=== PATIENT | female | born 1965 | race Caucasian/White ===

== ENCOUNTER → 2024-01-25 | Outpatient (CLI) | payer MEDICAID, SELFPAY ==
--- NOTE | 2024-01-25 07:43 | MRI_ITS ---
STUDY: MRI BRAIN WITH AND WITHOUT CONTRAST REASON FOR EXAM: Female, 58 years old. possible epilepsy; cognitive impairment POSSIBLE EPILEPSY, HALLUCINATIONS, INVOLUNTARY TREMORS TECHNIQUE: Standardized multiplanar fat and water weighted pulse sequences were obtained. IV 14CC CLARISCAN was administered for the contrast portion of the examination. COMPARISON: None. FINDINGS: Normal size of the ventricles and extra-axial spaces for the patient''s age. There are a limited number of small white matter hyperintensities, distributed throughout the deep white matter tracts of the cerebral hemispheres, consistent with mild chronic white matter ischemic changes. There is no evidence for recent intracranial ischemia or other cause of cytotoxic edema on diffusion weighted imaging (DWI). Normal T2* images of the brain without demonstrated susceptibility artifact. There is no demonstrated hemosiderin stain. There are no demyelinating plagues of the supratentorial brain, brainstem or cerebellum. There are no findings suspicious for multiple sclerosis (MS). Normal bilateral basal ganglia. Normal thalami. There is no extra-axial fluid accumulation. Normal flow voids within the major intracranial circulation suggesting patency by spin echo criteria. Normal venous enhancement. There is no enhancing intra-axial or extra-axial abnormality. No suspicious or enhancing lesions of the brain parenchyma present. There is no abnormal thickening or enhancement of meninges or dura. No skull lesions are present. Normal sella turcica, pituitary gland, infundibular stalk, optic chiasm and hypothalamus. Normal tectal plate and pineal gland. Normal midbrain, deysi and medulla. Normal cerebellum. Normal basal cisterns. Normal bilateral temporal bones. Normal bilateral internal auditory canals. No demonstrated orbital abnormality, within the constraints of a routine brain study. Normal visualized paranasal sinuses. Normal calvarium and skull base. Normal visualized soft tissue structures. Normal visualized upper cervical spine. MRI/Brain W/WO Contrast IMPRESSION: 1. Minimal chronic ischemic changes of the brain, as described above. Electronically Signed: Main Cerna MD at 10:04 EDT ,
== END | disposition home or self-care (01) ==
LOC: MRI 07:16
PROVIDERS: PCP Internal Medicine; Referring Provider Psychiatry & Neurology Neurology; Visit Provider Psychiatry & Neurology Neurology
DX: R44.3 Hallucinations, unspecified (principal)
CPT/HCPCS: 70553; A9575

== ENCOUNTER → 2024-02-03 | Outpatient (CLI) | payer MEDICAID, SELFPAY | END | disposition home or self-care (01) | LOC: PSN 08:06 | PROVIDERS: PCP Internal Medicine; Referring Provider Psychiatry & Neurology Neurology; Visit Provider Psychiatry & Neurology Neurology | DX: R56.9 Unspecified convulsions (principal); R44.3 Hallucinations, unspecified | CPT/HCPCS: 95819 ==

== ENCOUNTER 2024-03-18 20:47 | Emergency (ER) | payer MEDICAID, SELFPAY ==
[2024-03-18 20:48] VITALS: BP 123/83; PULSE 83; RESP 16; TEMP 36.8; O2SAT 96; BMI 26.0
[2024-03-18 21:58] LABS: Absolute Lymphocyte Count 1.54 X10^3/uL (0.83-4.51); Absolute Neutrophil Count 7.3 X10^3/uL (2.0-7.7); Basophil% 0.8 % (0-1); Eosinophils% 1.1 % (0-5); Hematocrit 41.4 % (37-47); Lymphocyte # 1.54 X10^3/ul (0.83-4.51); Lymphocyte % 15.3 % (19-41); Mean Corp Hgb Conc 33.8 g/dL (32-36); Mean Corpuscular Hgb 29.7 pg (27.0-32.0); Mean Corpuscular Volume 87.9 fL (81-99); Mean Platelet Vol. 8.3 fl (6.2-12.0); Monocyte% 9.7 % (0-10); Neutrophil # 7.32 X10^3/uL (2.7-7.7); Neutrophil % 72.7 % (47-70); Platelet Count 327 K/mm3 (150-450); RBC Distribution Width CV 12.9 % (11.6-14.6); RBC Distribution Width SD 41.8 fl (35.1-43.9); Red Blood Count 4.71 M/mm3 (4.2-5.4); White Blood Count 10.1 K/mm3 (4.4-11.0)
[2024-03-18 21:59] LABS: Basophil# 0.08 X10^3/uL; Eosinophil# 0.11 X10^3/uL; Monocyte# 0.98 X10^3/uL; NRBC Flagged by Analyzer 0 % (0-5)
[2024-03-18 22:07] LABS: Amphetamine Urine VISTA NEGATIVE (<1000 ng/mL); Barbiturate Urine VISTA NEGATIVE (< 200 ng/mL); Benzodiazepine Urine VISTA NEGATIVE (< 200 ng/mL); Cocaine Urine VISTA NEGATIVE (< 300 ng/mL); Ecstacy Urine VISTA NEGATIVE (< 500 ng/mL); Methadone Urine VISTA NEGATIVE (< 300 ng/mL); PCP Urine VISTA NEGATIVE (< 25 ng/mL); THC Urine VISTA NEGATIVE (< 50 ng/mL); Vista UDS pH Range 6
[2024-03-18 22:17] LABS: Alcohol, Blood (Medical)-Serum < 3.0 mg/dL
[2024-03-18 22:21] LABS: ALB/GLOB Ratio 0.9 RATIO (0.9-2.4); AST(SGOT) 20 U/L (15-37); Alanine Aminotransfer ALT/SGPT 34 U/L (13-56); Albumin, Serum 3.8 g/dL (3.2-5.0); Alkaline Phosphatase 115 U/L (45-117); Anion Gap 6 (5-15); BUN 16 mg/dL (7-18); BUN/Creat Ratio 21.3 RATIO (10-20); Calcium,Total 9.7 mg/dL (8.5-10.1); Chloride 107 mmol/L (98-107); Creatinine, Serum 0.75 mg/dL (0.55-1.02); EST Glomerular Filtration Rate 84 mL/min (>60); Est Glom Filt Rate - Afr Amer 102 mL/min (>60); Estimated Creatinine Clearance 84.74 ml/min; Globulin 4.1 g/dL (2.2-4.2); Glucose 114 mg/dL (74-106); Potassium 3.8 mmol/L (3.5-5.1); Protein, Total 7.9 g/dL (6.4-8.2); Sodium Level 140 mmol/L (136-145)
--- NOTE | 2024-03-18 22:27 | EDS_ITS ---
HPI HPI - Psych History of Present Illness Chief Complaint: Mental Health Narrative Narrative: History and physical is limited secondary to patient's psychiatric condition. 58-year-old female presents from [place] [facility] with increased psychosis after being taken off medications/medication adjustment. She has been pink slipped by the psychiatric nurse practitioner at the facility. It was reported that when they came to her few months ago, she was heavily medicated, and was more nonverbal and would walk to the lunchroom and back. As they adjusted her medications, over the last week she has decompensated and has become more psychotic. She is not redirectable. 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 She was also walking around the facility without clothing. Here in the emergency department, she states that she is nervous but denies any physical symptoms such as chest pain cough, problems with urination, or any other symptoms. PFSH PFS Medical History unable to obtain Home Medications ?Medication ?Instructions ?Recorded ?Last Taken ?Type Bacillus coagulans 2.5 billion cell PO 12/29/23 Unknown History cell chewable tablet (Probiotic (B. coagulans)) acetaminophen 325 mg chewable 650 mg PO Q4-6H PRN 12/29/23 Unknown History tablet bgvpxao-uavxriywjyxqf-fadtbufm 250 2 tab PO ONCE PRN 12/29/23 Unknown History mg-250 mg-65 mg tablet (Excedrin Migraine) atorvastatin 20 mg tablet 20 mg PO QHS 12/29/23 Unknown History benztropine 0.5 mg tablet 0.5 mg PO BID 12/29/23 Unknown History bisacodyl 10 mg rectal suppository 10 mg AL DAILY PRN 12/29/23 Unknown History (Dulcolax (bisacodyl)) bisacodyl 5 mg tablet,delayed 10 mg PO ONCE 12/29/23 Unknown History release coenzyme Q10 100 mg capsule 100 mg PO DAILY 12/29/23 Unknown History (CoQ-10) donepezil 5 mg disintegrating 2.5 mg PO DAILY 12/29/23 Unknown History tablet fluoxetine 60 mg tablet 60 mg PO QAM 12/29/23 Unknown History lamotrigine 200 mg tablet 200 mg PO BID 12/29/23 Unknown History magnesium hydroxide 400 mg/5 mL 30 ml PO DAILY PRN 12/29/23 Unknown History oral suspension (Milk of Magnesia) mineral oil (Fleet Mineral Oil 118 ml AL DAILY PRN 12/29/23 Unknown History enema) perphenazine 8 mg tablet 8 mg PO BID 12/29/23 Unknown History promethazine 25 mg/mL injection 25 mg IM Q8H PRN PRN 12/29/23 Unknown History syringe trazodone 50 mg tablet 25 mg PO QHS 12/29/23 Unknown History Allergy/AdvReac Type Severity Reaction Status Date / Time blue dye Allergy PT UNSURE Verified 03/18/24 21:13 OF REACTION monosodium glutamate (msg) Allergy PT UNSURE Verified 03/18/24 21:13 OF REACTION sertraline (From Zoloft) Allergy PT UNSURE Verified 03/18/24 21:13 OF REACTION shellfish derived Allergy PT UNSURE Verified 03/18/24 21:13 OF REACTION Sulfa (Sulfonamide Allergy unknown Verified 03/18/24 21:13 Antibiotics) Family History unable to obtain Surgical History unable to obtain Social History Smoking Status: Never smoker ROS ROS ED ROS Narrative Unable to obtain from patient's secondary to psychiatric condition. EXAM Physical Exam Narrative Exam Narrative: Afebrile. Vital signs noted. Regular rate and rhythm. Lungs clear to auscultation bilaterally. Abdomen soft nontender with normal active bowel sounds. Ambulatory in ED. Psychiatric examination shows acute psychosis. She states that she sees things but denies any auditory hallucinations. She is able to ambulate to the bathroom and back. She keeps coming out of her room, and fidgeting with something behind the bed. Const Vital Signs: 03/18/24 20:48 03/18/24 23:23 Temperature 98.3 F Temperature Source Temporal Pulse Rate 83 75 Respiratory Rate 16 18 Blood Pressure 123/83 H 109/67 Blood Pressure Mean 96 81 Pulse Ox 96 95 Oxygen Delivery Method Room Air Room Air MDM MDM MDM Narrative Medical decision making narrative: Differential diagnosis includes but not limited to metabolic cause of delirium versus her history of dementia when I reviewed her previous problem list. I feel she has more decompensated psychosis. As she is not redirectable and becoming more agitated, she was administered Geodon 20 mg intramuscularly. I reviewed her laboratory work and she has a white count that is normal at 10.1 with hemoglobin 14.0, hematocrit 41.4, BUN of 16 and creatinine 0.75, normal sodium of 140 and potassium 3.8. Urine for drugs of abuse is negative. Ethanol level is also negative. At this point in time, I feel she is medically cleared for evaluation by the mental health counselor. I do feel that she will need placement in a psychiatric facility as she has decompensated. Currently patient is in stable condition. Patient did require 20 mg of Geodon as she was not redirectable. She kept exiting her room and was becoming more psychotic. At around 1:05 AM, she began screaming, and calling out and becoming more psychotic. She will be given Haldol, Ativan, and Benadryl. She is still pending evaluation by crisis. Patient is in stable condition. History & Record Review Additional record(s) reviewed:: Prior ED visit Lab Data Attestation: I reviewed the patient's lab results. Labs: Laboratory Results - last 24 hr 03/18/24 03/18/24 21:20 21:51 WBC 10.1 RBC 4.71 Hgb 14.0 Hct 41.4 MCV 87.9 MCH 29.7 MCHC 33.8 RDW Std Deviation 41.8 RDW Coeff of Ivan 12.9 Plt Count 327 MPV 8.3 Immature Gran % (Auto) 0.400 Neut % (Auto) 72.7 H Lymph % (Auto) 15.3 L [place] % (Auto) 9.7 Eos % (Auto) 1.1 Baso % (Auto) 0.8 Absolute Neuts (auto) 7.3 Absolute Lymphs (auto) 1.54 Nucleated RBC % 0 Sodium 140 Potassium 3.8 Chloride 107 Carbon Dioxide 27.0 Anion Gap 6 BUN 16 Creatinine 0.75 Estim Creat Clear Calc 84.74 Est GFR (MDRD) Af Amer 102 Est GFR (MDRD) Non-Af 84 BUN/Creatinine Ratio 21.3 H Glucose 114 H Calcium 9.7 Total Bilirubin 0.50 AST 20 ALT 34 Alkaline Phosphatase 115 Total Protein 7.9 Albumin 3.8 Globulin 4.1 Albumin/Globulin Ratio 0.9 Urine Opiates Screen NEGATIVE Urine Methadone Screen NEGATIVE Ur Barbiturates Screen NEGATIVE Ur Phencyclidine Scrn NEGATIVE Ur Amphetamines Screen NEGATIVE MDMA (Ecstasy) Screen NEGATIVE U Benzodiazepines Scrn NEGATIVE Urine Cocaine Screen NEGATIVE U Cannabinoids Screen NEGATIVE Ur Drug Screen Comment Ethyl Alcohol < 3.0 Discharge Plan Triage Chief Complaint: Mental Health ED Provider: Yoel Power Dx/Rx/DC Orders Prescriptions: No Action acetaminophen 325 mg tablet,chewable 650 mg PO Q4-6H PRN donepezil 5 mg tablet,disintegrating 2.5 mg PO DAILY atorvastatin 20 mg tablet 20 mg PO QHS benztropine 0.5 mg tablet 0.5 mg PO BID bisacodyl 5 mg tablet,delayed release (DR/EC) 10 mg PO ONCE coenzyme Q10 [CoQ-10] 100 mg capsule 100 mg PO DAILY bisacodyl [Dulcolax (bisacodyl)] 10 mg suppository 10 mg AL DAILY PRN Excedrin Migraine 250-250-65 mg tablet 2 tab PO ONCE PRN mineral oil [Fleet Mineral Oil] Enema 118 ml AL DAILY PRN Rx Instructions: discard any unused portion fluoxetine 60 mg tablet 60 mg PO QAM lamotrigine 200 mg tablet 200 mg PO BID magnesium hydroxide [Milk of Magnesia] 400 mg/5 mL suspension 30 ml PO DAILY PRN perphenazine 8 mg tablet 8 mg PO BID promethazine 25 mg/mL syringe 25 mg IM Q8H PRN PRN Probiotic (B. coagulans) 2.5 billion cell tablet,chewable PO trazodone 50 mg tablet 25 mg PO QHS Primary Care Provider: Syl Machado Referrals: Syl Machado MD [Primary Care Provider] - Print Language: Hungarian
--- NOTE | 2024-03-18 22:55 | ED.RN ---
Pt yelling, screaming, and trying to leave room. made aware, orders being put in.
[2024-03-18] MEDS: Ziprasidone IM 20 MG/ML VIAL IM (22:58)
[2024-03-18 23:23] VITALS: BP 109/67; PULSE 75; RESP 18; O2SAT 95
--- NOTE | 2024-03-19 01:18 | ED.RN ---
Pt continues to yell and scream while trying to leave room. Pt also states I will bite you. Pt tried to rip off the hand night supervisor dispenser in room. Dr. Power made aware, orders being placed.
[2024-03-19] MEDS: Haloperidol Lactate 5 MG/ML Vial IM (01:22)
[2024-03-19] MEDS: LORazepam 2 MG/ML Syringe IM (01:22)
[2024-03-19] MEDS: DiphenhydrAMINE 50 MG/ML Syringe 25 MG IM (01:22)
[2024-03-19 03:23] VITALS: BP 91/62; PULSE 63; RESP 16; O2SAT 93
[2024-03-19 06:39] VITALS: BP 91/62; PULSE 63; RESP 16; TEMP 36.7; O2SAT 93
--- NOTE | 2024-03-19 06:43 | ED.RN ---
Attempted to call pt's sister Tosin to give update, no answer at this time.
--- NOTE | 2024-03-19 06:51 | ED.RN ---
This RN contacted [facility] and gave nurse Yen an update of pt being transferred to [facility].
[2024-03-19 07:00] VITALS: BP 96/82; PULSE 59; RESP 12; O2SAT 97
--- NOTE | 2024-03-19 09:35 | NURSING ---
GENERATIONS CALLED TO CHANGE LOCATION FROM [place] TO [place] DR[address] PANFILO MONTELONGO [phone] OPT 2
== END 2024-03-19 10:10 ==
LOC: ED 22:41
PROVIDERS: Emergency Provider Emergency Medicine; PCP Internal Medicine; Visit Provider Emergency Medicine
DX: F29 Unspecified psychosis not due to a substance or known physiological condition (principal)
CPT/HCPCS: 80053; 80307; 82077; 85025; 93005; 96372; 99285; J3486

== ENCOUNTER 2024-08-14 05:42 | Day surgery (SDC) | payer MEDICAID, SELFPAY ==
[2024-08-14] VITALS (7 sets, daily range): BP systolic 105–115; BP diastolic 74–82; PULSE 79–91; RESP 16–18; TEMP 36.2–36.6; O2SAT 97–99; BMI 29.5
--- NOTE | 2024-08-14 06:21 | PRE.ANES_ITS ---
ASA Classification* ASA Classification ASA Classification: 2 Assessment & Plan Anesthesia* Anesthesia Assessment Anesthesia Assessment: Discussed sedation and/or anesthesia options, risks, benefits, and alternatives with patient/parents/legal guardian/POA. Questions invited. The patient/parents/legal guardian/POA seems to understand and agrees to proceed with anesthesia plan. Reviewed the physical assessment, medical history, allergy history and patient home medications list prior to surgery/procedure/anesthetic and documented any changes. Performed airway and anesthesia risk assessments. Anesthesia Type Anesthesia Type: General (Pleasant 59 y/o F diagnosed with bipolar/schizo, seems to be well controlled. Otherwise has hx of GERD, ) History Source History Obtained from:: Patient and Chart Anesthesia Focused Assessment* Temperature: 97.7 F Pulse Rate: 91 Blood Pressure: 109/82 Respiratory Rate: 16 Pulse Ox: 99 Oxygen Delivery Method: Room Air Airway Assessment Mouth opens: >3 cm Mallampati Score: II Teeth Condition: Intact and Chipped/Broken (top left) Neck Range of motion (ROM): Full ROM Focused Labs Anesthesia Preop lab: CBC WBC 10.1 K/mm3 (4.4-11.0) 03/18/24 21:51 03/18/24 RBC 4.71 M/mm3 (4.2-5.4) 03/18/24 21:51 03/18/24 Hgb 14.0 g/dL (12.0-15.0) 03/18/24 21:51 03/18/24 Hct 41.4 % (37-47) 03/18/24 21:51 03/18/24 Plt Count 327 K/mm3 (150-450) 03/18/24 21:51 03/18/24 CHEMISTRY Potassium 3.8 mmol/L (3.5-5.1) 03/18/24 21:51 03/18/24 Sodium 140 mmol/L (136-145) 03/18/24 21:51 03/18/24 BUN 16 mg/dL (7-18) 03/18/24 21:51 03/18/24 Creatinine 0.75 mg/dL (0.55-1.02) 03/18/24 21:51 03/18/24 Glucose 114 mg/dL (74-106) H 03/18/24 21:51 03/18/24 COAG Pre-Assessment Diagnosis/Proposed Procedure Planned Operative Procedure(s): COLONOSCOPY Anesthesia History Anesthesia History - sleeve baster: Anesthesia History - sleeve baster Hx Hospitalization No 08/13/24 12:52 Any Problems With Anesthesia No 08/13/24 12:52 Cholinesterase deficiency No 08/13/24 12:52 You/Your Family Experience No 08/13/24 12:52 fever (hyperthermia) with Relationship Recent Exposure to Contagious No 08/14/24 06:07 Disease Does patient have nerve No 08/13/24 12:52 stimulator Patient instructed to have device shut off --Does patient have Pacemaker No 08/14/24 06:07 or ICD? When Was Last Pacemaker Check QUESTION #4 FULL TEXT: You/Your Family Experience fever (hyperthermia) with Anesthesia Last Oral Intake Last Oral intake: Last Oral Intake NPO since 03:00 08/14/24 06:07 Meds taken in AM with sips of water? Meds patient instructed to take am of surgery PONV PONV - sleeve baster: PONV - sleeve baster Female Yes 08/13/24 12:52 HX of Motion Sickness No 08/13/24 12:52 HX of N/V After Surgery No 08/13/24 12:52 Non-Smoker Yes 08/13/24 12:52 Duration of Surgery greater No 08/13/24 12:52 than 60 minutes Number of Risk Factors 2 08/13/24 12:52 PONV Score Moderate Risk 08/13/24 12:52 Height & Weight Height & Weight: Anesthesia: Height & Weight Height 5 ft 6 in 08/14/24 06:07 Weight: 82.9 kg 08/14/24 06:07 Body Mass Index (BMI) 29.5 08/14/24 06:07 Respiratory Assessment Respiratory Assessment - sleeve baster: Respiratory Tract Infection Hx - sleeve baster Hx Respiratory Tract Infection No 08/13/24 12:52 STOP Sleep Apnea STOP Sleep Apnea - sleeve baster: STOP Sleep Apnea - sleeve baster Hx Hypertension No 08/13/24 12:52 Hx Sleep Apnea No 08/13/24 12:52 CPAP BIPAP Do you snore loudly (louder No 08/13/24 12:52 than talking or can be heard Do you often feel tired/ Yes 08/13/24 12:52 fatigued/ sleepy during daytime? Has anyone observed you stop No 08/13/24 12:52 breathing during sleep? STOP Results Negative 08/13/24 12:52 QUESTION #5 FULL TEXT : Do you snore loudly (louder than talking or can be heard through closed doors)? 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 Specify any problems Hx of Preganancy in last 3 No 08/13/24 12:52 Months Nurse Filling Out Transfusion MGRIFFITH 08/13/24 12:52 & Questions: Date: 08/13/24 08/13/24 12:52 Time: 12:53 08/13/24 12:52 Patient unable to answer at this time (ie. confused, unrespo /Reproduction History /Reproductive History - sleeve baster: /Reproductive Hx- sleeve baster Hx Now Gestational Age (in weeks): EDC: Hx Hx Para Hx Section SAB PFSH Medical History Gastric reflux Migraine headache Depression High cholesterol Schizophrenia Bipolar disorder Anxiety Non-smoker Elevated liver enzymes Calculus of gallbladder without cholecystitis without obstruction Transaminitis Home Medications ?Medication ?Instructions ?Recorded ?Last Taken ?Type benztropine 0.5 mg tablet 0.5 mg PO BID 12/29/2308/13 History lamotrigine 200 mg tablet 200 mg PO BID 12/29/2308/13 History donepezil 5 mg tablet (Aricept) 5 mg PO QHS 03/19/24 0 08/13/24 History docusate sodium 100 mg capsule 100 mg PO BID PRN const ipation 06/20/24 Unknown History famotidine 40 mg tablet 40 mg PO QHS #90 tabs 08/13/24 Rx melatonin 3 mg capsule 3 mg PO HS 06/20/24 08/13/24 History mirtazapine 15 mg tablet 15 mg PO QHS 06/20/24 History omeprazole 20 mg capsule,delayed 20 mg PO QDAY 5 Unknown History release paliperidone 6 mg tablet,extended 6 mg PO QAM 06/20/24 08/13/24 History release 24 hr polyethylene glycol 3350 17 4 g PO QDAY 06/20/2408/13 History gram/dose oral powder potassium chloride 20 mEq 20 meq PO QDAY 06/20/2407/28 History tablet,extended release acetaminophen 325 mg capsule 325 mg PO Q4H PRN fever o r pain 08/13/24 Unknown History Allergy/AdvReac Type Severity Reaction Status Date / Time blue dye Allergy PT UNSURE Verified 08/14/24 06:05 OF REACTION monosodium glutamate (msg) Allergy PT UNSURE Verified 08/14/24 06:05 OF REACTION sertraline (From Zoloft) Allergy PT UNSURE Verified 08/14/24 06:05 OF REACTION shellfish derived Allergy PT UNSURE Verified 08/14/24 06:05 OF REACTION Sulfa (Sulfonamide Allergy unknown Verified 08/14/24 06:05 Antibiotics) Social History Smoking Status: Never smoker Review of Systems (Anesthesia) ROS Narrative System reviewed and no additional complaints, except as documented. Physical Exam Const alert, oriented x3 and average body habitus Resp normal respiratory effort, normal air movement and clear to auscultation bilaterally Cardio regular rate, regular rhythm, no murmurs and diaphoretic
--- NOTE | 2024-08-14 06:30 | EGD_PTH ---
PATIENT: VIDYA FAN LOC: EN U#:[id number] AGE/SX: 59/F ROOM: RE08/14/[address]: Dr. Lius Frye DO : 1965 BED: DIS: 08/14/2024 SPEC #: [id number] RECD: 08/14/24 10:42 STATUS: IRAIDA JONES #: [id number] MARTHA: 08/14/24 06:[address]: Luis Frye DEPT: SURGICAL PATHOLOGY RECD BY: Belen Stoll ENTERED: 08/14/24 12:23 SP TYPE: EGD BIOPSY LINDA DR: Dr. Syl Machado MD Tissues: A - Esophagus, NOS B - COLON BIOPSY C - Transverse colon Procedures: Surgery Specimen Level IV HEADER OPERATION: Colonoscopy with polyp biopsy and polypectomy, EGD with biopsy PRE-OP DIAGNOSIS: Personal history of colonic polyps, GERD TISSUE SUBMITTED: A- Distal esophagus biopsy, B- Hepatic flexure polyp, C- Transverse colon polyp biopsy MICROSCOPIC DIAGNOSIS A. Distal esophagus, biopsy: * Squamous mucosa with reactive change. * Columnar mucosa negative for goblet cell metaplasia. B. Colon, hepatic flexure, polyp, biopsy: * Tubulovillous adenoma, multiple fragments. C. Colon, transverse, polyp, biopsy: * Tubular adenoma. MICROSCOPIC DESCRIPTION Slides are reviewed. GROSS DESCRIPTION A. Received in fixative is one container labeled with the patient's name and designated Distal esophagus biopsy. The specimen consists of multiple irregular fragments of light feldman soft tissue that in aggregate measure 1.2 x 0.5 x 0.2 cm. The specimen is totally submitted in one cassette. B. Received in fixative is one container labeled with the patient's name and designated Hepatic flexure polyp. The specimen consists of multiple irregular fragments of light feldman soft tissue that in aggregate measure 2.3 x 1.3 x 0.3 cm. The specimen is totally submitted in one cassette. C. Received in fixative is one container labeled with the patient's name and designated Transverse colon polyp biopsy. The specimen consists of multiple irregular fragments of light feldman soft tissue that in aggregate measure 0.7 x 0.4 x 0.2 cm. The specimen is totally submitted in one cassette. MS/mr 08/14/2024 CPT:[id number]
--- NOTE | 2024-08-14 07:01 | PCM.HP.STD ---
HPI - General General Date of Admission: 08/14/24 Date of Service: 08/14/24 Chief Complaint: gerd and screening colon HPI Narrative VIDYA FAN, is a 59 F who presents the evaluation of GERD and CRS COLON: 2017 SSP - recommended recall was for 3 years - denies any change in bowel habits - denies any pain - denies any bleeding - denies any family h/o colon CA - denies any heart or lung disease - denies any kidney disease - denies any weight loss - she c/o GERD for the past 2 years - worse when she lays down - no issues after eating - she reports at least 3-4 hours between dinner and bed - denies any dysphagia - she is on Omeprazole 20mg every morning - has been elevating head with pillows - reports waking at 10 or 11pm and unable to relieve HB - denies any heart or lung disease PFSH Medical History Gastric reflux Migraine headache Depression High cholesterol Schizophrenia Bipolar disorder Anxiety Non-smoker Elevated liver enzymes Calculus of gallbladder without cholecystitis without obstruction Transaminitis Home Medications ?Medication ?Instructions ?Recorded ?Last Taken ?Type benztropine 0.5 mg tablet 0.5 mg PO BID 12/29/23 08/13/24 History lamotrigine 200 mg tablet 200 mg PO BID 12/29/23 08/13/24 History donepezil 5 mg tablet (Aricept) 5 mg PO QHS 03/19/24 08/13/24 History docusate sodium 100 mg capsule 100 mg PO BID PRN constipation 06/20/24 Unknown History famotidine 40 mg tablet 40 mg PO QHS #90 tabs 06/20/24 08/13/24 Rx melatonin 3 mg capsule 3 mg PO HS 06/20/24 08/13/24 History mirtazapine 15 mg tablet 15 mg PO QHS 06/20/24 08/13/24 History omeprazole 20 mg capsule,delayed 20 mg PO QDAY 06/20/24 Unknown History release paliperidone 6 mg tablet,extended 6 mg PO QAM 06/20/24 08/13/24 History release 24 hr polyethylene glycol 3350 17 4 g PO QDAY 06/20/24 08/13/24 History gram/dose oral powder potassium chloride 20 mEq 20 meq PO QDAY 06/20/24 08/13/24 History tablet,extended release acetaminophen 325 mg capsule 325 mg PO Q4H PRN fever or pain 08/13/24 Unknown History Allergy/AdvReac Type Severity Reaction Status Date / Time blue dye Allergy PT UNSURE Verified 08/14/24 06:05 OF REACTION monosodium glutamate (msg) Allergy PT UNSURE Verified 08/14/24 06:05 OF REACTION sertraline (From Zoloft) Allergy PT UNSURE Verified 08/14/24 06:05 OF REACTION shellfish derived Allergy PT UNSURE Verified 08/14/24 06:05 OF REACTION Sulfa (Sulfonamide Allergy unknown Verified 08/14/24 06:05 Antibiotics) Social History Smoking Status: Never smoker ROS Constitutional Constitutional: Denies fatigue, fever(s), poor appetite, weight gain or weight loss Gastrointestinal Gastrointestinal: Denies belching, bloating, change in bowel habits, change in stool character, chewing difficulty, coffee ground emesis, constipation, cramping, diarrhea, dyspepsia, dysphagia, early satiety, excessive flatus, fecal incontinence, heartburn, hematemesis, hematochezia, hemorrhoids, loose stools, melena, nausea, odynophagia, rectal bleeding, tenesmus, vomiting or weight changes Vital Signs Vital Signs Vital Signs: 08/14/24 06:07 08/14/24 06:07 08/14/24 06:23 Temperature 97.7 F L 97.7 F L Temperature Source Temporal Pulse Rate 91 91 Respiratory Rate 16 16 Respiratory Pattern Normal Blood Pressure 109/82 H 109/82 H Blood Pressure Mean 91 Blood Pressure Source Monitor Blood Pressure Position Semi-Fowlers Blood Pressure Location Right Arm Pulse Ox 99 99 Oxygen Delivery Method Room Air Room Air Weight Weight: 182 lb 12.211 oz Body Mass Index (BMI) 29.5 Physical Exam Const alert, oriented x3, no apparent distress and healthy appearing General Appearance: cooperative GI normal to inspection, nondistended, normoactive bowel sounds, soft to palpation, non-tender and non-distended Percussion: normal to percussion Rectal Exam: deferred Assessment & Plan Assessment/Plan (1) GERD (gastroesophageal reflux disease): (2) Personal history of colonic polyps: PLAN: Assessment and Plan Assessment and Plan (1) Personal history of colonic polyps: Status: Acute (2) GERD (gastroesophageal reflux disease): Status: Acute Medications: New famotidine 40 mg PO QHS 90 tabs 3RF Plan 58y/o female presents for consultation for personal history of SSP in 2017. PMH is significant for hyperlipidemia, bipolar disorder, depression, obsessive-compulsive disorder, and schizoaffective disorder. She is being followed by Dr. Quinteros and was last seen 05/07/2024 for follow-up of hallucination, seizures and altered mental state. CBC and transaminases were unremarkable 03/18/2024. She complains of increased in GERD keeping her up at HS. I have added pepcid at HS in addition to Omeprazole she is taking every morning. She will schedule colonoscopy and EGD. Plan Details Follow Up: 3 Months
--- NOTE | 2024-08-14 07:43 | OP.EGD_ITS ---
Patient Name: Joleen Sevilla Procedure Date: 08/14/2024 6:27 AM Date of : 1965 Age: 59 Procedure: Upper GI endoscopy Indications: Dysphagia, Suspected esophageal reflux Providers: Luis Frye DO Medicines: Monitored Anesthesia Care Patient Profile: This is a 59 year old female. Refer to note in patient chart for documentation of history and physical. Patient has symptoms of acute dysphagia and acute heartburn. Complications: No immediate complications. Procedure: Pre-Anesthesia Assessment: - Prior to the procedure, a History and Physical was performed, and patient medications and allergies were reviewed. The patient is competent. The risks and benefits of the procedure and the sedation options and risks were discussed with the patient. All questions were answered and informed consent was obtained. Patient identification and proposed procedure were verified by the physician in the pre-procedure area. Mental Status Examination: alert and oriented. Airway Examination: normal oropharyngeal airway and neck mobility. Respiratory Examination: clear to auscultation. CV Examination: normal. Prophylactic Antibiotics: The patient does not require prophylactic antibiotics. Prior Anticoagulants: The patient has taken no anticoagulant or antiplatelet agents. ASA Grade Assessment: II - A patient with mild systemic disease. After reviewing the risks and benefits, the patient was deemed in satisfactory condition to undergo the procedure. The anesthesia plan was to use monitored anesthesia care (MAC). Immediately prior to administration of medications, the patient was re-assessed for adequacy to receive sedatives. The heart rate, respiratory rate, oxygen saturations, blood pressure, adequacy of pulmonary ventilation, and response to care were monitored throughout the procedure. The physical status of the patient was re-assessed after the procedure. After obtaining informed consent, the endoscope was passed under direct vision. Throughout the procedure, the patient's blood pressure, pulse, and oxygen saturations were monitored continuously. The Colonoscope was introduced through the mouth, and advanced to the second part of duodenum. The upper GI endoscopy was accomplished without difficulty. The patient tolerated the procedure well. Scope In: 7:14:16 AM Scope Out: 7:19:39 AM Total Procedure Duration Time 0 hours 5 minutes 23 seconds Findings: LA Grade C (one or more mucosal breaks continuous between tops of 2 or more mucosal folds, less than 75% circumference) esophagitis with no bleeding was found 37 to 40 cm from the incisors. Biopsies were taken with a cold forceps for histology. Verification of patient identification for the specimen was done. Estimated blood loss was minimal. A moderate Schatzki ring was found at the gastroesophageal junction. A guidewire was placed and the scope was withdrawn. Dilation was performed with a Savary dilator with no resistance at 54 Fr. The dilation site was examined and showed. Estimated blood loss was minimal. A medium-sized hiatal hernia was present. No gross lesions were noted in the first portion of the duodenum. Impression: - LA Grade C reflux esophagitis with no bleeding. Biopsied. - Moderate Schatzki ring. Dilated. - Medium-sized hiatal hernia. - No gross lesions in the first portion of the duodenum. Recommendation: - Discharge patient to home. - Resume previous diet. - Continue present medications. - Await pathology results. -Omeprazole 20 mg p.o. twice daily Procedure Code(s): --- Professional --- 68584, Esophagogastroduodenoscopy, flexible, transoral; with insertion of guide wire followed by passage of dilator(s) through esophagus over guide wire 51865, 59,51, Esophagogastroduodenoscopy, flexible, transoral; with biopsy, single or multiple CPT copyright 2021 [employer]. All rights reserved. The codes documented in this report are preliminary and upon death surveys coder review may be revised to meet current compliance requirements. Luis Frye DO 08/14/2024 7:42:12 AM This report has been signed electronically. Number of Addenda: 0 Note Initiated On: 08/14/2024 6:27 AM
--- NOTE | 2024-08-14 07:43 | OP.CCLET_ITS ---
08/14/2024 Syl Machado Md Re : Upper GI endoscopy procedure for Joleen Sevilla Dear Dr. Machado This procedure was performed on Wednesday, August 14, 2024. My impressions and recommendations are as follows: Impressions : - LA Grade C reflux esophagitis with no bleeding. Biopsied. - Moderate Schatzki ring. Dilated. - Medium-sized hiatal hernia. - No gross lesions in the first portion of the duodenum. Recommendations : - Discharge patient to home. - Resume previous diet. - Continue present medications. - Await pathology results. -Omeprazole 20 mg p.o. twice daily My findings are described in the full procedure note, which is enclosed. If I can be of further assistance, please feel free to contact me at . Sincerely, Luis Frye, 08/14/2024 7:42:12 AM This report has been signed electronically.
--- NOTE | 2024-08-14 07:44 | PCM.POST.ANE ---
Anesthesia: Postop Eval I Current Vital Signs Temperature: 97.8 F Pulse Rate: 82 Blood Pressure: 105/74 Respiratory Rate: 16 Pulse Ox: 99 Assessment Airway patent: Yes Spontaneous unlabored respirations: Yes nausea: No Vomiting: No Anesthesia Complication: No Fluid Hydration Crystalloid volume administer (ml): 30 Total IV fluid infused: 30 Progress Note Anesthesia document: Postop Eval 1 completed: Yes
--- NOTE | 2024-08-14 07:45 | OP.CCLET_ITS ---
08/14/2024 Syl Machado Md Re : Colonoscopy procedure for Joleen Sevilla Dear Dr. Machado This procedure was performed on Wednesday, August 14, 2024. My impressions and recommendations are as follows: Impressions : - Diverticulosis in the recto-sigmoid colon and in the sigmoid colon. - Two 6 mm polyps in the transverse colon, removed with a jumbo cold forceps. Resected and retrieved. - One 11 mm polyp at the hepatic flexure, removed with a hot snare. Resected and retrieved. Recommendations : - Repeat colonoscopy in 3 years for surveillance. - Continue present medications. My findings are described in the full procedure note, which is enclosed. If I can be of further assistance, please feel free to contact me at . Sincerely, Luis Frye, 08/14/2024 7:44:52 AM This report has been signed electronically.
--- NOTE | 2024-08-14 07:45 | OP.COLON_ITS ---
Patient Name: Joleen Sevilla Procedure Date: 08/14/2024 7:20 AM Date of : 1965 Age: 59 Procedure: Colonoscopy Indications: Follow-up for history of adenomatous polyps in the colon Providers: Luis Frye DO Medicines: Monitored Anesthesia Care Patient Profile: This is a 59 year old female. Refer to note in patient chart for documentation of history and physical. Patient has symptoms of acute dysphagia and acute heartburn. Last Colonoscopy: 3 years ago. Complications: No immediate complications. Procedure: Pre-Anesthesia Assessment: - Prior to the procedure, a History and Physical was performed, and patient medications and allergies were reviewed. The patient is competent. The risks and benefits of the procedure and the sedation options and risks were discussed with the patient. All questions were answered and informed consent was obtained. Patient identification and proposed procedure were verified by the physician in the pre-procedure area. Mental Status Examination: alert and oriented. Airway Examination: normal oropharyngeal airway and neck mobility. Respiratory Examination: clear to auscultation. CV Examination: normal. Prophylactic Antibiotics: The patient does not require prophylactic antibiotics. Prior Anticoagulants: The patient has taken no anticoagulant or antiplatelet agents. ASA Grade Assessment: II - A patient with mild systemic disease. After reviewing the risks and benefits, the patient was deemed in satisfactory condition to undergo the procedure. The anesthesia plan was to use monitored anesthesia care (MAC). Immediately prior to administration of medications, the patient was re-assessed for adequacy to receive sedatives. The heart rate, respiratory rate, oxygen saturations, blood pressure, adequacy of pulmonary ventilation, and response to care were monitored throughout the procedure. The physical status of the patient was re-assessed after the procedure. After I obtained informed consent, the scope was passed under direct vision. Throughout the procedure, the patient's blood pressure, pulse, and oxygen saturations were monitored continuously. The Colonoscope was introduced through the anus and advanced to the cecum, identified by appendiceal orifice and ileocecal valve. The colonoscopy was performed without difficulty. The patient tolerated the procedure well. The quality of the bowel preparation was adequate. The ileocecal valve, appendiceal orifice, and rectum were photographed. Scope In: 7:22:48 AM Scope Withdrawal Time 0 hours 12 minutes 29 seconds Scope Out: 7:37:46 AM Total Procedure Duration Time 0 hours 14 minutes 58 seconds Findings: The perianal and digital rectal examinations were normal. A few small-mouthed diverticula were found in the recto-sigmoid colon and sigmoid colon. Two sessile polyps were found in the transverse colon. The polyps were 6 mm in size. These polyps were removed with a jumbo cold forceps. Resection and retrieval were complete. Verification of patient identification for the specimen was done. Estimated blood loss was minimal. An 11 mm polyp was found in the hepatic flexure. The polyp was sessile. The polyp was removed with a hot snare. Resection and retrieval were complete. Verification of patient identification for the specimen was done. Estimated blood loss was minimal. Impression: - Diverticulosis in the recto-sigmoid colon and in the sigmoid colon. - Two 6 mm polyps in the transverse colon, removed with a jumbo cold forceps. Resected and retrieved. - One 11 mm polyp at the hepatic flexure, removed with a hot snare. Resected and retrieved. Recommendation: - Repeat colonoscopy in 3 years for surveillance. - Continue present medications. Procedure Code(s): --- Professional --- 97571, Colonoscopy, flexible; with removal of tumor(s), polyp(s), or other lesion(s) by snare technique 18722, 59, Colonoscopy, flexible; with biopsy, single or multiple CPT copyright 2021 [employer]. All rights reserved. The codes documented in this report are preliminary and upon yeast culture operator review may be revised to meet current compliance requirements. Luis Frye DO 08/14/2024 7:44:52 AM This report has been signed electronically. Number of Addenda: 0 Note Initiated On: 08/14/2024 7:20 AM
--- NOTE | 2024-08-14 07:50 | POSTOPAN2_ITS ---
Anesthesia Postop Eval I Sum Postop Eval Completion status Anesthesia document: Postop Eval 1 completed: Yes Anesthesia Postop Eval I Summary Anesthesia Postop Eval I Summary: Anesthesia Postop Eval I: Assessment Summary Airway patent Yes 08/14/24 07:44 MEDICAL IMAGING SPECIALIST.[email or web address] Spontaneous unlabored Yes 08/14/24 07:44 MEDICAL IMAGING SPECIALIST.TNES respirations Mental status nausea No 08/14/24 07:44 MEDICAL IMAGING SPECIALIST.TNES Vomiting No 08/14/24 07:44 MEDICAL IMAGING SPECIALIST.TNES Anesthesia Postop Eval I: Fluid Summary Crystalloid volume administer 30 08/14/24 07:44 MEDICAL IMAGING SPECIALIST.TNES (ml) Colloids volume administered ( ml) Blood Product volume administered (ml) Total IV fluid infused 30 08/14/24 07:44 MEDICAL IMAGING SPECIALIST.TNES Anesthesia Postop Eval I: Summary Notes Anesthesia Complication No 08/14/24 07:44 MEDICAL IMAGING SPECIALIST.TNES Anesthesia Complication Comment: Post-operative progress note Anesthesia: Postop Eval II Evaluation Mental status: Awake Pain Level: 0 nausea: No Vomiting: No Complications Anesthesia Complication: No
--- NOTE | 2024-08-14 07:50 | PCM.POSTANE2 ---
Anesthesia Postop Eval I Sum Postop Eval Completion status Anesthesia document: Postop Eval 1 completed: Yes Anesthesia Postop Eval I Summary Anesthesia Postop Eval I Summary: Anesthesia Postop Eval I: Assessment Summary Airway patent Yes 08/14/24 07:44 DIRECTOR OF OPERATIONS HOME HEALTH.TNES Spontaneous unlabored Yes 08/14/24 07:44 DIRECTOR OF OPERATIONS HOME HEALTH.TNES respirations Mental status nausea No 08/14/24 07:44 DIRECTOR OF OPERATIONS HOME HEALTH.TNES Vomiting No 08/14/24 07:44 DIRECTOR OF OPERATIONS HOME HEALTH.TNES Anesthesia Postop Eval I: Fluid Summary Crystalloid volume administer 30 08/14/24 07:44 DIRECTOR OF OPERATIONS HOME HEALTH.TNES (ml) Colloids volume administered ( ml) Blood Product volume administered (ml) Total IV fluid infused 30 08/14/24 07:44 DIRECTOR OF OPERATIONS HOME HEALTH.TNES Anesthesia Postop Eval I: Summary Notes Anesthesia Complication No 08/14/24 07:44 DIRECTOR OF OPERATIONS HOME HEALTH.TNES Anesthesia Complication Comment: Post-operative progress note Anesthesia: Postop Eval II Evaluation Mental status: Awake Pain Level: 0 nausea: No Vomiting: No Complications Anesthesia Complication: No
== END 2024-08-14 08:19 | disposition home or self-care (01) ==
LOC: EN 05:44 → AC 05:47
PROVIDERS: PCP Internal Medicine; Referring Provider Internal Medicine; Visit Provider Internal Medicine Gastroenterology
PROC: 0DJD8ZZ Inspection of Lower Intestinal Tract, Via Natural or Artificial Opening Endoscopic (ICD-10-PCS; CPT 45378; principal; 2024-08-14 06:25)
DX: Z12.11 Encounter for screening for malignant neoplasm of colon (principal); F31.9 Bipolar disorder, unspecified; K21.00 Gastro-esophageal reflux disease with esophagitis, without bleeding; E78.00 Pure hypercholesterolemia, unspecified; K57.30 Diverticulosis of large intestine without perforation or abscess without bleeding; K44.9 Diaphragmatic hernia without obstruction or gangrene; Z86.0100 Personal history of colon polyps, unspecified; Z79.899 Other long term (current) drug therapy; K22.2 Esophageal obstruction; K63.5 Polyp of colon
CPT/HCPCS: 45385; 43239; 45380; 43248; 88305; A4216; C1769

== ENCOUNTER → 2024-08-17 | Outpatient (CLI) | payer MEDICAID, SELFPAY ==
[2024-08-17 10:30] LABS: Erythrocyte Sedimentation Rate 22 mm/hr (0-30)
[2024-08-17 10:32] LABS: Hematocrit 37.1 % (37-47); Hemoglobin 12.3 g/dL (12.0-15.0); Mean Corp Hgb Conc 33.2 g/dL (32-36); Mean Corpuscular Hgb 28.1 pg (27.0-32.0); Mean Corpuscular Volume 84.9 fL (81-99); Mean Platelet Vol. 8.5 fl (6.2-12.0); Platelet Count 290 K/mm3 (150-450); RBC Distribution Width CV 13.1 % (11.6-14.6); RBC Distribution Width SD 40.5 fl (35.1-43.9); Red Blood Count 4.37 M/mm3 (4.2-5.4)
[2024-08-17 11:12] LABS: Ammonia 15.8 umol/L (11-51)
[2024-08-17 11:15] LABS: ALB/GLOB Ratio 1.2 RATIO (0.9-2.4); AST(SGOT) 17 U/L (<=31); Alanine Aminotransfer ALT/SGPT 13 U/L (<=34); Albumin, Serum 3.9 g/dL (3.5-5.0); Alkaline Phosphatase 114 U/L (35-104); Anion Gap 11 (5-15); BUN 10 mg/dL (4-19); BUN/Creat Ratio 14.7 RATIO (10-20); Calcium,Total 9.1 mg/dL (7.6-11.0); Carbon Dioxide 23.2 mmol/L (21.0-32.0); Chloride 104 mmol/L (98-108); Creatinine, Serum 0.71 mg/dL (0.70-1.20); EST Glomerular Filtration Rate 99 (>60); Globulin 3.3 g/dL (2.2-4.2); Glucose 92 mg/dL (70-99); Magnesium 2.1 mg/dL (1.5-2.2); Potassium 3.8 mmol/L (3.3-5.1); Protein, Total 7.2 g/dL (5.9-8.4); Sodium Level 138 mmol/L (133-145); Total Bilirubin 0.46 mg/dL (0.00-1.30)
[2024-08-17 12:12] LABS: Vitamin B12 473 pg/mL (180-914)
[2024-08-21 14:08] LABS: ANTINUCLEAR ANTIBODIES DIRECT Negative (Negative); Vitamin D 1,25-Dihydroxy 45.2 pg/mL (24.8-81.5)
[2024-08-21 15:08] LABS: Lamotrigine (Lamictal) Level 12.2 ug/mL (2.0-20.0); Vitamin B1, Thiamine 127.9 nmol/L (66.5-200.0)
== END | disposition home or self-care (01) ==
PROVIDERS: PCP Internal Medicine; Referring Provider Psychiatry & Neurology Neurology; Visit Provider Psychiatry & Neurology Neurology
DX: R56.9 Unspecified convulsions (principal); R44.3 Hallucinations, unspecified
CPT/HCPCS: 86225; 86235; 36415; 80053; 82140; 82542; 82607; 82652; 82746; 83735; 84425; 84443; 85027; 85652; 86038; 86140

== ENCOUNTER 2024-11-21 06:00 | Day surgery (SDC) | payer MEDICAID, SELFPAY ==
--- NOTE | 2024-11-20 16:38 | PAT.ANE_ITS ---
Pre-Assessment Diagnosis/Proposed Procedure Planned Operative Procedure(s): EGD Anesthesia History Anesthesia History - client service professional: Anesthesia History - client service professional Hx Hospitalization No 11/20/24 12:32 Any Problems With Anesthesia No 11/20/24 12:32 Cholinesterase deficiency No 11/20/24 12:32 You/Your Family Experience No 11/20/24 12:32 fever (hyperthermia) with Relationship Recent Exposure to Contagious No 08/14/24 06:07 Disease Does patient have nerve No 11/20/24 12:32 stimulator Patient instructed to have device shut off --Does patient have Pacemaker or ICD? When Was Last Pacemaker Check QUESTION #4 FULL TEXT: You/Your Family Experience fever (hyperthermia) with Anesthesia Last Oral Intake Last Oral intake: Last Oral Intake NPO since Meds taken in AM with sips of water? Meds patient instructed to take am of surgery PONV PONV - client service professional: PONV - client service professional Female Yes 11/20/24 12:32 HX of Motion Sickness No 11/20/24 12:32 HX of N/V After Surgery No 11/20/24 12:32 Non-Smoker Yes 11/20/24 12:32 Duration of Surgery greater No 11/20/24 12:32 than 60 minutes Number of Risk Factors 2 11/20/24 12:32 PONV Score Moderate Risk 11/20/24 12:32 Height & Weight Height & Weight: Anesthesia: Height & Weight Height 5 ft 6 in 09/13/24 09:15 Respiratory Assessment Respiratory Assessment - client service professional: Respiratory Tract Infection Hx - client service professional Hx Respiratory Tract Infection No 11/20/24 12:32 STOP Sleep Apnea STOP Sleep Apnea - client service professional: STOP Sleep Apnea - client service professional Hx Hypertension No 11/20/24 12:32 Hx Sleep Apnea No 11/20/24 12:32 CPAP BIPAP Do you snore loudly (louder No 11/20/24 12:32 than talking or can be heard Do you often feel tired/ No 11/20/24 12:32 fatigued/ sleepy during daytime? Has anyone observed you stop No 11/20/24 12:32 breathing during sleep? STOP Results Negative 11/20/24 12:32 QUESTION #5 FULL TEXT : Do you snore loudly (louder than talking or can be heard through closed doors)? Tobacco Use History Tobacco Use History - client service professional: Tobacco Use History - client service professional Tobacco Use Smoking Status Never smoker 11/20/24 12:32 Hx Tobacco Use No 11/20/24 12:32 Years Smoking Packs Smoked per Day Smoking Cessation Date was within the last 15 years Hx Smoking Cessation Date Hx Smoking Cessation Counseling Hematologic Medial History Hematologic Hx - client service professional: Hematologic Medical Hx - health unit supervisor Hx of Blood Transfusion No 11/20/24 12:32 Hx of Transfusion in last 3 No 11/20/24 12:32 Months Date of Last Transfusion (if within last 3 months) Ever experience any problems No 11/20/24 12:32 with transfusion(s)? Specify any problems Hx of Preganancy in last 3 No 11/20/24 12:32 Months Nurse Filling Out Transfusion DSCHRIBER 11/20/24 12:32 & Questions: Date: 11/20/24 11/20/24 12:32 Time: 12:34 11/20/24 12:32 Patient unable to answer at this time (ie. confused, unrespo /Reproduction History /Reproductive History - client service professional: /Reproductive Hx- client service professional Hx Now No 11/20/24 12:32 Gestational Age (in weeks): EDC: Hx Hx Para Hx Section SAB No 11/20/24 12:32 [facility] Medical History (Updated 11/20/24 @ 12:39 by Jennie Troy) Legal blindness Esophagitis Essential tremor Lives in [place] [facility] Gastric reflux Migraine headache Depression High cholesterol Schizophrenia Bipolar disorder Anxiety Non-smoker Elevated liver enzymes Calculus of gallbladder without cholecystitis without obstruction Transaminitis Home Medications ?Medication ?Instructions ?Recorded ?Last Taken ?Type benztropine 0.5 mg tablet 0.5 mg PO BID 12/29/2308/13 History lamotrigine 200 mg tablet 200 mg PO BID 12/29/2308/13 History donepezil 5 mg tablet (Aricept) 5 mg PO QHS 03/19/24 0 08/13/24 History docusate sodium 100 mg capsule 100 mg PO BID PRN const ipation 06/20/24 Unknown History melatonin 3 mg capsule 3 mg PO HS 06/20/24 08/13/24 History mirtazapine 15 mg tablet 15 mg PO QHS 06/20/24 History paliperidone 6 mg tablet,extended 9 mg PO QHS 06/20/24 08/13/24 History release 24 hr polyethylene glycol 3350 17 4 g PO QDAY PRN constipati on 06/20/24 08/13/24 Hi story gram/dose oral powder potassium chloride 20 mEq 20 meq PO QDAY 06/20/2407/28 History tablet,extended release acetaminophen 325 mg capsule 650 mg PO Q4H PRN fever o r pain 08/13/24 Unknown History cetirizine 10 mg tablet (Zyrtec) 10 mg PO DAILY PRN al lergy symptoms 11/20/24 Unknown History hydroxyzine HCl 25 mg tablet 25 mg PO Q6H PRN anxiety 11/20/24 Unknown History ibuprofen 400 mg tablet (IBU) 400 mg PO Q8H PRN pain 0 11/20/24 Unknown History Allergy/AdvReac Type Severity Reaction Status Date / Time blue dye Allergy PT UNSURE Verified 11/20/24 12:23 OF REACTION monosodium glutamate (msg) Allergy PT UNSURE Verified 11/20/24 12:23 OF REACTION sertraline (From Zoloft) Allergy PT UNSURE Verified 11/20/24 12:23 OF REACTION shellfish derived Allergy PT UNSURE Verified 11/20/24 12:23 OF REACTION Sulfa (Sulfonamide Allergy unknown Verified 11/20/24 12:23 Antibiotics) Surgical History (Updated 11/20/24 @ 12:39 by Jennie Troy) History of esophagogastroduodenoscopy (EGD) Social History Smoking Status: Never smoker Audit: Pertinent Findings Pertinent Findings EKG Perinent findings: March 19, 2024. Normal sinus rhythm. Prolonged QT. Recommendation Anesthesia Recommendation Anesthesia recommendation: OPTIMIZED for anesthesia
[2024-11-21] VITALS (7 sets, daily range): BP systolic 110–125; BP diastolic 71–88; PULSE 74–88; RESP 14–20; TEMP 36.1–36.7; O2SAT 93–97; BMI 30.2
--- OUTSIDE RECORDS SUMMARY | 2024-11-21 06:06 | XMS RPT_ITS | CCD ---
Author Organization [facility] Care Team Providers Care Digital Circuit Designer Name Role Phone RICHTER FELIPE C Unavailable Unavailable RICHTER, FELIPE C Unavailable Unavailable NO, DOCTOR ON Unavailable Unavailable RICHTER, FELIPE C Unavailable Unavailable NO, DOCTOR ON Unavailable Unavailable Nellie Villa Unavailable Unavailable Unavailable Allen, Mrs. Nellie Avalos Referring Unavailabl e Butt, Mrs. Nellie Avalos Attending Unavailabl e Unavailable Primary Care Provider Unavailabl e PHYSICIAN, NOT RECORDED Primary Care Physician U navailhoang PHYSICIAN, NOT RECORDED Primary Care Unavaila chiki LOPEZ MD, DR HELMS Attending Unavailab le PUNIA, IVETT Admitting Unavailable WARBEL, DONA Referring Unavailable ADEN BRENNER Attending Unavailable WARBEL, DONA Referring Unavailable PUNIA, IVETT Attending Unavailable PUNIA, IVETT Admitting Unavailable Dr. Oni Quinteros MD Attending Provider [phone] Buddy MILLER, Dr. Streeter Primary Care Provider Dr. Syl Owen MD Referring Provider Unavaila chiki Crabtree NP-CFozia Attending Provider Dr. Luis Frye DO Attending Provider Dr. Luis Frye DO Other Provider Dr. Oni Quinteros MD Referring Provider [phone] IAN MILLER, DEVENDRA Attending Unavailable UBDDY MILLER, DR SYL Cade Primary Care Unavailjos GOODWIN MD, DR SYL Cade Primary Care Unavailjos SOSA MD, DEVENDRA Attending Unavailable DR SYL GOODWIN MD Primary Care Physician Buddy MILLER, Dr. Streeter Primary Care Provider Dr. Syl Owen MD Referring Provider UnavailDr. Oni Vasques MD Attending Provider [phone] Bro HYDRAULIC CHAIR ASSEMBLER-CFozia Attending Provider Gudla, Syl Referring Unavailable Gudla, Syl Primary Care Unavailable GustavodoOni gonzalez Attending Unavailable Gudla, Syl Referring Unavailable Gudla, Syl Primary Care Unavailable Friend, Luis Consulting Unavailable Friend, Luis Attending Unavailable Gudla, Syl Referring Unavailable Gudla, Syl Primary Care Unavailable BaddourOni Attending Unavailable BaddourOni Attending Unavailable Gudla, Syl Referring Unavailable Gudla, Syl Primary Care Unavailable Fozia Crabtree Attending Unavailable Gudla, Syl Referring Unavailable Gudla, Syl Primary Care Unavailable FriendLuis Attending Unavailable Gudla, Syl Primary Care Unavailable GustavodoOni gonzalez Referring Unavailable Baddour, Oni Attending Unavailable Gudla, Syl Referring Unavailable Gudla, Syl Primary Care Unavailable Fozia Crabtree Attending Unavailable Gudla, Syl Primary Care Unavailable BaddoOni gonzalez Attending Unavailable GustavodoOni gonzalez Referring Unavailable Gudla, Syl Primary Care Unavailable Oni Quinteros Attending Unavailable BaddoOni gonzalez Referring Unavailable Gudla, Syl Primary Care Unavailable Yoel Power Attending Unavailable Gudla, Syl Referring Unavailable Gudla, Syl Primary Care Unavailable Friend, Luis Attending Unavailable Gudla, Syl Referring Unavailable Gudla, Syl Primary Care Unavailable Fozia Crabtree Attending Unavailable Allergies Allergy Classification Reported Allergen(s) Allergy Type Date of Onset Reaction(s) Facility (1 source) Sulfonamides (Antibiotic) Drug allergy (disorder) [facility] (3 sources) Sulfonamides (Antibiotic); Translations: [sulfa drugs] Drug Allergy 3 Rash [facility] (6 sources) Sertraline; Translations: [sertraline] Drug Allergy 3 PT UNSURE OF REACTION [facility] (2 sources) Shellfish; Translations: [shellfish] Food allergy [facility] (2 sources) MSG Food allergy [facility] (2 sources) unknown antibiotic (non-codified) Drug allergy [facility] (6 sources) Blue Dye; Translations: [blue dye] Food allergy 5 PT UNSURE OF REACTION [facility] (3 sources) Glutamate Drug Allergy 5 PT UNSURE OF REACTION [facility] (4 sources) Shellfish; Translations: [shellfish derived] Allergy to substance 5 PT UNSURE OF REACTION [facility] (3 sources) Sulfonamides (Antibiotic) Allergy to substance 5 unknown [facility] Comment on above: childhood (1 source) Sulfonamide; Translations: [sulfa drugs] Drug allergy [facility] (1 source) Sertraline Drug Allergy 5 [facility] (1 source) Sulfonamides (Antibiotic) Drug allergy (disorder) 5 [facility] (1 source) monosodium glutamate Drug allergy (disorder) 5 [facility] Medications Current Medications Medication Drug Class(es) Dates Sig (Normalized) Sig (Original) acetaminophen 325 mg oral capsule (12 sources) Start: 08-13-2024 take 1 capsule by mouth every four hours as needed for pain Acetaminophen 325 mg capsule Active 325 mg PO Q4H as needed for fever or pain August 13, 2024 12:00am Start: 12-29-2023 End: 06-20-2024 take 2 tablets by mouth every six hours as needed for fever Acetaminophen 325 mg tablet,chewable Discontinued 650 mg PO EVERY 6 HOURS as needed for fever May 07, 2024 12:24pm June 20, 2024 10:29am Start: 12-01-2022 Tylenol Oral, 0 Refill(s) Start Date: 12/01/22 Status: Ordered Repeat number: 1 Start: 12-01-2022 Tylenol Oral, 0 Refill(s) Start Date: 12/01/22 Status: Ordered take 1 tablet by chemo every eight hours as needed acetaminophen (TYLENOL) 500 mg tablet Take 500 mg by mouth every 8 hours as needed. 0 Suspended Comment on above: Take 500 mg by mouth every 8 hours as needed. benztropine mesylate 0.5 mg oral tablet (7 sources) Anticholinergic, Antihistamine Start: 12-29-2023 benztropine 0.5 mg oral tablet Dose : 0.5 mg = 1 tab(s), Oral, qHS, # 30 tab(s), 0 Refill(s) Start Date: 10/16/24 Status: Ordered Quantity: 30.0 Unit: tab(s) Repeat number: 1 Start: 12-01-2022 benztropine Or al, 0 Refill(s) Start Date: 12/01/22 Status: Ordered Start: 06-30-2022 take 1 tablet by chmeo every eight hours Benztropine Mesylate 1 MG Oral Tablet TAKE 1 TABLET Every 8 hours PRN Quantity: 0 Refills: 0 Ordered: 30-Jun-2022 Butt BRIDGE CONTRACTOR-PANEL MACHINE SETTER, Nellie Start : 30-Jun-2022 Active benztropine (COG ENTIN) 0.5 mg tablet Take by mouth twice daily. 0 Suspended Comment on above: Take by mouth twice daily. cetirizine hydrochloride 10 mg oral tablet (1 source) Histamine-1 Receptor Antagonist Start: 10-16-2024 Zyrtec 10 mg oral tablet Dose : 10 mg = 1 tab(s), Oral, qDay, # 30 tab(s), 0 Refill(s) Start Date: 10/16/24 Status: Ordered Quantity: 30.0 Unit: tab(s) Repeat number: 1 docusate sodium 100 mg oral tablet (4 sources) Start: 10-16-2024 docusate sodium 100 mg oral tablet Dose : 100 mg = 1 tab(s), Oral, qDay, PRN as needed for constipation, # 100 tab(s), 0 Refill(s) Start Date: 10/16/24 Status: Ordered Quantity: 100.0 Unit: tab(s) Repeat number: 1 Start: 06-20-2024 take 1 capsule by mo uth twice daily as needed for constipation Docusate Sodium 100 mg capsule Active 100 mg PO TWICE A DAY as needed for constipation June 20, 2024 1:00am donepezil hydrochloride 5 mg oral tablet (7 sources) Start: 03-19-2024 donepezil 5 mg oral tablet Dose : 5 mg = 1 tab(s), Oral, qHS, # 30 tab(s), 0 Refill(s) Start Date: 10/16/24 Status: Ordered Quantity: 30.0 Unit: tab(s) Repeat number: 1 Start: 12-29-2023 End: 06-20-2024 take 2.5 mg by mouth once daily Donepezil 5 mg tablet,disintegrating Discontinued 2.5 mg PO DAILY December 29, 2023 12:00am June 20, 2024 10:30am elppa CoQ10 (1 source) Start: 12-01-2022 famotidine 40 mg oral tablet (3 sources) Histamine-2 Receptor Antagonist Start: 06-20-2024 take 1 tablet by mouth at bedtime Famotidine 40 mg tablet Active 40 mg PO AT BEDTIME 90 June 20, 2024 1:00am lamoTRIgine 200 mg oral tablet (7 sources) Mood Stabilizer, Anti-epileptic Agent Start: 12-29-2023 lamoTRIgine 200 mg oral tablet Dose : 200 mg = 1 tab(s), Oral, BID, # 180 tab(s), 0 Refill(s) Start Date: 10/16/24 Status: Ordered Quantity: 180.0 Unit: tab(s) Repeat number: 1 Start: 12-01-2022 lamoTRIgine 25 mg oral tablet Dose : 25 mg = 1 tab(s), Oral, BID, # 180 tab(s), 0 Refill(s) Start Date: 12/01/22 Status: Ordered Start: 06-30-2022 take 1 tablet by chemo twice daily LaMICtal 200 MG Oral Tablet TAKE 1 TABLET TWICE DAILY. Quantity: 0 Refills: 0 Ordered: 30-Jun-2022 Butt BRIDGE CONTRACTOR-PANEL MACHINE SETTER, Nellie Start : 30-Jun-2022 Active Comment on above: Take 200 mg by mouth twice daily. melatonin 3 mg oral tablet (4 sources) Start: 10-16-2024 Melatonin 3 mg oral tablet Dose : 3 mg = 1 tab(s), Oral, qHS, PRN for insomnia, # 90 tab(s), 0 Refill(s) Start Date: 10/16/24 Status: Ordered Quantity: 90.0 Unit: tab(s) Repeat number: 1 Start: 01-22-2025 take 1 capsule by mo [facility] at bedtime Melatonin 3 mg capsule Active 3 mg PO BEDTIME June 20, 2024 1:00am mirtazapine 15 mg oral tablet (4 sources) Start: 06-20-2024 mirtazapine 15 mg oral tablet Dose : 15 mg = 1 tab(s), Oral, qHS, # 30 tab(s), 0 Refill(s) Start Date: 10/16/24 Status: Ordered Quantity: 30.0 Unit: tab(s) Repeat number: 1 omeprazole 20 mg delayed release oral capsule (10 sources) Proton Pump Inhibitor Start: 10-16-2024 omeprazole 20 mg ora l delayed release capsule Dose : 20 mg = 1 cap(s), Oral, qDay, # 30 cap(s), 0 Refill(s) Start Date: 10/16/24 Status: Ordered Quantity: 30.0 Unit: cap(s) Repeat number: 1 Start: 08-14-2024 End: 09-13-2024 take 1 capsule by mouth twice daily Omeprazole 20 mg capsule,delayed release(DR/EC) Discontinued 20 mg PO TWICE A DAY August 14, 2024 7:45am September 13, 2024 9:09am Start: 06-20-2024 End: 08-14-2024 take 1 capsule by mouth once daily Omeprazole 20 mg capsule,delayed release(DR/EC) Discontinued 20 mg PO daily June 20, 2024 1:00am August 14, 2024 7:46am 24 hr paliperidone 9 mg extended release oral tablet (4 sources) Atypical Antipsychotic Start: 10-16-2024 paliper idone 9 mg oral tablet, extended release Dose : 9 mg = 1 tab(s), Oral, qAM, # 30 tab(s), 0 Refill(s) Start Date: 10/16/24 Status: Ordered Quantity: 30.0 Unit: tab(s) Repeat number: 1 Start: 06-20-2024 [facility] Paliperidone 6 mg tablet extended release 24hr Active 6 mg PO EVERY MORNING June 20, 2024 1:00am polyethylene glycol 3350 31271 mg powder for oral solution (3 sources) Osmotic Laxative Start: 06-20-2024 take 4 g by mouth once daily Polyethylene Glycol 3350 17 gram/dose powder Active 4 g PO daily June 20, 2024 1:00am Potassium Chloride (4 sources) Start: 10-16-2024 Potassium Chlo ride (Aev-Taue-Del M20) 20 mEq oral tablet, extended release Dose : 20 mEq = 1 tab(s), Oral, BID, # 180 tab(s), 0 Refill(s) Start Date: 10/16/24 Status: Ordered Quantity: 180.0 Unit: tab(s) Repeat number: 1 Start: 06-20-2024 take 1 tablet by [facility] once daily Potassium Chloride 20 mEq tablet extended release Active 20 meq PO daily June 20, 2024 1:00am Probiotic (1 source) Start: 12-01-2022 Probiotic 0 Re fill(s) Start Date: 12/01/22 Status: Ordered Vitamin D3 (2 sources) Start: 12-01-2022 Vitamin D3 Dos e : 10 mcg = 1 tab(s), Oral, Daily, # 30 tab(s), 0 Refill(s) Start Date: 12/01/22 Status: Ordered Quantity: 30.0 Unit: tab(s) Repeat number: 1 Start: 12-01-2022 Vitamin D3 Dos e : 10 mcg = 1 tab(s), Oral, Daily, # 30 tab(s), 0 Refill(s) Start Date: 12/01/22 Status: Ordered Completed/Discontinued Medications Medication Drug Class(es) Dates Sig (Normalized) Sig (Original) acetaminophen 250 mg / aspirin 250 mg / caffeine 65 mg oral tablet (8 sources) Platelet Aggregation Inhibitor, Nonsteroidal Anti-inflammatory Drug, Central Nervous System Stimulant, Methylxanthine Start: 05-07-2024 End: 06-20-2024 Aspirin-Acetaminop hen-Caffeine (Excedrin Migraine) 250-250-65 mg tablet Discontinued 2 {tbl} PO .QD as needed for pain May 07, 2024 12:26pm June 20, 2024 10:29am Start: 12-29-2023 End: 05-07-2024 Yxlrrxd-Typfzkjxjygqg-Wzwrtv ne (Excedrin Migraine) 250-250-65 mg tablet Discontinued 2 {tbl} PO ONCE as needed for pain December 29, 2023 12:00am May 07, 2024 12:29pm Start: 12-01-2022 take 1 tablet by [facility] every six hours Excedrin Extra Strength oral tab (250/25 0/65) Dose = 2 tab(s), Oral, q6hr, 0 Refill(s) Start Date: 12/01/22 Status: Ordered Repeat number: 1 acetaminophen 500 mg / caffeine 65 mg oral tablet (1 source) Central Nervous System Stimulant, Methylxanthine take 2 tablets by mouth once acetaminophen-caffeine (EXCEDRIN TENSION HEADACHE) 500-65 mg tablet Take 2 tablets by mouth one time only. 0 Suspended Comment on above: Take 2 tablets by mo [facility] one time only. atorvastatin 20 mg oral tablet (4 sources) HMG-CoA Reductase Inhibitor Start: 2023 End: 2024 take 1 tablet by mouth at bedtime Atorvastatin 20 mg tablet Discontinued 20 mg PO AT BEDTIME December 29, 2023 12:00am June 20, 2024 10:29am Start: 12-01-2022 atorvastatin O ral, qDay, 0 Refill(s) Start Date: 12/01/22 Status: Ordered Bacillus Coagulans (Probiotic (B. Coagulans)) 2.5 billion cell tablet,chewable (3 sources) Start: 12-29-2023 End: 06-20-2024 take 2.5 tablets by mouth once daily Bacillus Coagulans (Probiotic (B. Coagulans)) 2.5 billion cell tablet,chewable Discontinued NMA PO DAILY December 29, 2023 12:00am June 20, 2024 10:29am bisacodyl 5 mg delayed release oral tablet (9 sources) Stimulant Laxative Start: 12-29-2023 End: 06-20-2024 Bisacodyl (Dulcolax (Bisacodyl)) 10 mg suppository Discontinued 10 mg RC DAILY as needed for constipation December 29, 2023 12:00am June 20, 2024 10:29am Start: 12-29-2023 End: 06-20-2024 take 2 tablets by mouth once as needed for constipation Bisacodyl 5 mg tablet,delayed release (DR/EC) Discontinued 10 mg PO ONCE as needed for constipation May 07, 2024 12:25pm June 20, 2024 10:30am calcium-vitamin D3-magnesium 200 mg calcium- 1.25 mcg cap (1 source) take 1 capsule by mouth once daily calcium-vitamin D3-magnesium 200 mg calcium- 1.25 mcg cap Take 1.25 mg by mouth once daily. 0 Suspended Comment on above: Take 1.25 mg by mout h once daily. cholecalciferol 1.25 mg oral capsule (3 sources) Vitamin D Start: 05-07-20 End: 06-20-19 25 take 1 capsule by mouth every week Cholecalciferol (Vitamin D3) 1,250 mcg (50,000 unit) capsule Discontinued 1250 ug PO EVERY WEEK May 07, 2024 1:00am June 20, 2024 10:30am FLUoxetine 60 mg oral tablet (7 sources) Serotonin Reuptake Inhibitor Start: 12-29-19 End: 06-20-19 take 1 tablet by mouth once daily in the morning Fluoxetine 60 mg tablet Discontinued 60 mg PO EVERY MORNING December 29, 2023 12:00am June 20, 2024 10:30am Start: 12-01-2022 FLUoxetine Ora l, 0 Refill(s) Start Date: 12/01/22 Status: Ordered Start: 06-30-2022 FLUoxetine HCl - 40 MG Oral Capsule 60 mg a day Quantity: 0 Refills: 0 Ordered: 30-Jun-2022 Butt BRIDGE CONTRACTOR-PANEL MACHINE SETTER, Nellie Start : 30-Jun-2022 Active take 1 capsule by mo uth once daily FLUoxetine (PROZAC) 20 mg capsule Take 20 mg by mouth once daily. 0 Suspended take 1 capsule by mo uth once daily FLUoxetine (PROZAC) 40 mg capsule Take 40 mg by mouth once daily. 0 Suspended Comment on above: Take 20 mg by mouth once daily. Take 40 mg by mouth once daily. L.acidophilus-L.rham nosus (PROBIOTIC) 15 billion cell capsule (1 source) take 1 capsule by mouth once daily L.acidophilus-L.rha mnosus (PROBIOTIC) 15 billion cell capsule Take 1 capsule by mouth once daily. 0 Suspended Comment on above: Take 1 capsule by mo uth once daily. Magnesium Hydroxide (3 sources) Start: 024 End: 025 take 1 mL by mouth once daily as needed for constipation Magnesium Hydroxide (Milk Of Magnesia) 400 mg/5 mL suspension Discontinued 30 mL PO DAILY as needed for constipation December 29, 2023 12:00am June 20, 2024 10:30am mineral oil 1000 mg/ml enema (3 sources) Start: End: Mineral Oil (Fleet Mineral Oil) enema Discontinued 118 mL RC DAILY as needed December 29, 2023 12:00am June 20, 2024 10:30am discard any unused portion perphenazine 4 mg oral tablet (12 sources) Phenothiazine Start: End: take 1 tablet by mouth once daily Perphenazine 4 mg tablet Discontinued PO DAILY March 19, 2024 12:00am June 20, 2024 10:30am Start: 12-29-2023 End: 06-20-2024 take 1 tablet by mouth twice daily Perphenazine 8 mg tablet Discontinued 8 mg PO TWICE A DAY May 07, 2024 12:28pm June 20, 2024 10:30am Start: 12-01-2022 perphenazine O ral, BID, 0 Refill(s) Start Date: 12/01/22 Status: Ordered Start: 06-30-2022 take 1 tablet by chemo th three times daily Perphenazine 4 MG Oral Tablet TAKE 1 TABLET 3 TIMES DAILY. Quantity: 0 Refills: 0 Ordered: 30-Jun-2022 Butt BRIDGE CONTRACTOR-PANEL MACHINE SETTER, Nellie Start : 30-Jun-2022 Active take 1 tablet by chemo th twice daily perphenazine 8 mg tablet Take 8 mg by mouth twice daily. 0 Suspended Comment on above: Take 8 mg by mouth t wice daily. Promethazine 25 mg/mL syringe (3 sources) Start: 12-29-19 End: 06-20-19 25 inject 25 mg by intramuscular injection every eight hours as needed for nausea and vomiting Promethazine 25 mg/mL syringe Discontinued 25 mg IM EVERY 8 HOURS NEEDED as needed for nausea and vomiting December 29, 2023 12:00am June 20, 2024 10:30am rosuvastatin 10 mg oral capsule (1 source) HMG-CoA Reductase Inhibitor take 10 mg by mouth once daily rosuvastatin 10 mg cpSP Take 10 mg by mouth once daily. 0 Suspended Comment on above: Take 10 mg by mouth once daily. traZODone hydrochloride 50 mg oral tablet (9 sources) Serotonin Reuptake Inhibitor Start: 05-07-20 End: 06-20-19 take 1 tablet by mouth at bedtime Trazodone 50 mg tablet Discontinued 50 mg PO AT BEDTIME May 07, 2024 12:23pm June 20, 2024 10:30am Start: 12-29-2023 End: 05-07-2024 Trazodone 50 mg tablet Disco ntinued 25 mg PO AT BEDTIME December 29, 2023 12:00am May 07, 2024 12:29pm Start: 12-01-2022 traZODone Oral , 0 Refill(s) Start Date: 12/01/22 Status: Ordered Start: 06-30-2022 take 1 tablet by chemo th at bedtime for sleep traZODone HCl - 50 MG Oral Tablet take 1 tablet by mouth at bedtime if needed for sleep Quantity: 30 Refills: 5 Ordered: 30-Jun-2022 Butt BRIDGE CONTRACTOR-PANEL MACHINE SETTERManea Start : 30-Jun-2022 Active Comment on above: Take 50 mg by mouth daily at bedtime. ubidecarenone 100 mg oral capsule (3 sources) Start: 12-29-2023 End: 06-20-2024 Coenzyme Q10 (Coq-10) 100 mg capsule Discontinued 100 mg PO DAILY December 29, 2023 12:00am June 20, 2024 10:30am ubidecarenone/vitamin E mixed (COQ10 SG 100 ORAL) (1 source) ubidecarenone/vi tamin E mixed (COQ10 SG 100 ORAL) Take by mouth. 0 Suspended Comment on above: Take by mouth. Problems Active Problems Problem Classification Problem Date Documented Date Episodic/Chronic Anxiety disorders (1 source) Anxiety; Translations: [Anxiety state, unspecified] Chronic Biliary tract disease (1 source) Calculus of gallbladder without cholecystitis without obstruction; Translations: [Calculus of gallbladder without cholecystitis without obstruction] Onset: 11-26-2022 Episodic Blindness and vision defects (2 sources) Temporary visual disturbance; Translations: [Unspecified visual disturbance] Onset: 11-26-2022 Episodic Delirium, dementia, and amnestic and other cognitive disorders (4 sources) Dementia; Translations: [Unspecified dementia without behavioral disturbance] Onset: 01-24-2024 01-22-2024 Chronic Epilepsy; convulsions (8 sources) Neurological finding; Translations: [Unspecified convulsions] Onset: 11-26-2022 11-26-2022 Episodic Esophageal disorders (11 sources) Gastroesophageal reflux disease; Translations: [Gastro-esophageal reflux disease without esophagitis] Onset: 06-20-2024 06-20-2024 Chronic Esophageal disorders (2 sources) Esophagitis; Translations: [Esophagitis] 09-13-2024 Episodic Esophageal disorders (1 source) Esophageal disorders; Translations: [Gastro-esophageal reflux disease with esophagitis, without bleeding] Onset: 09-13-2024 Headache; including migraine (1 source) Migraine; Translations: [Migraine, unspecified, without mention of intractable migraine without mention of status migrainosus] Chronic Immunizations and screening for infectious disease (2 sources) Encounter for screening for human papillomavirus (HPV); Translations: [Encounter for screening for human papillomavirus (HPV)] Onset: 10-16-2024 Episodic Other and unspecified benign neoplasm (8 sources) History of polyp of colon; Translations: [History of colonic polyps] 06-20-2024 Episodic Other ear and sense organ disorders (1 source) Impacted cerumen; Translations: [Impacted cerumen] Episodic Other screening for suspected conditions (not mental disorders or infectious disease) (4 sources) Encounter for screening mammogram for malignant neoplasm of breast; Translations: [Encounter for screening for malignant neoplasm of cervix] Onset: 08-21-2024 Episodic Residual codes; unclassified (1 source) Insomnia; Translations: [Insomnia, unspecified] Episodic Residual codes; unclassified (6 sources) Hallucinations; Translations: [Hallucinations, unspecified] 12-29-2023 Episodic Residual codes; unclassified (6 sources) Altered mental status; Translations: [Altered mental status, unspecified] 05-07-2024 Episodic Schizophrenia and other psychotic disorders (2 sources) Schizophrenia; Translations: [Unspecified schizophrenia, unspecified] Onset: 04-09-2024 Chronic Unclassified (1 source) Transaminitis; Translations: [Transaminitis] Onset: 11-29-2022 Unclassified (1 source) Esophagitis, unspecified without bleeding; Translations: [Esophagitis, unspecified without bleeding] Onset: 09-13-2024 Unclassified (2 sources) Personal history of colon polyps, unspecified; Translations: [Personal history of colon polyps, unspecified] Onset: 06-20-2024 Past or Other Problems Problem Classification Problem Date Documented Da te Episodic/Chronic Residual codes; unclassified (1 source) Hallucinations, unspecified; Translations: [Hallucinations, unspecified] Onset: 02-09-2024 Episodic Results Test Name Value Interpretation Reference Range Facility [facility] Cytology Reporton 2024 [facility] Cytology Report . Pathology Reports Accession: Collected Date/Time: Received Date/Time: Pathologist: [id number] 10/16/2024 11:02 EDT 10/16/2024 18:00 EDT [facility] Cytology Report SPECIMEN: Specimen Description: Liquid Prep w/ HPV Specimen: Cervical/Endocervical Screening or Diagnostic: Screening RELEVANT HISTORY: LMP: postmenopausal SPECIMEN ADEQUACY: SATISFACTORY FOR EVALUATION Endocervical/Transformation al zone component presence can not be determined due to marked atrophy INTERPRETATION/RESULTS: NEGATIVE FOR INTRAEPITHELIAL LESION OR MALIGNANCY OTHER NON-NEOPLASTIC FINDINGS: Atrophy HIGH RISK HPV TESTING: Event Code Result HPV Interp See Interp HPVN f HPV Interp Comment: Clinical Interpretation: High Risk HPV Typing: NEGATIVE HPV types 16, 18, 31, 33, 35, 39, 45, 51, 52, 56, 58, 59, 66 and 68 DNA were undetectable or below the pre-set threshold. The tracee High-Risk HPV DNA Test is not intended for use as a screening device for Pap normal women under age 30 and is not intended to substitute for regular Pap screening. The tracee High-Risk HPV DNA Test is designed to augment existing methods for the detection of cervical disease and should be used in conjunction with clinical information derived from other diagnostic and screening tests, physical examinations and full medical history in accordance with appropriate patient management procedures. NOTE: A negative result does not preclude the presence of HPV infection because results depend on adequate specimen collection, absence of inhibitors and sufficient DNA to be detected. As of: 10/25/24 11:41 EDT Pathology Reports Accession: Collected Date/Time: Received Date/Time: Pathologist: [id number] 10/16/2024 11:02 EDT 10/16/2024 18:00 EDT COMMENT: This Pap Test was analyzed by the [employer]. Processing failed. Manual screening was indicated. Verified by Pathology report verified by [facility] Screened by: LAF Electronically signed by Lou Anderson Sign-Out Date: 10/25/2024 11:42 Performing Lab: [facility], [address] [place] [address] Pathology Dept Disclaimer The Pap test is a screening test for cervical cancer. As evidenced by published data, it is subject to both inherent false negative and false positive results. Your patient's results should be interpreted in context with pertinent clinical history including gynecological examination. Normal [facility] HPVon 10-18-2024 HPV Interp See Interp HPVN Normal See Interp HPVN [facility] Comment on above: Order Comment: Order placed by AP_HPV_ORDER rule from [id number] Result Comment: Clinical Interpretation: High Risk HPV Typing: NEGATIVE HPV types 16, 18, 31, 33, 35, 39, 45, 51, 52, 56, 58, 59, 66 and 68 DNA were undetectable or below the pre-set threshold. The tracee High-Risk HPV DNA Test is not intended for use as a screening device for Pap normal women under age 30 and is not intended to substitute for regular Pap screening. The tracee High-Risk HPV DNA Test is designed to augment existing methods for the detection of cervical disease and should be used in conjunction with clinical information derived from other diagnostic and screening tests, physical examinations and full medical history in accordance with appropriate patient management procedures. NOTE: A negative result does not preclude the presence of HPV infection because results depend on adequate specimen collection, absence of inhibitors and sufficient DNA to be detected. 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 Fozia A nthony Age/Sex: 59/F Location: [facility] Status: Signed Intake Vital Signs 08/14/24 06:07 09/13/24 09:15 Height 5 ft 6 in 5 ft 6 in Weight: 186 lb 6 oz BMI 30.0 BP 128/83 H Respiration 16 Pulse 91 Pulse Oximetry (%) 98 Oxygen Delivery Method room air Intake Visit Reasons: Test Result Chief Complaint: follow-up Rental Agent Required: No Is patient in pain?: No Allergies blue dye Allergy (Verified 09/13/24 09:10) PT UNSURE OF REACTION monosodium glutamate (msg) Allergy (Verified 09/13/24 09:10) PT UNSURE OF REACTION sertraline (From Zoloft) Allergy (Verified 09/13/24 09:10) PT UNSURE OF REACTION shellfish derived Allergy (Verified 09/13/24 09:10) PT UNSURE OF REACTION Sulfa (Sulfonamide Antibiotics) Allergy (Verified 09/13/24 09:10) unknown Medications ???Medication ???Instructions ???Recorded ???Confirmed ???Type benztropine 0.5 mg tablet 0.5 mg PO BID 12/29/23 09/13/24 Hi story lamotrigine 200 mg tablet 200 mg PO BID 12/29/23 09/13/24 Hi story donepezil 5 mg tablet (Aricept) 5 mg PO QHS 03/19/24 09/13/24 Hist ory docusate sodium 100 mg capsule 100 mg PO BID PRN constipation 09/13/24 History famotidine 40 mg tablet 40 mg PO QHS #90 tabs 06/20/24 Rx melatonin 3 mg capsule 3 mg PO HS 06/20/24 09/13/24 Histo ry mirtazapine 15 mg tablet 15 mg PO QHS 06/20/24 09/13/24 His tory paliperidone 6 mg tablet,extended 6 mg PO QAM 06/20/24 09/13/24 His tory release 24 hr polyethylene glycol 3350 17 4 g PO QDAY 06/20/24 09/13/24 Hist ory gram/dose oral powder potassium chloride 20 mEq 20 meq PO QDAY 06/20/24 09/13/24 H istory tablet,extended release acetaminophen 325 mg capsule 325 mg PO Q4H PRN fever or pain 09/13/24 History PFSH Medical History Gastric reflux Migraine headache Depression High cholesterol Schizophrenia Bipolar disorder Anxiety Non-smoker Elevated liver enzymes Calculus of gallbladder without cholecystitis without obstruction Transaminitis Social History Smoking Status: Never smoker HPI HPI Chief Complaint: follow-up Details: VIDYA FAN, is a 59 F who presents to the office today for INITIAL Consult 06/20/2024 58y/o female presents for consultation for personal history of SSP in 2017. PMH is significant for hyperlipidemia, bipolar disorder, depression, obsessive-compulsive disorder, and schizoaffective disorder. She is being followed by Dr. Quinteros and was last seen 05/07/2024 for follow-up of hallucination, seizures and altered mental state. CBC and transaminases were unremarkable 03/18/2024. She complains of increased in GERD keeping her up at HS. I have added pepcid at HS in addition to Omeprazole she is taking every morning. She will schedule colonoscopy and EGD. EGD 08/14/2024 neg. for Angulo's - LA Grade C reflux esophagitis with no bleeding. Biopsied. - Moderate Schatzki ring. Dilated. - Medium-sized hiatal hernia. - No gross lesions in the first portion of the duodenum. Recommendation: - Discharge patient to home. - Resume previous diet. - Continue present medications. - Await pathology results. -Omeprazole 20 mg p.o. twice daily COLON 08/14/2024 - TA's - Diverticulosis in the recto-sigmoid colon and in the sigmoid colon. - Two 6 mm polyps in the transverse colon, removed with a jumbo cold forceps. Resected and retrieved. - One 11 mm polyp at the hepatic flexure, removed with a hot snare. Resected and retrieved. Recommendation: - Repeat colonoscopy in 3 years for surveillance. - denies any dysphagia - she has been limiting PO intake later in the evening - has been sleeping with HOB elevated - she has been talking with PT and has plans to start diaphragmatic breathing - denies any N/V - denies any abdominal pain - denies any weight loss - she is now exercising 5 days a week - reports she stopped Omeprazole with in a week of starting - states she is only taking famotidine at HS - symptoms have resolved ROS Const Constitutional: No fatigue, fever(s) or weight change ENT ENT: No difficulty swallowing Gastro GI: Positive for vomiting; No abdominal pain, belching, bloating, change in bowel habits, change in stool character, coffee ground emesis, constipation, cramping, diarrhea, heartburn, difficulty swallowing, feeling full early, excessive flatus, incontinent of stools, Vomiting blood/hematemesis, Blood in stool, loose stools, Black,t (more content not included)... Normal [facility] GHULAM w/ Reflex Mult Confirmon 08-22-2024 ANTI-DNA (DS)AB TNP Normal [facility] Comment on above: Performed By: #### L 101.9900, L100.0500, L500.4050, L3100.5450, L3300.8000, L501.9520, L3300.4400, L503.5510, L501.6710, L3300.0960, L501.5200, L506.0200 #### [facility] [address] [place], [address] ANTISCLERODERM TNP Normal [facility] Comment on above: Performed By: #### L 101.9900, L100.0500, L500.4050, L3100.5450, L3300.8000, L501.9520, L3300.4400, L503.5510, L501.6710, L3300.0960, L501.5200, L506.0200 #### [facility] [address] [place], [address] Lamotrigine (Lamictal) Level on 08-21-2024 LAMOTRIGINE 12.2 ug/mL Normal 2.0-20.0 [facility] Comment on above: Order Comment: Test( s) 714961-Xwn. B1, Whole Bloodwas developed and its performance characteristicsdetermined by [employer]. It has not been cleared or approvedby the Food and Drug Administration. Result Comment: Dete ction Limit = 1.0 Performed at: [facility] [employer] [place] [address] [place], [place] [id number] Radiosonde Operator: Pita Foote MD, Phone: [phone] Performed By: #### L 500.4050, L100.0100, L505.5000, L501.9100 #### [facility] [address] [place], [address] Vitamin B1, Thiamineon 08-21 VIT B1 THIAMINE 127.9 nmol/L Normal 66.5-200.0 [facility] Comment on above: Order Comment: Test( s) 488597-Vmg. B1, Whole Bloodwas developed and its performance characteristicsdetermined by [employer]. It has not been cleared or approvedby the Food and Drug Administration. Performed By: #### L 500.4050, L100.0100, L505.5000, L501.9100 #### [facility] [address] [place], [address] Vitamin D 1,25-Dihydroxyon 0 08-21-2024 VIT D 1,25 DIHY 45.2 pg/mL Normal 24.8-81.5 [facility] Comment on above: Performed By: #### L 500.4050, L100.0100, L505.5000, L501.9100 #### [facility] [address] [place], [address] 1,25-dihydroxyvitamin D3 [Ma ss/Vol]Ordered By: Oni Quinteros on 08-17-2024 Vitamin D 1,25-Dihydroxy 45.2 pg/mL 24.8-81.5 [facility] GHULAM serumOrdered By: Oni Quinteros on 08-17-2024 Anti-Nuclear Antibody Screen Negative Negative [facility] Comment on above: Performed at: - [employer] [address] [place], [place] [id number] Director: Pita Foote MD, Phone: [phone] at: [facility] [employer] [id number] Director: Isaias Lozano PhD, Phone: [phone] Ammoniaon 08-17-2024 Ammonia (P) [Moles/Vol] 15.8 umol/L Normal 11-51 [facility] Comment on above: Performed By: #### L 101.9900, L100.0500, L500.4050, L3100.5450, L3300.8000, L501.9520, L3300.4400, L503.5510, L501.6710, L3300.0960, L501.5200, L506.0200 #### [facility] [address] [place], [address] Anion gap in Serum or Plasma Ordered By: Oni Quinteros on 08-17-2024 Anion gap [Moles/Vol] 11 mmol/L 5-15 [facility] BUN/creatinine ratioOrdered By: Oni Quinteros on 08-17-2024 Urea nitrogen/Creatinine [Mass ratio] 14.7 mg/mg 10- [facility] Bilirubin, totalOrdered By: Oni Quinteros on 08-17-2024 Bilirubin [Mass/Vol] 0.46 mg/dL 0.00-1.30 [facility] CBC-Complete Blood Cnt No Di ffon 08-17-2024 Erythrocyte distribution width (RBC) [Ratio] 13.1 % Normal 11.6-14.6 [facility] Comment on above: Performed By: #### L 101.9900, L100.0500, L500.4050, L3100.5450, L3300.8000, L501.9520, L3300.4400, L503.5510, L501.6710, L3300.0960, L501.5200, L506.0200 #### [facility] [address] [place], [address] Hematocrit (Bld) [Volume fraction] 37.1 % Normal 37-47 [facility] Comment on above: Performed By: #### L 101.9900, L100.0500, L500.4050, L3100.5450, L3300.8000, L501.9520, L3300.4400, L503.5510, L501.6710, L3300.0960, L501.5200, L506.0200 #### [facility] [address] [facility] [place], [address] Hemoglobin (Bld) [Mass/Vol] 12.3 g/dL Normal 12.0-15.0 [facility] Comment on above: Performed By: #### L 101.9900, L100.0500, L500.4050, L3100.5450, L3300.8000, L501.9520, L3300.4400, L503.5510, L501.6710, L3300.0960, L501.5200, L506.0200 #### [facility] [address] [facility] [place], [address] MCH (RBC) [Entitic mass] 28.1 pg Normal 27.0-32.0 [facility] Comment on above: Performed By: #### L 101.9900, L100.0500, L500.4050, L3100.5450, L3300.8000, L501.9520, L3300.4400, L503.5510, L501.6710, L3300.0960, L501.5200, L506.0200 #### [facility] [address] [facility] [place], [address] MCHC (RBC) [Mass/Vol] 33.2 g/dL Normal 32-36 [facility] Comment on above: Performed By: #### L 101.9900, L100.0500, L500.4050, L3100.5450, L3300.8000, L501.9520, L3300.4400, L503.5510, L501.6710, L3300.0960, L501.5200, L506.0200 #### [facility] [address] [place], [address] MCV (RBC) [Entitic vol] 84.9 fL Normal 81-99 [facility] Comment on above: Performed By: #### L 101.9900, L100.0500, L500.4050, L3100.5450, L3300.8000, L501.9520, L3300.4400, L503.5510, L501.6710, L3300.0960, L501.5200, L506.0200 #### [facility] [address] [place], [address] Platelet mean volume (Bld) [Entitic vol] 8.5 fL Normal 6.2-12.0 [facility] Comment on above: Performed By: #### L 101.9900, L100.0500, L500.4050, L3100.5450, L3300.8000, L501.9520, L3300.4400, L503.5510, L501.6710, L3300.0960, L501.5200, L506.0200 #### [facility] [address] [place], [address] Platelets (Bld) [#/Vol] 290 10*3/uL Normal 150-450 [facility] Comment on above: Performed By: #### L 101.9900, L100.0500, L500.4050, L3100.5450, L3300.8000, L501.9520, L3300.4400, L503.5510, L501.6710, L3300.0960, L501.5200, L506.0200 #### [facility] [address] [place], [address] RBC (Bld) [#/Vol] 4.37 10*6/uL Normal 4.2-5.4 [facility] Comment on above: Performed By: #### L 101.9900, L100.0500, L500.4050, L3100.5450, L3300.8000, L501.9520, L3300.4400, L503.5510, L501.6710, L3300.0960, L501.5200, L506.0200 #### [facility] [address] [place], [address] RDW SD 40.5 fl Normal 35.1-43.9 [facility] Comment on above: Performed By: #### L 101.9900, L100.0500, L500.4050, L3100.5450, L3300.8000, L501.9520, L3300.4400, L503.5510, L501.6710, L3300.0960, L501.5200, L506.0200 #### [facility] [address] [place], [address] WBC (Bld) [#/Vol] 8.0 10*3/uL Normal 4.4-11.0 [facility] Comment on above: Performed By: #### L 101.9900, L100.0500, L500.4050, L3100.5450, L3300.8000, L501.9520, L3300.4400, L503.5510, L501.6710, L3300.0960, L501.5200, L506.0200 #### [facility] [address] [place], [address] CRPon 08-17-2024 C-REACTIVE PROT 10.10 mg/L High 0.0-3.0 [facility] Comment on above: Performed By: #### L 500.4050, L100.0100, L505.5000, L501.9100 #### [facility] [address] [place], [address] CRP [Mass/Vol]Ordered By: Ra ina Quinteros on 08-17-2024 C-Reactive Protein Extended Range 10.10 mg/L High 0.0-3.0 [facility] Carbon dioxide, total [Moles /volume] in Central venous bloodOrdered By: Oni Quinteros on 08-17-2024 CO2 [Moles/Vol] 23.2 mmol/L 21.0-32.0 [facility] Centromere B antibody assayO rdered By: Oni Quinteros on 08-17-2024 Centromere B Antibody TNP [facility] Comment on above: Test not performed Chloride assayOrdered By: Ra ina Quinteros on 08-17-2024 Chloride [Moles/Vol] 104 mmol/L 98-108 [facility] Chromatin antibody assayOrde red By: Oni Quinteros on 08-17-2024 Antichromatin Antibodies TNP [facility] Comment on above: Test not performed Comprehensive Metabolic Prof ilon 08-17-2024 Albumin [Mass/Vol] 3.9 g/dL Normal 3.5-5.0 [facility] Comment on above: Performed By: #### L 101.9900, L100.0500, L500.4050, L3100.5450, L3300.8000, L501.9520, L3300.4400, L503.5510, L501.6710, L3300.0960, L501.5200, L506.0200 #### [facility] [address] [place], [place], [id number] Albumin/Globulin [Mass ratio] 1.2 {ratio} Normal 0.9-2.4 [facility] Comment on above: Performed By: #### L 101.9900, L100.0500, L500.4050, L3100.5450, L3300.8000, L501.9520, L3300.4400, L503.5510, L501.6710, L3300.0960, L501.5200, L506.0200 #### [facility] [address] [place], [place], [id number] ALK PHOS 114 U/L High 35-104 [facility] Comment on above: Performed By: #### L 101.9900, L100.0500, L500.4050, L3100.5450, L3300.8000, L501.9520, L3300.4400, L503.5510, L501.6710, L3300.0960, L501.5200, L506.0200 #### [facility] [address] [place], [place], [id number] ALT [Catalytic activity/Vol] 13 U/L Normal <=34 [facility] Comment on above: Performed By: #### L 101.9900, L100.0500, L500.4050, L3100.5450, L3300.8000, L501.9520, L3300.4400, L503.5510, L501.6710, L3300.0960, L501.5200, L506.0200 #### [facility] [address] [place], [address] AST [Catalytic activity/Vol] 17 U/L Normal <=31 [facility] Comment on above: Performed By: #### L 101.9900, L100.0500, L500.4050, L3100.5450, L3300.8000, L501.9520, L3300.4400, L503.5510, L501.6710, L3300.0960, L501.5200, L506.0200 #### [facility] [address] [place], [place], [id number] Bilirubin [Mass/Vol] 0.46 mg/dL Normal 0.00-1.30 [facility] Comment on above: Performed By: #### L 101.9900, L100.0500, L500.4050, L3100.5450, L3300.8000, L501.9520, L3300.4400, L503.5510, L501.6710, L3300.0960, L501.5200, L506.0200 #### [facility] [address] [place], [address] BUN/CRE 14.7 RATIO Normal 10-20 [facility] Comment on above: Performed By: #### L 101.9900, L100.0500, L500.4050, L3100.5450, L3300.8000, L501.9520, L3300.4400, L503.5510, L501.6710, L3300.0960, L501.5200, L506.0200 #### [facility] [address] [place], [address] Calcium [Mass/Vol] 9.1 mg/dL Normal 7.6-11.0 [facility] Comment on above: Performed By: #### L 101.9900, L100.0500, L500.4050, L3100.5450, L3300.8000, L501.9520, L3300.4400, L503.5510, L501.6710, L3300.0960, L501.5200, L506.0200 #### [facility] [address] [place], [address] Chloride [Moles/Vol] 104 mmol/L Normal 98-108 [facility] Comment on above: Performed By: #### L 101.9900, L100.0500, L500.4050, L3100.5450, L3300.8000, L501.9520, L3300.4400, L503.5510, L501.6710, L3300.0960, L501.5200, L506.0200 #### [facility] [address] [place], [address] CO2 [Moles/Vol] 23.2 mmol/L Normal 21.0-32.0 [facility] Comment on above: Performed By: #### L 101.9900, L100.0500, L500.4050, L3100.5450, L3300.8000, L501.9520, L3300.4400, L503.5510, L501.6710, L3300.0960, L501.5200, L506.0200 #### [facility] [address] [place], [address] Creatinine [Mass/Vol] 0.71 mg/dL Normal 0.70-1.20 [facility] Comment on above: Performed By: #### L 101.9900, L100.0500, L500.4050, L3100.5450, L3300.8000, L501.9520, L3300.4400, L503.5510, L501.6710, L3300.0960, L501.5200, L506.0200 #### [facility] [address] [place], [place], [id number] (331) GAP 11 Normal 5-15 [facility] Comment on above: Performed By: #### L 101.9900, L100.0500, L500.4050, L3100.5450, L3300.8000, L501.9520, L3300.4400, L503.5510, L501.6710, L3300.0960, L501.5200, L506.0200 #### [facility] [address] [facility] [place], [address] GFR/1.73 sq M.predicted among non-blacks MDRD (S/P/Bld) [Vol rate/Area] 99 mL/min/{1.73_m2} Normal >60 [facility] Comment on above: Result Comment: mL/m in/1.73m2 CKD-EPI Creatinine Equation (2020) Performed By: #### L 101.9900, L100.0500, L500.4050, L3100.5450, L3300.8000, L501.9520, L3300.4400, L503.5510, L501.6710, L3300.0960, L501.5200, L506.0200 #### [facility] [address] [place], [place], [id number] Globulin (S) [Mass/Vol] 3.3 g/dL Normal 2.2-4.2 [facility] Comment on above: Performed By: #### L 101.9900, L100.0500, L500.4050, L3100.5450, L3300.8000, L501.9520, L3300.4400, L503.5510, L501.6710, L3300.0960, L501.5200, L506.0200 #### [facility] [address] [place], [address] Glucose [Mass/Vol] 92 mg/dL Normal 70-99 [facility] Comment on above: Performed By: #### L 101.9900, L100.0500, L500.4050, L3100.5450, L3300.8000, L501.9520, L3300.4400, L503.5510, L501.6710, L3300.0960, L501.5200, L506.0200 #### [facility] [address] [place], [address] Potassium [Moles/Vol] 3.8 mmol/L Normal 3.3-5.1 [facility] Comment on above: Performed By: #### L 101.9900, L100.0500, L500.4050, L3100.5450, L3300.8000, L501.9520, L3300.4400, L503.5510, L501.6710, L3300.0960, L501.5200, L506.0200 #### [facility] [address] [place], [address] Sodium [Moles/Vol] 138 mmol/L Normal 133-145 [facility] Comment on above: Performed By: #### L 101.9900, L100.0500, L500.4050, L3100.5450, L3300.8000, L501.9520, L3300.4400, L503.5510, L501.6710, L3300.0960, L501.5200, L506.0200 #### [facility] [address] [place], [address] T PROT 7.2 g/dL Normal 5.9-8.4 [facility] Comment on above: Performed By: #### L 101.9900, L100.0500, L500.4050, L3100.5450, L3300.8000, L501.9520, L3300.4400, L503.5510, L501.6710, L3300.0960, L501.5200, L506.0200 #### [facility] [address] [place], [address] Urea nitrogen [Mass/Vol] 10 mg/dL Normal 4-19 [facility] Comment on above: Performed By: #### L 101.9900, L100.0500, L500.4050, L3100.5450, L3300.8000, L501.9520, L3300.4400, L503.5510, L501.6710, L3300.0960, L501.5200, L506.0200 #### [facility] [address] [facility] [place], [address] DNA double strand Ab Qn (S)O rdered By: Oni Quinteros on 08-17-2024 Anti-Double Strand DNA Antibody TNP [facility] Comment on above: Test not performed Erythrocyte Sed Rateon 08-17 SED RATE 22 mm/hr Normal 0-30 [facility] Comment on above: Performed By: #### L 101.9900, L100.0500, L500.4050, L3100.5450, L3300.8000, L501.9520, L3300.4400, L503.5510, L501.6710, L3300.0960, L501.5200, L506.0200 #### [facility] [address] [facility] [place], [address] Erythrocyte distribution wid th ratioOrdered By: Oni Quinteros on 08-17-2024 Erythrocyte distribution width (RBC) [Ratio] 13.1 % 11.6-14.6 [facility] Erythrocyte distribution wid th standard deviationOrdered By: Oni Quinteros on 08-17-2024 Erythrocyte distribution width (RBC) [Entitic vol] 40.5 fL 35.1-43.9 [facility] Erythrocyte distribution width (RBC) [Ratio] 40.5 fl 35.1-43.9 [facility] Erythrocyte sedimentation ra teOrdered By: Oni Quinteros on 08-17-2024 ESR (Bld) [Velocity] 22 mm/h 0-30 [facility] FOLATES,SERUM (FOLIC ACID)on 08-17-2024 FOLATES,SERUM 11.70 ng/mL Normal 4.60-34.80 [facility] Comment on above: Order Comment: N Result Comment: Hemo lysis, Results will be affected, Requires Recollection. Performed By: #### L 500.4050, L100.0100, L505.5000, L501.9100 #### [facility] [address] [place], [place], [id number] Folate [Mass/Vol]Ordered By: Oni Quinteros on 08-17-2024 Serum Folate 11.70 ng/mL 4.60-34.80 [facility] Comment on above: Hemolysis, Results w ill be affected, Requires Recollection. Folate [Mass/volume] in Seru m or PlasmaOrdered By: Oni Quinteros on 08-17-2024 Folate [Mass/Vol] 11.70 ng/mL 4.60-34.80 [facility] Comment on above: Hemolysis, Results w ill be affected, Requires Recollection. GFR/1.73 sq M.predicted rosales g non-blacks MDRD (S/P/Bld) [Vol rate/Area]Ordered By: Oni Quinteros on 08-17-2024 Estimated GFR (MDRD) Non-Af Amer 99 >60 [facility] Comment on above: mL/min/1.73m2 CKD-EP I Creatinine Equation (2020) Glomerular filtration rate ( GFR) estimation/1.73 sq m using serum, plasma, or whole bOrdered By: Oni Quinteros on 08-17-2024 GFR/1.73 sq M.predicted among non-blacks MDRD (S/P/Bld) [Vol rate/Area] 99 mL/min/{1.73_m2} >60 [facility] Comment on above: mL/min/1.73m2 CKD-EP I Creatinine Equation (2020) Hematocrit Auto (Bld) [Volum e fraction]Ordered By: Oni Quinteros on 08-17-2024 Hematocrit (Bld) [Volume fraction] 37.1 % 37-47 [facility] Hemoglobin measurementOrdere d By: Oni Quinteros on 08-17-2024 Hemoglobin (Bld) [Mass/Vol] 12.3 g/dL 12.0-15.0 [facility] Janet-1 antibody assayOrdered B y: Oni Quinteros on 08-17-2024 JANET-1 Antibody TNP [facility] Comment on above: Test not performed L503.0106on 08-17-2024 Cobalamin (Vitamin B12) [Mass/Vol] 473 pg/mL Normal 180-914 [facility] Comment on above: Performed By: #### L 500.4050, L100.0100, L505.5000, L501.9100 #### [facility] [address] [place], [address] Laboratory - Chemistry and C hemistry - challengeOrdered By: Oni Quinteros on 08-17-2024 AST [Catalytic activity/Vol] 17 U/L <32 [facility] MCV (mean corpuscular volume ) determinationOrdered By: Oni Quinteros on 08-17-2024 MCV (RBC) [Entitic vol] 84.9 fL 81-99 [facility] Magnesiumon 08-17-2024 Magnesium [Mass/Vol] 2.1 mg/dL Normal 1.5-2.2 [facility] Comment on above: Performed By: #### L 101.9900, L100.0500, L500.4050, L3100.5450, L3300.8000, L501.9520, L3300.4400, L503.5510, L501.6710, L3300.0960, L501.5200, L506.0200 #### [facility] [address] [place], [address] Magnesium (Unsp spec) [Mass/ Vol]Ordered By: Oni Quinteros on 08-17-2024 Magnesium [Mass/Vol] 2.1 mg/dL 1.5-2.2 [facility] Magnesium measurement (mass/ volume)Ordered By: Oni Quinteros on 08-17-2024 Magnesium (Unsp spec) [Mass/Vol] 2.1 mg/dL 1.5-2.2 [facility] Mean corpuscular hemoglobin (MCH) determinationOrdered By: Oni Quinteros on 08-17-2024 MCH (RBC) [Entitic mass] 28.1 pg 27.0-32.0 [facility] Mean corpuscular hemoglobin concentration (MCHC) determinationOrdered By: Oni Quinteros on 08-17-2024 MCHC (RBC) [Mass/Vol] 33.2 g/dL 32-36 [facility] Mean platelet volume determi nationOrdered By: Oni Quinteros on 08-17-2024 Platelet mean volume (Bld) [Entitic vol] 8.5 fL 6.2-12.0 [facility] Platelet countOrdered By: Ra ina Quinteros on 08-17-2024 Platelets (Bld) [#/Vol] 290 10*3/uL 150-450 [facility] Potassium (Unsp spec) [Mass/ Vol]Ordered By: Oni Quinteros on 08-17-2024 Potassium [Moles/Vol] 3.8 mmol/L 3.3-5.1 [facility] Potassium measurement (mass/ volume)Ordered By: Oni Quinteros on 08-17-2024 Potassium (Unsp spec) [Mass/Vol] 3.8 mmol/L 3.3-5.1 [facility] RBC Auto (Bld) [#/Vol]Ordere d By: Oni Quinteros on 08-17-2024 RBC (Bld) [#/Vol] 4.37 10*6/uL 4.2-5.4 [facility] PHONE REPRESENTATIVE abOrdered By: Oni rosario on 08-17-2024 PHONE REPRESENTATIVE Antibody [facility] Comment on above: Test not performed SCL-70 extractable nuclear A b Qn (S)Ordered By: Oni Quinteros on 08-17-2024 Scl-70 (Scleroderma) Antibody [facility] Comment on above: Test not performed SS-A IgG antibody assayOrder ed By: Oni Quinteros on 08-17-2024 SS-A/Ro IgG Antibody [facility] Comment on above: Test not performed SS-B IgG antibody assayOrder ed By: Oni Quinteros on 08-17-2024 SS-B/La IgG Antibody [facility] Comment on above: Test not performed Serum DNA double strand anti body assay (units/volume)Ordered By: Oni Quinteros on 08-17-2024 DNA double strand Ab Qn (S) [facility] Comment on above: Test not performed Serum Scl-70 antibody assay (units/volume)Ordered By: Oni Quinteros on 08-17-2024 SCL-70 extractable nuclear Ab Qn (S) [facility] Comment on above: Test not performed Serum creatinine measurement (mass/volume)Ordered By: Oni Quinteros on 08-17-2024 Creatinine [Mass/Vol] 0.71 mg/dL 0.70-1.20 [facility] Serum globulin measurementOr dered By: Oni Quinteros on 08-17-2024 Globulin (S) [Mass/Vol] 3.3 g/dL 2.2-4.2 [facility] Serum glucose measurement (m ass/volume)Ordered By: Oni Quinteros on 08-17-2024 Glucose [Mass/Vol] 92 mg/dL 70-99 [facility] Serum or plasma C reactive p rotein measurement (mass/volume)Ordered By: Oni Quinteros on 08-17-2024 CRP [Mass/Vol] 10.10 mg/L High 0.0-3.0 [facility] Serum or plasma alanine pinon otransferase (ALT) measurementOrdered By: Oni Quinteros on 08-17-2024 ALT [Catalytic activity/Vol] 13 U/L <35 [facility] Serum or plasma albumin brii urement (mass/volume)Ordered By: Oni Quinteros on 08-17-2024 Albumin [Mass/Vol] 3.9 g/dL 3.5-5.0 [facility] Serum or plasma albumin/glob ulin mass ratioOrdered By: Oni Quinteros on 08-17-2024 Albumin/Globulin [Mass ratio] 1.2 {ratio} 0.9-2.4 [facility] Serum or plasma alkaline chana sphatase measurementOrdered By: Oni Quinteros on 08-17-2024 ALP [Catalytic activity/Vol] 114 U/L High 35-104 [facility] Serum or plasma calcitriol m easurement (mass/volume)Ordered By: Oni Quinteros on 08-17-2024 1,25-dihydroxyvitamin D3 [Mass/Vol] 45.2 pg/mL 24.8-81.5 [facility] Serum or plasma calcium brii urement (mass/volume)Ordered By: Oni Quinteros on 08-17-2024 Calcium [Mass/Vol] 9.1 mg/dL 7.6-11.0 [facility] Serum or plasma lamotrigine measurement (mass/volume)Ordered By: Oni Quinteros on 08-17-2024 lamoTRIgine [Mass/Vol] 12.2 ug/mL 2.0-20.0 [facility] Comment on above: Detection Limit = 1. 0Performed at: [email or web address] [id number] Director: Pita Foote MD, Phone: [phone] Serum or plasma thiamine osvaldo surement (mass/volume)Ordered By: Oni Quinteros on 08-17-2024 Thiamine [Mass/Vol] 127.9 nmol/L 66.5-200.0 [facility] Serum or plasma urea nitroge n measurement (mass/volume)Ordered By: Oni Quinteros on 08-17-2024 Urea nitrogen [Mass/Vol] 10 mg/dL 4-19 [facility] Garcia antibody assayOrdered By: Oni Quinteros on 08-17-2024 SM Antibody TNP [facility] Comment on above: Test not performed Sodium levelOrdered By: Ryan Quinteros on 08-17-2024 Sodium [Moles/Vol] 138 mmol/L 133-145 [facility] TSH DL <= 0.005 mIU/L QnOrde red By: Oni Quinteros on 08-17-2024 Thyroid Stimulating Hormone (TSH) 1.400 uIU/mL 0.300-4.20 0 [facility] TSH Qn 1.400 uIU/mL 0.300-4.20 0 [facility] Thiamine [Mass/Vol]Ordered B y: Oni Quinteros on 08-17-2024 Whole Blood Vitamin B1 Level 127.9 nmol/L 66.5-200.0 [facility] Thyroid Stim Hormone (TSH)on 08-17-2024 TSH 1.400 uIU/mL Normal 0.300-4.20 0 [facility] Comment on above: Performed By: #### L 500.4050, L100.0100, L505.5000, L501.9100 #### [facility] [address] [place], [address] Total proteinOrdered By: Garett Quinteros on 08-17-2024 Protein [Mass/Vol] 7.2 g/dL 5.9-8.4 [facility] Venous blood ammonia measure mentOrdered By: [facility] on 08-17-2024 Ammonia (P) [Moles/Vol] 15.8 umol/L 11-51 [facility] Vitamin B12 ser/plasOrdered By: Oni Quinteros on 08-17-2024 Cobalamin (Vitamin B12) [Mass/Vol] 473 pg/mL 180-914 [facility] White blood cell (WBC) count Ordered By: Oni Quinteros on 08-17-2024 WBC (Bld) [#/Vol] 8.0 10*3/uL 4.4-11.0 [facility] lamoTRIgine [Mass/Vol]Ordere d By: Oni Quinteros on 08-17-2024 Lamotrigine (Lamictal) Level 12.2 ug/mL 2.0-20.0 [facility] Comment on above: Detection Limit = 1. 0Performed at: - [facility] [id number] Director: Pita Foote MD, Phone: [phone] Colonoscopy Reporton [address] [facility] Medical Records Department [address] [place] [address] Colonoscopy Report MR#: [id number] Acct: [id number] Name: VIDYA FAN Rep #: [id number] : 1965 59 From: Luis Frye DO PCP: Syl Goodwin MD Status:REG [facility] Patient Name: Vidya Fan Procedure Date: 08/14/2024 7:20 AM Date of : 1965 Age: 59 Procedure: Colonoscopy Indications: Follow-up for history of adenomatous polyps in the colon Providers: Luis Frye DO Medicines: Monitored Anesthesia Care Patient Profile: This is a 59 year old female. Refer to note in patient chart for documentation of history and physical. Patient has symptoms of acute dysphagia and acute heartburn. Last Colonoscopy: 3 years ago. Complications: No immediate complications. Procedure: Pre-Anesthesia Assessment: - Prior to the procedure, a History and Physical was performed, and patient medications and allergies were reviewed. The patient is competent. The risks and benefits of the procedure and the sedation options and risks were discussed with the patient. All questions were answered and informed consent was obtained. Patient identification and proposed procedure were verified by the physician in the pre-procedure area. Mental Status Examination: alert and oriented. Airway Examination: normal oropharyngeal airway and neck mobility. Respiratory Examination: clear to auscultation. CV Examination: normal. Prophylactic Antibiotics: The patient does not require prophylactic antibiotics. Prior Anticoagulants: The patient has taken no anticoagulant or antiplatelet agents. ASA Grade Assessment: II - A patient with mild systemic disease. After reviewing the risks and benefits, the patient was deemed in satisfactory condition to undergo the procedure. The anesthesia plan was to use monitored anesthesia care (MAC). Immediately prior to administration of medications, the patient was re-assessed for adequacy to receive sedatives. The heart rate, respiratory rate, oxygen saturations, blood pressure, adequacy of pulmonary ventilation, and response to care were monitored throughout the procedure. The physical status of the patient was re-assessed after the procedure. After I obtained informed consent, the scope was passed under direct vision. Throughout the procedure, the patient's blood pressure, pulse, and oxygen saturations were monitored continuously. The Colonoscope was introduced through the anus and advanced to the cecum, identified by appendiceal orifice and ileocecal valve. The colonoscopy was performed without difficulty. The patient tolerated the procedure well. The quality of the bowel preparation was adequate. The ileocecal valve, appendiceal orifice, and rectum were photographed. Scope In: 7:22:48 AM Scope Withdrawal Time 0 hours 12 minutes 29 seconds Scope Out: 7:37:46 AM Total Procedure Duration Time 0 hours 14 minutes 58 seconds Findings: The perianal and digital rectal examinations were normal. A few small-mouthed diverticula were found in the recto-sigmoid colon and sigmoid colon. Two sessile polyps were found in the transverse colon. The polyps were 6 mm in size. These polyps were removed with a jumbo cold forceps. Resection and retrieval were complete. Verification of patient identification for the specimen was done. Estimated blood loss was minimal. An 11 mm polyp was found in the hepatic flexure. The polyp was sessile. The polyp was removed with a hot snare. Resection and retrieval were complete. Verification of patient identification for the specimen was done. Estimated blood loss was minimal. Impression: - Diverticulosis in the recto-sigmoid colon and in the sigmoid colon. - Two 6 mm polyps in the transverse colon, removed with a jumbo cold forceps. Resected and retrieved. - One 11 mm polyp at the hepatic flexure, removed with a hot snare. Resected and retrieved. Recommendation: - Repeat colonoscopy in 3 years for surveillance. - Continue present medications. Procedure Code(s): --- Professional --- 07770, Colonoscopy, flexible; with removal of tumor(s), polyp(s), or other lesion(s) by snare technique 29393, 59, Colonoscopy, flexible; with biopsy, single or multiple CPT copyright 2021 [employer]. All rights reserved. The codes documented in this report are preliminary and upon washery engineer review may be revised to meet current compliance requirements. Luis Frye DO 08/14/2024 7:44:52 AM This report has been signed electronically. Number of Addenda: 0 Note Initiated On: 08/14/2024 7:20 AM 08/14/24 0745 Date Luis Powers Signature: Date (if indicated) CC: Syl Goodwin MD; Luis Frye DO (more content not included)... Normal [facility] EGD Reporton 08-14-[address] [facility] Medical Records Department [address] [place] [address] EGD Report MR#: [id number] Acct: [id number] Name: VIDYA FAN Rep #: [id number] : 1965 59 From: Luis Frye DO PCP: Syl Goodwin MD Status:REG [facility] Patient Name: Vidya Fan Procedure Date: 08/14/2024 6:27 AM Date of : 1965 Age: 59 Procedure: Upper GI endoscopy Indications: Dysphagia, Suspected esophageal reflux Providers: Luis Frye DO Medicines: Monitored Anesthesia Care Patient Profile: This is a 59 year old female. Refer to note in patient chart for documentation of history and physical. Patient has symptoms of acute dysphagia and acute heartburn. Complications: No immediate complications. Procedure: Pre-Anesthesia Assessment: - Prior to the procedure, a History and Physical was performed, and patient medications and allergies were reviewed. The patient is competent. The risks and benefits of the procedure and the sedation options and risks were discussed with the patient. All questions were answered and informed consent was obtained. Patient identification and proposed procedure were verified by the physician in the pre-procedure area. Mental Status Examination: alert and oriented. Airway Examination: normal oropharyngeal airway and neck mobility. Respiratory Examination: clear to auscultation. CV Examination: normal. Prophylactic Antibiotics: The patient does not require prophylactic antibiotics. Prior Anticoagulants: The patient has taken no anticoagulant or antiplatelet agents. ASA Grade Assessment: II - A patient with mild systemic disease. After reviewing the risks and benefits, the patient was deemed in satisfactory condition to undergo the procedure. The anesthesia plan was to use monitored anesthesia care (MAC). Immediately prior to administration of medications, the patient was re-assessed for adequacy to receive sedatives. The heart rate, respiratory rate, oxygen saturations, blood pressure, adequacy of pulmonary ventilation, and response to care were monitored throughout the procedure. The physical status of the patient was re-assessed after the procedure. After obtaining informed consent, the endoscope was passed under direct vision. Throughout the procedure, the patient's blood pressure, pulse, and oxygen saturations were monitored continuously. The Colonoscope was introduced through the mouth, and advanced to the second part of duodenum. The upper GI endoscopy was accomplished without difficulty. The patient tolerated the procedure well. Scope In: 7:14:16 AM Scope Out: 7:19:39 AM Total Procedure Duration Time 0 hours 5 minutes 23 seconds Findings: LA Grade C (one or more mucosal breaks continuous between tops of 2 or more mucosal folds, less than 75% circumference) esophagitis with no bleeding was found 37 to 40 cm from the incisors. Biopsies were taken with a cold forceps for histology. Verification of patient identification for the specimen was done. Estimated blood loss was minimal. A moderate Schatzki ring was found at the gastroesophageal junction. A guidewire was placed and the scope was withdrawn. Dilation was performed with a Savary dilator with no resistance at 54 Fr. The dilation site was examined and showed. Estimated blood loss was minimal. A medium-sized hiatal hernia was present. No gross lesions were noted in the first portion of the duodenum. Impression: - LA Grade C reflux esophagitis with no bleeding. Biopsied. - Moderate Schatzki ring. Dilated. - Medium-sized hiatal hernia. - No gross lesions in the first portion of the duodenum. Recommendation: - Discharge patient to home. - Resume previous diet. - Continue present medications. - Await pathology results. -Omeprazole 20 mg p.o. twice daily Procedure Code(s): --- Professional --- 48555, Esophagogastroduodenoscopy, flexible, transoral; with insertion of guide wire followed by passage of dilator(s) through esophagus over guide wire 56985, 59,51, Esophagogastroduodenoscopy, flexible, transoral; with biopsy, single or multiple CPT copyright 2021 [employer]. All rights reserved. The codes documented in this report are preliminary and upon washery engineer review may be revised to meet current compliance requirements. Luis Frye DO 08/14/2024 7:42:12 AM This report has been signed electronically. Number of Addenda: 0 Note Initiated On: 08/14/2024 6:27 AM 08/14/24 0742 Date Luis Powers Signature: Date (if indicated) CC: Syl Goodwin MD; Luis Frye DO Date Dictated: 08/14/24626 Date Transcribed: Musical String Maker: RF Signed [facility] [email or web address] 08-14-2024 MR/POSTOP.[facility] Medical Records Department [address] [place] [address] Anesthesia Postop Eval I 08/14/2444 MR#: [id number] Acct: [id number] Name: VIDYA FAN Rep #: [id number] : 1965 59 From: Reji Johnson FIRST SAMPLER PCP: Syl Goodwin MD Status:REG SD Y Race: C Location: [place] [address] Anesthesia: Postop Eval I Current Vital Signs Temperature: 97.8 F Pulse Rate: 82 Blood Pressure: 105/74 Respiratory Rate: 16 Pulse Ox: 99 Assessment Airway patent: Yes Spontaneous unlabored respirations: Yes nausea: No Vomiting: No Anesthesia Complication: No Fluid Hydration Crystalloid volume administer (ml): 30 Total IV fluid infused: 30 Progress Note Anesthesia document: Postop Eval 1 completed: Yes 08/14/24744 Date Reji Garciat FIRST SAMPLER Cosigner Signature: Date CC: Signed [facility] [id number] 08-14-2024 MR/POSTOPAN2 [facility] Medical Records Department [address] [place] [address] Anesthesia Postop Eval II 08/14/24749 MR#: [id number] Acct: [id number] Name: VIDYA FAN Rep #: [id number] : 1965 59 From: Tre Frederick MD PCP: Syl Goodwin MD Status:REG SDC Y Race: C Location: [place] [address] Anesthesia Postop Eval I Sum Postop Eval Completion status Anesthesia document: Postop Eval 1 completed: Yes Anesthesia Postop Eval I Summary Anesthesia Postop Eval I Summary: Anesthesia Postop Eval I: Assessment Summary Airway patent Yes 08/14/24 07:44 FIRST [email or web address].TNES Spontaneous unlabored Yes 08/14/24 07:44 FIRST [email or web address].TNES respirations Mental status nausea No 08/14/24 07:44 FIRST [email or web address].TNES Vomiting No 08/14/24 07:44 FIRST [email or web address].TNES Anesthesia Postop Eval I: Fluid Summary Crystalloid volume administer 30 08/14/24 07:44 FIRST [email or web address].TNES (ml) Colloids volume administered ( ml) Blood Product volume administered (ml) Total IV fluid infused 30 08/14/24 07:44 FIRST [email or web address].TNES Anesthesia Postop Eval I: Summary Notes Anesthesia Complication No 08/14/24 07:44 FIRST [email or web address].TNES Anesthesia Complication Comment: Post-operative progress note Anesthesia: Postop Eval II Evaluation Mental status: Awake Pain Level: 0 nausea: No Vomiting: No Complications Anesthesia Complication: No 08/14/24749 Date Tre Frederick MD Cosigner Signature: Date CC: Signed Normal [facility] Surgery Specimen Level Amalia 08-14-2024 Surgery Specimen Level IV Patient Age/Sex Location Account Attending Physician VIDYA FAN 59/F EN [id number] Luis Frye DO Specimen: [id number] Received: 08/14/24 Status: IRAIDA Macias Num: [id number] Spec Type: EGD BIOPSY Subm Dr: Luis Frye, HEADER OPERATION: Colonoscopy with polyp biopsy and polypectomy, EGD with biopsy PRE-OP DIAGNOSIS: Personal history of colonic polyps, GERD TISSUE SUBMITTED: A- Distal esophagus biopsy, B- Hepatic flexure polyp, C- Transverse colon polyp biopsy MICROSCOPIC DIAGNOSIS A. Distal esophagus, biopsy: * Squamous mucosa with reactive change. * Columnar mucosa negative for goblet cell metaplasia. B. Colon, hepatic flexure, polyp, biopsy: * Tubulovillous adenoma, multiple fragments. C. Colon, transverse, polyp, biopsy: * Tubular adenoma. MICROSCOPIC DESCRIPTION Slides are reviewed. GROSS DESCRIPTION A. Received in fixative is one container labeled with the patient's name and designated Distal esophagus biopsy. The specimen consists of multiple irregular fragments of light feldman soft tissue that in aggregate measure 1.2 x 0.5 x 0.2 cm. The specimen is totally submitted in one cassette. B. Received in fixative is one container labeled with the patient's name and designated Hepatic flexure polyp. The specimen consists of multiple irregular fragments of light feldman soft tissue that in aggregate measure 2.3 x 1.3 x 0.3 cm. The specimen is totally submitted in one cassette. C. Received in fixative is one container labeled with the patient's name and designated Transverse colon polyp biopsy. The specimen consists of multiple irregular fragments of light feldman soft tissue that in aggregate measure 0.7 x 0.4 x 0.2 cm. The specimen is totally submitted in one cassette. / 08/14/2024 [facility]:[id number] Patient Age/Sex Location Account Attending Physician VIDYA FAN/F MARIA D [id number] Luis Frye DO Signed (signature on file) Dr. Nell Ocasio MD 08/16/24 0952 Normal [facility] Comment on above: Performed By: #### L 500.4050, L100.0100, L505.5000, L501.9100 #### [facility] [address] [place], [address] Gastroenterology Visit Repor ton 06-20-2024 Gastroenterology Visit Report [facility] Gastroenterology [address] [place] [address] OFFICE VISIT Date of Service: 06/20/24 MR#: [id number] Acct: [id number] Name: VIDYA FAN Rep #: [id number] : 1965 Provider: RAMAN barroso Age/Sex: 58/F Location: [facility] [place] Status: Signed Intake Vital Signs 05/07/24 11:36 06/20/24 09:36 Height 5 ft 6 in 5 ft 6 in Weight: 180 lb 194 lb 4 oz BMI 29.0 31.3 BP 110/64 119/74 Blood Pressure Location Lt brachial Position Sitting Respiration 15 16 Pulse 82 86 Pulse Source Monitor Temp 98.2 F Temp Source Temporal Pulse Oximetry (%) 96 95 Oxygen Delivery Method room air room air Intake Visit Reasons: Pre colon Chief Complaint: Establish Care Rental Agent Required: No Accompanied by: Caregiver Is patient in pain?: No Allergies blue dye Allergy (Verified 06/20/24 09:33) PT UNSURE OF REACTION monosodium glutamate (msg) Allergy (Verified 06/20/24 09:33) PT UNSURE OF REACTION sertraline (From Zoloft) Allergy (Verified 06/20/24 09:33) PT UNSURE OF REACTION shellfish derived Allergy (Verified 06/20/24 09:33) PT UNSURE OF REACTION Sulfa (Sulfonamide Antibiotics) Allergy (Verified 06/20/24 09:33) unknown Medications ???Medication ???Instructions ???Recorded ???Confirmed ???Type benztropine 0.5 mg tablet 0.5 mg PO BID 12/29/23 06/20/24 History lamotrigine 200 mg tablet 200 mg PO BID 12/29/23 06/20/24 History donepezil 5 mg tablet (Aricept) 5 mg PO QHS 03/19/24 06/20/24 History docusate sodium 100 mg capsule 100 mg PO BID PRN 06/20/24 06/20/24 History famotidine 40 mg tablet 40 mg PO QHS #90 tabs 06/20/24 06/20/24 Rx melatonin 3 mg capsule 3 mg PO HS 06/20/24 06/20/24 History mirtazapine 15 mg tablet 15 mg PO QHS 06/20/24 06/20/24 History omeprazole 20 mg capsule,delayed 20 mg PO QDAY 06/20/24 06/20/24 History release paliperidone 6 mg tablet,extended 6 mg PO QAM 06/20/24 06/20/24 History release 24 hr polyethylene glycol 3350 17 4 g PO QDAY 06/20/24 06/20/24 History gram/dose oral powder potassium chloride 20 mEq 20 meq PO QDAY 06/20/24 06/20/24 History tablet,extended release Nurse's Note: Has not been having any problems. Just time for a colonoscopy again. [facility] Medical History Elevated liver enzymes Calculus of gallbladder without cholecystitis without obstruction Transaminitis Social History Smoking Status: Never smoker HPI HPI Chief Complaint: Establish Care Details: VIDYA FAN, is a 58 F who presents to the office today for COLON: 2017 SSP - recommended recall was for 3 years - denies any change in bowel habits - denies any pain - denies any bleeding - denies any family h/o colon CA - denies any heart or lung disease - denies any kidney disease - denies any weight loss - she c/o GERD for the past 2 years - worse when she lays down - no issues after eating - she reports at least 3-4 hours between dinner and bed - denies any dysphagia - she is on Omeprazole 20mg every morning - has been elevating head with pillows - reports waking at 10 or 11pm and unable to relieve HB - denies any heart or lung disease ROS Const Constitutional: Positive for frequent falls; No fatigue, fever(s) or weight change ENT ENT: No difficulty swallowing Gastro GI: Positive for heartburn; No abdominal pain, belching, bloating, change in bowel habits, change in stool character, coffee ground emesis, constipation, cramping, diarrhea, difficulty swallowing, feeling full early, excessive flatus, incontinent of stools, Vomiting blood/hematemesis, Blood in stool, loose stools, Black,tarry stools, nausea/dyspepsia, pain with swallowing, vomiting or other Musc Musculoskeletal: No joint pain Skin Skin: No yellowing of the eye or itchy eyes Neuro Neurology: Positive for dizziness and frequent falls Psych Psychiatric: Positive for anxiety, Positive for depression, Positive for Behavioral Problems and Positive for Compulsive Behavior Endo Endocrine: No fatigue or weight change Aller/Imm Allergy/Immunologic: No itchy eyes Shalom/Lymp Hematologic/Lymphatic: No easy bleeding or easy bruising Exam Const General: healthy appearing, no acute distress and well developed Nutritional Appearance: average body habitus and well nourished Orientation: alert and oriented x3 [facility] Head: normocephalic Ears: hearing grossly normal bilaterally Mouth: moist mucous membranes Teeth and gingiva: dentition normal Eyes Conjunctivae: conjunctivae normal Sclera: sclerae normal Neck Neck: normal visual inspection, full ROM and trachea midline Resp Effort Inspection: normal respiratory effort, able to speak in complete senten (more content not included)... Normal [facility] Neurology Visit Reporton Neurology Visit Report [facility] [address] [facility] [address], [address] [place] [address] OFFICE VISIT Date of Service: 05/07/24 MR#: [id number] Acct: [id number] Name: VIDYA FAN Rep #: [id number] : 1965 Provider: Dr. Oni peña MD Age/Sex: 58/F Location: [facility]. Status: Signed HPI [facility] Chief Complaint: Establish Care Details: Interim History: Vidya returns for follow-up visit. She has a past medical history of hyperlipidemia, bipolar disorder, depression, obsessive-compulsive disorder, and schizoaffective disorder. She is accompanied by her sister. Since her late teenage years, the patient has had episodes of visual hallucinations that have lasted up to 9 hours at a time. These episodes are preceded by the onset of a black scotoma in her visual estrada surrounded by scintillations. Her hallucinations began about 10 seconds following the onset of the scotoma. She is able to ambulate and communicate verbally during these periods of having hallucinations. Over the years, these episodes have occurred about once or twice per week and often appear to be triggered by emotional stress. During these episodes, she exhibits anxiety and agitation and trembling. The visual hallucinations are disturbing to the patient. These episodes subside if she is able to sleep. In earlier years, the patient's cognitive function was reported to be normal between these episodes. She completed some college courses and had been previously employed. Within more recent years, and particularly since mid-2022, she has exhibited some cognitive decline. She appears confused and often her conversation is unrelated to the situation or topic being discussed. At one point, when she was a teenager, the possibility of temporal lobe epilepsy was raised (apparently based on clinical impression rather than a diagnostic test); at one point, in years past, she was treated with carbamazepine for 1 year and this reported was of benefit however details regarding this are presently not available. She was started on perphenazine; she began having a tremor around the time of the start of this medication. Trilafon was discontinued. Quetiapine, aripiprazole, and ziprasidone were not of benefit for her hallucination. Haloperidol and lithium caused edema. Risperidone was of benefit but caused weight gain. She was living at home for a period of time then subsequently entered a [place] community and received assistance from community members. An inpatient psychiatric facility stay was attempted in the latter part of 2021 or early 2022 however concern was raised that an organic process such as epilepsy may be accounting for some of her symptoms. Since mid, she has been residing in a [facility] facility. She has had insomnia. At the time of her initial assessment in this office in December 2023 her Mini-Mental status exam score was 2/30. Concern was raised that she was having medication side effects which were producing cognitive blunting and the following medication changes were made. Trazodone (produced daytime hypersomnia and and increased confusion) and benztropine were discontinued. Perphenazine was continued at a reduced dose of 4 mg daily. Fluoxetine was continued. Lamotrigine (for her schizoaffective disorder was continued. She subsequently exhibited significant improvement of her cognitive ability. She, however, then had an episode of psychosis for which she was hospitalized. Perphenazine and fluoxetine were discontinued and mirtazapine and paliperidone ER were initiated and benztropine was resumed. Since November 2023, she has been taking donepezil for possible dementia. Since initiation of lamotrigine in November 2022, she has had no further hallucinations. Physical Exam: Neuro: The patient is awake and alert; speech is fluent; Mini-Mental status exam score is 30/30; a left hand tremor is noted when arms are extended; no rigidity is noted in the wrist; gait is unremarkable Heart: Regular rhythm and rate Supplemental Info Head MRI (01/25/2024): COMPARISON: None. FINDINGS: Normal size of the ventricles and extra-axial spaces for the patient''s age. There are a limited number of small white matter hyperintensities, distributed throughout the deep white matter tracts of the cerebral hemispheres, consistent with mild chronic white matter ischemic changes. There is no evidence for recent intracranial ischemia or other cause of cytotoxic edema on diffusion weighted imaging (DWI). Normal T2* images of the brain without demonstrated susceptibility artifact. There is no demonstrated hemosiderin stain. There are no demyelinating plagues of the supratentorial brain, brainstem or cerebellum. There are no findings suspicious for multiple sclerosis (MS). Normal bilateral basal ganglia. Normal thalami. There is no extra-axial fluid accumulation. Normal flow voids within the major intracranial (more content not included)... Normal [facility] Alcohol, Blood (Medical)-Ser [facility] 03-18-2024 SERUM ETOH < 3.0 Normal [facility] Comment on above: Result Comment: The serum:whole blood ethanol ratio is approximately 1.14 and varies slightly with hematocrit. Medical Alcohol reference interval and critical value in non-tolerant individuals; 50 - 100 Impairment 100 Intoxication 100 - 250 Severe Poisoning 250 - 400 Deep/possible fatal coma Performed By: #### L 500.4050, L100.0100, L505.5000, L501.9100 #### [facility] [address] [place], [address] CBC W/Diff, Automatedon 10-2 0-4 Nucleated RBC (Bld) [#/Vol] 0 10*3/uL Normal 0-5 [facility] Comment on above: Performed By: #### L 500.4050, L100.0100, L505.5000, L501.9100 #### [facility] [address] [facility], [address] Absolute Lymph 1.54 X10 3/uL Normal 0.83-4.51 [facility] Comment on above: Performed By: #### L 500.4050, L100.0100, L505.5000, L501.9100 #### [facility] [address] [place], [address] Absolute Neut 7.3 X10 3/uL Normal 2.0-7.7 [facility] Comment on above: Performed By: #### L 500.4050, L100.0100, L505.5000, L501.9100 #### [facility] [address] [place], [address] Basophils/100 WBC (Bld) 0.8 % Normal 0-1 [facility] Comment on above: Performed By: #### L 500.4050, L100.0100, L505.5000, L501.9100 #### [facility] [address] [place], [address] Eosinophils/100 WBC (Bld) 1.1 % Normal 0-5 [facility] Comment on above: Performed By: #### L 500.4050, L100.0100, L505.5000, L501.9100 #### [facility] [address] [place], [address] Erythrocyte distribution width (RBC) [Ratio] 12.9 % Normal 11.6-14.6 [facility] Comment on above: Performed By: #### L 500.4050, L100.0100, L505.5000, L501.9100 #### [facility] [address] [place], [address] Hematocrit (Bld) [Volume fraction] 41.4 % Normal 37-47 [facility] Comment on above: Performed By: #### L 500.4050, L100.0100, L505.5000, L501.9100 #### [facility] [address] [place], [address] Hemoglobin (Bld) [Mass/Vol] 14.0 g/dL Normal 12.0-15.0 [facility] Comment on above: Performed By: #### L 500.4050, L100.0100, L505.5000, L501.9100 #### [facility] [address] [place], [address] IG% 0.400 Normal 0.0-0.9 [facility] Comment on above: Result Comment: IG% - Immature Granulocytes (promyelocytes, myelocytes and metamyelocytes) > 1% indicates that a LEFT SHIFT is Present. Performed By: #### L 500.4050, L100.0100, L505.5000, L501.9100 #### [facility] [address] [place], [address] Lymphocytes/100 WBC (Bld) 15.3 % Low 19-41 [facility] Comment on above: Performed By: #### L 500.4050, L100.0100, L505.5000, L501.9100 #### [facility] [address] [place], [address] MCH (RBC) [Entitic mass] 29.7 pg Normal 27.0-32.0 [facility] Comment on above: Performed By: #### L 500.4050, L100.0100, L505.5000, L501.9100 #### [facility] [address] [place], [address] MCHC (RBC) [Mass/Vol] 33.8 g/dL Normal 32-36 [facility] Comment on above: Performed By: #### L 500.4050, L100.0100, L505.5000, L501.9100 #### [facility] [address] [place], [address] MCV (RBC) [Entitic vol] 87.9 fL Normal 81-99 [facility] Comment on above: Performed By: #### L 500.4050, L100.0100, L505.5000, L501.9100 #### [facility] [address] [place], [address] Monocytes/100 WBC (Bld) 9.7 % Normal 0-10 [facility] Comment on above: Performed By: #### L 500.4050, L100.0100, L505.5000, L501.9100 #### [facility] [address] [place], [address] Neutrophils/100 WBC (Bld) 72.7 % High 47-70 [facility] Comment on above: Performed By: #### L 500.4050, L100.0100, L505.5000, L501.9100 #### [facility] [address] [place], [address] Platelet mean volume (Bld) [Entitic vol] 8.3 fL Normal 6.2-12.0 [facility] Comment on above: Performed By: #### L 500.4050, L100.0100, L505.5000, L501.9100 #### [facility] [address] [place], [address] Platelets (Bld) [#/Vol] 327 10*3/uL Normal 150-450 [facility] Comment on above: Performed By: #### L 500.4050, L100.0100, L505.5000, L501.9100 #### [facility] [address] [place], [address] RBC (Bld) [#/Vol] 4.71 10*6/uL Normal 4.2-5.4 [facility] Comment on above: Performed By: #### L 500.4050, L100.0100, L505.5000, L501.9100 #### [facility] [address] [place], [address] RDW SD 41.8 fl Normal 35.1-43.9 [facility] Comment on above: Performed By: #### L 500.4050, L100.0100, L505.5000, L501.9100 #### [facility] [address] [place], [address] WBC (Bld) [#/Vol] 10.1 10*3/uL Normal 4.4-11.0 [facility] Comment on above: Performed By: #### L 500.4050, L100.0100, L505.5000, L501.9100 #### [facility] [address] [place], [address] Comprehensive Metabolic Prof [facility] 03-18-2024 Albumin [Mass/Vol] 3.8 g/dL Normal 3.2-5.0 [facility] Comment on above: Performed By: #### L 500.4050, L100.0100, L505.5000, L501.9100 #### [facility] [address] [place], [address] Albumin/Globulin [Mass ratio] 0.9 {ratio} Normal 0.9-2.4 [facility] Comment on above: Performed By: #### L 500.4050, L100.0100, L505.5000, L501.9100 #### [facility] [address] [place], [address] ALK P 115 U/L Normal 45-117 [facility] Comment on above: Performed By: #### L 500.4050, L100.0100, L505.5000, L501.9100 #### [facility] [address] [place], [address] ALT [Catalytic activity/Vol] 34 U/L Normal 13-56 [facility] Comment on above: Performed By: #### L 500.4050, L100.0100, L505.5000, L501.9100 #### [facility] [address] [place], [address] AST [Catalytic activity/Vol] 20 U/L Normal 15-37 [facility] Comment on above: Performed By: #### L 500.4050, L100.0100, L505.5000, L501.9100 #### [facility] [address] [place], [address] Bilirubin [Mass/Vol] 0.50 mg/dL Normal 0.20-1.00 [facility] Comment on above: Result Comment: For patients on eltrombopag therapy, use of Dimension [place] TBIL is not recommended. Performed By: #### L 500.4050, L100.0100, L505.5000, L501.9100 #### [facility] [address] [place], [address] BUN/CRE 21.3 RATIO High 10-20 [facility] Comment on above: Performed By: #### L 500.4050, L100.0100, L505.5000, L501.9100 #### [facility] [address] [place], [address] CA,Total 9.7 mg/dL Normal 8.5-10.1 [facility] Comment on above: Performed By: #### L 500.4050, L100.0100, L505.5000, L501.9100 #### [facility] [address] [place], [address] Chloride [Moles/Vol] 107 mmol/L Normal 98-107 [facility] Comment on above: Performed By: #### L 500.4050, L100.0100, L505.5000, L501.9100 #### [facility] [address] [place], [address] CO2 [Moles/Vol] 27.0 mmol/L Normal 21.0-32.0 [facility] Comment on above: Performed By: #### L 500.4050, L100.0100, L505.5000, L501.9100 #### [facility] [address] [place], [address] Creatinine [Mass/Vol] 0.75 mg/dL Normal 0.55-1.02 [facility] Comment on above: Result Comment: The validity of the calculated GFR GFRAA in patients over 70 years has not been determined. Clinical correlation is essential. Performed By: #### L 500.4050, L100.0100, L505.5000, L501.9100 #### [facility] [address] [place], [address] ECRCL 84.74 ml/min Normal [facility] Comment on above: Performed By: #### L 500.4050, L100.0100, L505.5000, L501.9100 #### [facility] [address] [place], [address] EST GFR - AA 102 mL/min Normal >60 [facility] Comment on above: Result Comment: Afri can [place] GFR Calc Performed By: #### L 500.4050, L100.0100, L505.5000, L501.9100 #### [facility] [address] [place], [address] GAP 6 Normal 5-15 [facility] Comment on above: Performed By: #### L 500.4050, L100.0100, L505.5000, L501.9100 #### [facility] [address] [place], [address] GFR/1.73 sq M.predicted among non-blacks MDRD (S/P/Bld) [Vol rate/Area] 84 mL/min/{1.73_m2} Normal >60 [facility] Comment on above: Result Comment: Non- GFR Calc Performed By: #### L 500.4050, L100.0100, L505.5000, L501.9100 #### [facility] [address] [place], [address] Globulin (S) [Mass/Vol] 4.1 g/dL Normal 2.2-4.2 [facility] Comment on above: Performed By: #### L 500.4050, L100.0100, L505.5000, L501.9100 #### [facility] [address] [place], [address] Glucose [Mass/Vol] 114 mg/dL High 74-106 [facility] Comment on above: Result Comment: Fast ing Glucose result from 100 to 125 mg/dL suggests IMPAIRED HOMEOSTASIS per A.D.A. criteria. Performed By: #### L 500.4050, L100.0100, L505.5000, L501.9100 #### [facility] [address] [place], [address] Potassium [Moles/Vol] 3.8 mmol/L Normal 3.5-5.1 [facility] Comment on above: Performed By: #### L 500.4050, L100.0100, L505.5000, L501.9100 #### [facility] [address] [place], [address] Sodium [Moles/Vol] 140 mmol/L Normal 136-145 [facility] Comment on above: Performed By: #### L 500.4050, L100.0100, L505.5000, L501.9100 #### [facility] [address] [place], [address] T PROT 7.9 g/dL Normal 6.4-8.2 [facility] Comment on above: Performed By: #### L 500.4050, L100.0100, L505.5000, L501.9100 #### [facility] [address] [place], [address] Urea nitrogen [Mass/Vol] 16 mg/dL Normal 7-18 [facility] Comment on above: Performed By: #### L 500.4050, L100.0100, L505.5000, L501.9100 #### [facility] [address] [place], [address] Emergency Department Summary on 03-18-2024 Emergency Department Summary [facility] Medical Records Department [address] [place] [address] Emergency Department Summary 03/18/24 MR#: [id number] Acct: [id number] Name: VIDYA FAN Rep #: [id number] : 1965 58 From: Yoel Power MD PCP: Syl Goodwin MD Status:REG ER Location: ED HPI HPI - Psych History of Present Illness Chief Complaint: Mental Health Narrative Narrative: History and physical is limited secondary to patient's psychiatric condition. 58-year-old female presents from her [facility] facility with increased psychosis after being taken off medications/medication adjustment. She has been pink slipped by the psychiatric nurse practitioner at the facility. It was reported that when they came to her few months ago, she was heavily medicated, and was more nonverbal and would walk to the lunchroom and back. As they adjusted her medications, over the last week she has decompensated and has become more psychotic. She is not redirectable. 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 She was also walking around the facility without clothing. Here in the emergency department, she states that she is nervous but denies any physical symptoms such as chest pain cough, problems with urination, or any other symptoms. PFSH PFSH Medical History unable to obtain Home Medications ???Medication ???Instructions ???Recorded ???Last Taken ???Type Bacillus coagulans 2.5 billion cell PO 12/29/23 Unknown History cell chewable tablet (Probiotic (B. coagulans)) acetaminophen 325 mg chewable 650 mg PO Q4-6H PRN 12/29/23 Unknown History tablet wjlgvyj-yplwpkxbaszkj-kttko ine 250 2 tab PO ONCE PRN 12/29/23 Unknown History mg-250 mg-65 mg tablet (Excedrin Migraine) atorvastatin 20 mg tablet 20 mg PO QHS 12/29/23 Unknown History benztropine 0.5 mg tablet 0.5 mg PO BID 12/29/23 Unknown History bisacodyl 10 mg rectal suppository 10 mg GA DAILY PRN 12/29/23 Unknown History (Dulcolax (bisacodyl)) bisacodyl 5 mg tablet,delayed 10 mg PO ONCE 12/29/23 Unknown History release coenzyme Q10 100 mg capsule 100 mg PO DAILY 12/29/23 Unknown History (CoQ-10) donepezil 5 mg disintegrating 2.5 mg PO DAILY 12/29/23 Unknown History tablet fluoxetine 60 mg tablet 60 mg PO QAM 12/29/23 Unknown History lamotrigine 200 mg tablet 200 mg PO BID 12/29/23 Unknown History magnesium hydroxide 400 mg/5 mL 30 ml PO DAILY PRN 12/29/23 Unknown History oral suspension (Milk of Magnesia) mineral oil (Fleet Mineral Oil 118 ml GA DAILY PRN 12/29/23 Unknown History enema) perphenazine 8 mg tablet 8 mg PO BID 12/29/23 Unknown History promethazine 25 mg/mL injection 25 mg IM Q8H PRN PRN 12/29/23 Unknown History syringe trazodone 50 mg tablet 25 mg PO QHS 12/29/23 Unknown History Allergy/AdvReac Type Severity Reaction Status Date / Time blue dye Allergy PT UNSURE Verified 03/18/24 21:13 OF REACTION monosodium glutamate (msg) Allergy PT UNSURE Verified 03/18/24 21:13 OF REACTION sertraline (From Zoloft) Allergy PT UNSURE Verified 03/18/24 21:13 OF REACTION shellfish derived Allergy PT UNSURE Verified 03/18/24 21:13 OF REACTION Sulfa (Sulfonamide Allergy unknown Verified 03/18/24 21:13 Antibiotics) Family History unable to obtain Surgical History unable to obtain Social History Smoking Status: Never smoker ROS ROS ED ROS Narrative Unable to obtain from patient's secondary to psychiatric condition. EXAM Physical Exam Narrative Exam Narrative: Afebrile. Vital signs noted. Regular rate and rhythm. Lungs clear to auscultation bilaterally. Abdomen soft nontender with normal active bowel sounds. Ambulatory in ED. Psychiatric examination shows acute psychosis. She states that she sees things but denies any auditory hallucinations. She is able to ambulate to the bathroom and back. She keeps coming out of her room, and fidgeting with something behind the bed. Const Vital Signs: 03/18/24 20:48 03/18/24 23:23 Temperature 98.3 F Temperature Source Temporal Pulse Rate 83 75 Respiratory Rate 16 18 Blood Pressure 123/83 H 109/67 Blood Pressure Mean 96 81 Pulse Ox 96 95 Oxygen Delivery Method Room Air Room Air MDM MDM MDM Narrative Medical decision making narrative: Differential diagnosis includes but not limited to metabolic cause of delirium versus her history of dementia when I reviewed her previous problem list. I feel she has more decompensated psychosis. As she is not redirectable and becoming more agitated, she was administered Geodon 20 mg intramuscularly. I reviewed her laboratory work and she has a white count that is normal at 10.1 with hemoglobi (more content not included)... Normal [facility] Urine Drug Screen (VISTA)on 03-18-2024 AMPHETAMINES Negative Normal <1000 ng/mL [facility] Comment on above: Performed By: #### L 500.4050, L100.0100, L505.5000, L501.9100 #### [facility] [address] [place], [address] BARBITIURATES Negative Normal < 200 ng/mL [facility] Comment on above: Performed By: #### L 500.4050, L100.0100, L505.5000, L501.9100 #### [facility] [address] [place], [address] BENZODIAZIPINE Negative Normal < 200 ng/mL [facility] Comment on above: Performed By: #### L 500.4050, L100.0100, L505.5000, L501.9100 #### [facility] [address] [place], [address] COCAINE Negative Normal < 300 ng/mL [facility] Comment on above: Performed By: #### L 500.4050, L100.0100, L505.5000, L501.9100 #### [facility] [address] [place], [address] ECSTACY Negative Normal < 500 ng/mL [facility] Comment on above: Performed By: #### L 500.4050, L100.0100, L505.5000, L501.9100 #### [facility] [address] [place], [address] METHADONE Negative Normal < 300 ng/mL [facility] Comment on above: Performed By: #### L 500.4050, L100.0100, L505.5000, L501.9100 #### [facility] [address] [place], [address] OPIATES Negative Normal < 300 ng/mL [facility] Comment on above: Performed By: #### L 500.4050, L100.0100, L505.5000, L501.9100 #### [facility] [address] [place], [address] PCP Negative Normal < 25 ng/mL [facility] Comment on above: Performed By: #### L 500.4050, L100.0100, L505.5000, L501.9100 #### [facility] [address] [place], [address] THC Negative Normal < 50 ng/mL [facility] Comment on above: Performed By: #### L 500.4050, L100.0100, L505.5000, L501.9100 #### [facility] [address] [place], [address] VISTA UDS PH 6 Normal [facility] Comment on above: Performed By: #### L 500.4050, L100.0100, L505.5000, L501.9100 #### [facility] [address] [place], [address] Brain W/WO Contraston 2023 Brain W/WO [facility]rast [facility] [address] [place] [address] Brain W/WO Contrast MR#: [id number] Acct: [id number] Name: VIDYA FAN Rep #: [id number] : 1965 F 58 From: Main cates MD PCP: Syl Goodwin MD Status: REG CL Study: Brain W/WO Contrast Date of Exam: 01/25/24 Exam# [id number] Ordering Dr: Oni Quinteros MD [id number] STUDY: MRI BRAIN WITH AND WITHOUT CONTRAST REASON FOR EXAM: Female, 58 years old. possible epilepsy; cognitive impairment POSSIBLE EPILEPSY, HALLUCINATIONS, INVOLUNTARY TREMORS TECHNIQUE: Standardized multiplanar fat and water weighted pulse sequences were obtained. IV 14CC CLARISCAN was administered for the contrast portion of the examination. COMPARISON: None. FINDINGS: Normal size of the ventricles and extra-axial spaces for the patient''s age. There are a limited number of small white matter hyperintensities, distributed throughout the deep white matter tracts of the cerebral hemispheres, consistent with mild chronic white matter ischemic changes. There is no evidence for recent intracranial ischemia or other cause of cytotoxic edema on diffusion weighted imaging (DWI). Normal T2* images of the brain without demonstrated susceptibility artifact. There is no demonstrated hemosiderin stain. There are no demyelinating plagues of the supratentorial brain, brainstem or cerebellum. There are no findings suspicious for multiple sclerosis (MS). Normal bilateral basal ganglia. Normal thalami. There is no extra-axial fluid accumulation. Normal flow voids within the major intracranial circulation suggesting patency by spin echo criteria. Normal venous enhancement. There is no enhancing intra-axial or extra-axial abnormality. No suspicious or enhancing lesions of the brain parenchyma present. There is no abnormal thickening or enhancement of meninges or dura. No skull lesions are present. Normal sella turcica, pituitary gland, infundibular stalk, optic chiasm and hypothalamus. Normal tectal plate and pineal gland. Normal midbrain, deysi and medulla. Normal cerebellum. Normal basal cisterns. Normal bilateral temporal bones. Normal bilateral internal auditory canals. No demonstrated orbital abnormality, within the constraints of a routine brain study. Normal visualized paranasal sinuses. Normal calvarium and skull base. Normal visualized soft tissue structures. Normal visualized upper cervical spine. MRI/Brain W/WO Contrast IMPRESSION: 1. Minimal chronic ischemic changes of the brain, as described above. Electronically Signed: Main Cerna MD at 10:04 EDT , CC: Dr. Oni Quinteros MD; Sly Goodwin MD Musical String Maker: Signed Normal [facility] Neurology Visit Reporton Neurology Visit Report [facility] [address], [address] [place] [address] OFFICE VISIT Date of Service: 12/29/23 MR#: [id number] Acct: [id number] Name: VIDYA FAN Rep #: [id number] : 1965 Provider: Dr. Oni peña MD Age/Sex: 58/F Location: [facility]. Status: Signed HPI [facility] Chief Complaint: Establish Care Details: History: The patient is a 58-year-old right-handed woman with a past medical history of hyperlipidemia, bipolar disorder, depression, obsessive-compulsive disorder, and schizoaffective disorder who presents for neurological evaluation. She is accompanied by her sister. Since her late teenage years, the patient has had episodes of visual hallucinations that have lasted up to 9 hours at a time. These episodes are preceded by the onset of a black scotoma in her visual estrada surrounded by scintillations. Her hallucinations began about 10 seconds following the onset of the scotoma. The patient is able to ambulate and communicate verbally during these periods of having hallucinations. Over the years, these episodes have occurred about once or twice per week and often appear to be triggered by emotional stress. During these episodes, she exhibits anxiety and agitation and trembling. The visual hallucinations are disturbing to the patient. These episodes subside if the patient is able to sleep. In earlier years, the patient's cognitive function was reported to be normal between these episodes. She completed some college courses and had been previously employed. Within more recent years, and particularly since mid-2022, she has exhibited some cognitive decline. She appears confused and often her conversation is unrelated to the situation or topic being discussed. At one point, when she was a teenager the possibility of temporal lobe epilepsy was raised (apparently based on clinical impression rather than a diagnostic test); at one point, in years passed, she was treated with carbamazepine for 1 year and this reported was of benefit however details regarding this are presently not available. She was started on perphenazine; she began having a tremor around the time of the start of this medication. Trilafon was discontinued. Quetiapine, aripiprazole, and ziprasidone were not of benefit for her hallucination. Haloperidol and lithium caused edema. Risperidone was of benefit but caused weight gain. She was living at home for a period of time then subsequently entered a [place] community and received assistance from community members. An inpatient psychiatric facility stay was attempted in the latter part of 2021 or early 2022 however concern was raised that an organic process such as epilepsy may be accounting for some of her symptoms. Since 2022, she has been residing in a [facility] facility. She has had insomnia. She currently takes trazodone and this is producing daytime hypersomnia and increased confusion. She has been treated with multiple psychiatric medications and currently takes perphenazine, fluoxetine, benztropine (for tremor), lamotrigine (for her schizoaffective disorder). Since November 2023, she has been taking donepezil for possible dementia. Since initiation of lamotrigine in November 2022, she has had no further hallucinations. Past Medical History: As above. There is no history of hypertension, diabetes mellitus, lung disease, thyroid disease, cancer, renal disease, or sleep apnea. Social History: There is no history of smoking tobacco, alcohol abuse, illicit drug use. Family History: There is no family history of cerebral aneurysm, seizure, or tremor. The patient's grandmother had parkinson's disease, The patient's father had alcoholism or mental illness. The patient's mother had mild cognitive decline. Review of Systems: As above. The patient has not had any recent fever, rash, weight change, chest pain, shortness of breath, or gastrointestinal problems. She has had urinary incontinence for the past year. Physical Exam: General: Well-developed, well-nourished female in no acute distress. Neuro: The patient is awake; she is bradyphrenic; she exhibits a paucity of speech; her speech is slow and slightly dysarthric; Mini-Mental status exam score is 2/30 Cranial nerves: PERRL, 3mm bilaterally; EOMI; she responds to visual threat in both temporal estrada; visual acuity is better than 20/400 bilaterally, face is symmetrical; tongue is midline Cerebellar system: No nystagmus Deep tendon reflexes: +2 at the left triceps, biceps bilaterally and right brachioradialis, +1 at the right triceps, absent at the left brachioradialis, knees and ankles; plantar responses are downward bilaterally Motor: Motor strength testing could not be fully ascertained due to patient's inability to follow commands; she moves all extremities purposefully; no rigidity is noted in the wrists; a mild tremor is noted in the hands an (more content not included)... Normal [facility] Yossi 12-16-2022 [facility] Telephone (GASTA5) MENGVIDYA ([id number]) 1965 F Date Time Provider Department 12/16/22 ARIADNA REYES ([facility]) GASTA5 During your visit today, we recorded the following information about you: Ariadna Reyes 12/16/2022 12:56 PM Signed Called Vidya Fan to remind them of an appointment with Dr. Burt on 12/17/22. Phone number provided was incorrect. Non-working number. Patient not active on MyChart. Allergies As of Date: 12/16/2022 Noted Allergy Reaction SULFA (SULFONAMIDE ANTIBIOTICS) 11/26/2022 2 - Rash ZOLOFT (SERTRALINE) 11/26/2022 14 - Other: See Comments Comments: Dizziness Date Reviewed: 11/29/2022 Reviewed by: Margoth Elias, RN - Fully Assessed Reason for Visit: Appointment [[id number]] Prescriptions as of 12/16/2022 - acetaminophen (TYLENOL) 500 mg tablet Take 500 mg by mouth every 8 hours as needed. - benztropine (COGENTIN) 0.5 mg tablet Take by mouth twice daily. - ubidecarenone/vitamin E mixed (COQ10 SG 100 ORAL) Take by mouth. - acetaminophen-caffeine (EXCEDRIN TENSION HEADACHE) 500-65 mg tablet Take 2 tablets by mouth one time only. - FLUoxetine (PROZAC) 20 mg capsule Take 20 mg by mouth once daily. - FLUoxetine (PROZAC) 40 mg capsule Take 40 mg by mouth once daily. - lamoTRIgine (LAMICTAL) 200 mg tablet Take 200 mg by mouth twice daily. - perphenazine 8 mg tablet Take 8 mg by mouth twice daily. - L.acidophilus-L.rhamnosus (PROBIOTIC) 15 billion cell capsule Take 1 capsule by mouth once daily. - rosuvastatin 10 mg cpSP Take 10 mg by mouth once daily. - traZODone (DESYREL) 50 mg tablet Take 50 mg by mouth daily at bedtime. - calcium-vitamin D3-magnesium 200 mg calcium- 1.25 mcg cap Take 1.25 mg by mouth once daily. Problem List As Of Date 12/16/2022 Noted Resolved Seizure-like activity (HCC) [R56.9] 11/26/2022 Transaminitis [R74.01] 11/27/2022 Visual hallucinations [R44.1] 11/29/2022 Depression [F32.A] 11/29/2022 Anxiety [F41.9] 11/29/2022 Schizoaffective disorder (HCC) [F25.9] 11/29/2022 Bipolar disorder (HCC) [F31.9] 11/29/2022 OCD (obsessive compulsive disorder) [F42.9] 11/29/2022 Migraines [G43.909] 11/29/2022 Tremor, unspecified [R25.1] 11/29/2022 Cholelithiasis [K80.20] 11/29/2022 Encounter Status:Closed by ARIADNA REYES on 12/16/22 Normal [facility] CNCOon 12-03-2022 CNCO Letter Text Normal [facility] .Auto Diffon 12-01-2022 Basophil, Absolute 0.0 10 3/mcL Normal 0.0-0.2 [facility] ([place]) Comment on above: Performed By: #### C BALJINDER LINDSAY ANEU, CHASIDY, BMP, GFR #### [address] [address] Basophils/100 WBC (Bld) 0.5 % Normal 0.0-2.5 [facility] ([place]) Comment on above: Performed By: #### C BALJINDER LINDSAY ANEU, MDW, BMP, GFR #### [address] [address] Eosinophil, Absolute 0.2 10 3/mcL Normal 0.0-0.4 [facility] [place] Comment on above: Performed By: #### C BALJINDER LINDSAY ANEU, MDW, BMP, GFR #### [address] [address] Eosinophils/100 WBC (Bld) 2.7 % Normal 0.0-7.0 [facility] ([place] Comment on above: Performed By: #### C BC, BALJINDER, YONATAN, MDW, BMP, GFR #### [address] [address] Lymphocyte, Absolute 1.1 10 3/mcL Normal 0.8-3.9 [facility] [place] Comment on above: Performed By: #### C BC, BALJINDER, YONATAN, MDW, BMP, GFR #### [address] [address] Lymphocytes/100 WBC (Bld) 17.6 % Normal 10.0-50.0 [facility] ([place] Comment on above: Performed By: #### C BC, BALJINDER, YONATAN, MDW, BMP, GFR #### [address] [address] Monocyte, Absolute 0.6 10 3/mcL Normal 0.2-1.0 [facility] ([place] Comment on above: Performed By: #### C NEFTALI, BALJINDER, YONATAN, MDW, BMP, GFR #### [address] [address] Monocytes/100 WBC (Bld) 9.7 % Normal 1.7-13.0 [facility] [place] Comment on above: Performed By: #### C BC, BALJINDER, YONATAN, MDW, BMP, GFR #### [address] [address] Neutrophils/100 WBC (Bld) 69.5 % Normal 37.0-80.0 [facility] [place] Comment on above: Performed By: #### C BC, BALJINDER, YONATAN, MDW, BMP, GFR #### [address] [address] .GFRon 12-01-2022 GFR 80 ml/min/1.73sqm Normal [facility] [place] Comment on above: Result Comment: GFR Population mean for , Non- Americans Ages 20-29 = 116 mL/min/1.73 sq.m. Ages 30-39 = 107 mL/min/1.73 sq.m. Ages 40-49 = 99 mL/min/1.73 sq.m. Ages 50-59 = 93 mL/min/1.73 sq.m. Ages 60-69 = 85 mL/min/1.73 sq.m. Ages 70+ = 75 mL/min/1.73 sq.m. Chronic Kidney Disease: Less than 60 mL/min/1.73 square meters End Stage Renal Disease: Less than 15 mL/min/1.73 square meters Performed By: #### C BALJINDER LINDSAY ANEU, MDW, BMP, GFR #### [address] [address] GFR Non- 66 ml/min/1.73sqm Normal [facility] [place] Comment on above: Result Comment: GFR Population mean for , Non- Americans Ages 20-29 = 116 mL/min/1.73 sq.m. Ages 30-39 = 107 mL/min/1.73 sq.m. Ages 40-49 = 99 mL/min/1.73 sq.m. Ages 50-59 = 93 mL/min/1.73 sq.m. Ages 60-69 = 85 mL/min/1.73 sq.m. Ages 70+ = 75 mL/min/1.73 sq.m. Chronic Kidney Disease: Less than 60 mL/min/1.73 square meters End Stage Renal Disease: Less than 15 mL/min/1.73 square meters Performed By: #### C BALJINDER LINDSAY ANEU, MDW, BMP, GFR #### [address] [address] .MDWon 12-01-2022 Monocyte Distribution Width 18.52 Normal 0.00-20.00 [facility] ([place] Comment on above: Result Comment: For ED adult patients suspected of sepsis, MDW<=20.0 does not rule out sepsis or risk of sepsis Performed By: #### C BALJINDER LINDSAY, YONATAN, MDW, BMP, GFR #### [address] [address] .NEUABSon 12-01-2022 Neutrophil, Absolute 4.4 10 3/mcL Normal 2.9-6.2 [facility] [place] Comment on above: Performed By: #### C BC, BALJINDER, YONATAN, MDW, BMP, GFR #### [address] [address] BMPon 12-01-2022 BUN/Creatinine Ratio 21 ratio Normal 7-27 [facility] ([place]) Comment on above: Performed By: #### C BC, ADWENDY, ANEU, MDW, BMP, GFR #### [address] [address] Calcium [Mass/Vol] 8.6 mg/dL Normal 8.4-10.2 [facility] ([place]) Comment on above: Performed By: #### C BC, ADWENDY, ANEU, MDW, BMP, GFR #### [address] [address] Chloride [Moles/Vol] 105 mmol/L Normal 98-107 [facility] ([place]) Comment on above: Performed By: #### C BC, BALJINDER, ANEU, MDW, BMP, GFR #### [address] [address] CO2 [Moles/Vol] 28 mmol/L Normal 22-29 [facility] [place] Comment on above: Performed By: #### C BC, ADIFF, ANEU, MDW, BMP, GFR #### [address] [address] Creatinine [Mass/Vol] 0.89 mg/dL Normal 0.55-1.02 [facility] ([place]) Comment on above: Performed By: #### C BC, ADIFF, ANEU, MDW, BMP, GFR #### [address] [address] Electrolyte Balance 8.0 mEq/L Normal 4.0-15.0 [facility] ([place]) Comment on above: Performed By: #### C BC, ADIFF, ANEU, MDW, BMP, GFR #### [address] [address] Glucose [Mass/Vol] 87 mg/dL Normal 70-105 [facility] ([place]) Comment on above: Performed By: #### C BALJINDER LINDSAY ANEU, MDW, BMP, GFR #### [address] [address] Potassium [Moles/Vol] 4.0 mmol/L Normal 3.5-5.1 [facility] ([place]) Comment on above: Performed By: #### C NEFTALI, YONATAN GALE, W, BMP, GFR #### [address] [address] Sodium [Moles/Vol] 141 mmol/L Normal 136-145 [facility] ([place]) Comment on above: Performed By: #### C BALJINDER LINDSAY ANEU, W, BMP, GFR #### [address] [address] Urea nitrogen [Mass/Vol] 19 mg/dL High 7-18 [facility] [place] Comment on above: Performed By: #### C BALJINDER LINDSAY ANEU, W, BMP, GFR #### [address] [address] CBCon 12-01-2022 Erythrocyte distribution width (RBC) [Ratio] 13.0 % Normal 11.5-14.5 [facility] ([place] Comment on above: Performed By: #### C BALJINDER LINDSAY ANEU, W, BMP, GFR #### [address] [address] Hematocrit (Bld) [Volume fraction] 36.8 % Low 37.0-47.0 [facility] ([place] Comment on above: Performed By: #### C BALJINDER LINDSAY ANEU, W, BMP, GFR #### [address] [address] Hgb 12.6 G/dL Normal 12.0-16.0 [facility] ([place] Comment on above: Performed By: #### C BALJINDER LINDSAY ANEU, MDW, BMP, GFR #### [address] [address] MCH (RBC) [Entitic mass] 29.7 pg Normal 27.0-31.2 [facility] [place] Comment on above: Performed By: #### C NEFTALI, BALJINDER, YONATAN, MDW, BMP, GFR #### [address] [address] MCHC 34.1 G/dL Normal 33.0-37.0 [facility] [place] Comment on above: Performed By: #### C BC, BALJINDER, ANEU, MDW, BMP, GFR #### [address] [address] MCV (RBC) [Entitic vol] 87.2 fL Normal 80.0-94.0 [facility] [place] Comment on above: Performed By: #### C NEFTALI, BALJINDER, YONATAN, MDW, BMP, GFR #### [place] [id number] Platelet 244 10 3/mcL Normal 130-400 [facility] [place] Comment on above: Performed By: #### C NEFTALI, BALJINDER, YONATAN, MDW, BMP, GFR #### [address] [address] Platelet mean volume (Bld) [Entitic vol] 6.7 fL Low 7.4-10.4 [facility] ([place] Comment on above: Performed By: #### C NEFTALI, BALJINDER, ANEU, MDW, BMP, GFR #### [address] [address] RBC 4.22 10 6/mcL Normal 4.20-5.40 [facility] ([place] Comment on above: Performed By: #### C BC, BALJINDER, ANEU, MDW, BMP, GFR #### [address] [address] WBC 6.3 10 3/mcL Normal 4.6-10.8 [facility] ([place] Comment on above: Performed By: #### C BC, BALJINDER, ANEU, MDW, BMP, GFR #### [place] [address] [place], [place] [address] CT HEAD OR BRAIN W/O CONTRAS Ton 12-01-2022 CT HEAD OR BRAIN W/O CONTRAST ORIGINAL EXAMINATION: CT OF THE HEAD WITHOUT CONTRAST 12/01/2022 5:54 pm TECHNIQUE: CT of the head was performed without the administration of intravenous contrast. Automated exposure control, iterative reconstruction, and/or weight based adjustment of the mA/kV was utilized to reduce the radiation dose to as low as reasonably achievable. COMPARISON: None. HISTORY: ORDERING SYSTEM PROVIDED HISTORY: Reason for Exam: fall FINDINGS: BRAIN/VENTRICLES: There is no acute intracranial hemorrhage, mass effect or midline shift. No abnormal extra-axial fluid collection. The mclaughlin-white differentiation is maintained without evidence of an acute infarct. There is no evidence of hydrocephalus. ORBITS: The visualized portion of the orbits demonstrate no acute abnormality. SINUSES: The visualized paranasal sinuses and mastoid air cells demonstrate no acute abnormality. SOFT TISSUES/SKULL: No acute abnormality of the visualized skull or soft tissues. IMPRESSION: No acute intracranial abnormality. RECOMMENDATIONS: Unavailable Interpreted by: Shanika Smith Preliminary Report By: Shanika Smith Electronically signed By Shanika Smith Dictated Date: 12/01/2022 5:56:57 PM Prelim Date: 12/01/2022 5:57:36 PM Sign Date: 12/01/2022 5:57:36 PM Ordering Provider: SCOOTER [facility] ([place]) CT SPINE CERVICAL W/O TIA Flowers 12-01-2022 CT SPINE CERVICAL W/O CONTRAST ORIGINAL EXAMINATION: CT OF THE CERVICAL SPINE WITHOUT CONTRAST 12/01/2022 5:55 pm TECHNIQUE: CT of the cervical spine was performed without the administration of intravenous contrast. Multiplanar reformatted images are provided for review. Automated exposure control, iterative reconstruction, and/or weight based adjustment of the mA/kV was utilized to reduce the radiation dose to as low as reasonably achievable. COMPARISON: None. HISTORY: ORDERING SYSTEM PROVIDED HISTORY: Reason for Exam: fall FINDINGS: BONES/ALIGNMENT: There is no acute fracture or traumatic malalignment. DEGENERATIVE CHANGES: No significant degenerative changes. SOFT TISSUES: There is no prevertebral soft tissue swelling. IMPRESSION: No acute abnormality of the cervical spine. RECOMMENDATIONS: Unavailable Interpreted by: Osbaldo North Preliminary Report By: Osbaldo North Electronically signed By Osbaldo North Dictated Date: 12/01/2022 6:06:31 PM Prelim Date: 12/01/2022 6:07:24 PM Sign Date: 12/01/2022 6:07:24 PM Ordering Provider: SCOOTER BAILEY [facility] ([place]) LABORATORYOrdered By: Anna Petty on 12-01-2022 Appearance (U) Clear (12/01/22 6:49 PM) Invalid Interpretation Code Clear AO Auto Urine SS Bilirubin Ql (U) Negative (12/01/22 6:49 PM) Invalid Interpretation Code Negative AO Auto Urine SS Color (U) Yellow (12/01/22 6:49 PM) Invalid Interpretation Code AO Auto Urine SS Glucose Test strip (U) [Mass/Vol] Negative Invalid Interpretation Code Negativemg /dL AO Auto Urine SS Hemoglobin Auto test strip (U) [Mass/Vol] Negative (12/01/22 6:49 PM) Invalid Interpretation Code Negative AO Auto Urine SS Ketones Ql (U) Negative Invalid Interpretation Code Negativemg /dL AO Auto Urine SS UA Leuk Est Negative (12/01/22 6:49 PM) Invalid Interpretation Code Negative AO Auto Urine SS UA Nitrite Negative (12/01/22 6:49 PM) Invalid Interpretation Code Negative AO Auto Urine SS UA pH 7.0 (12/01/22 6:49 PM) Invalid Interpretation Code 5.0 - 8.0 AO Auto Urine SS UA Protein Negative Invalid Interpretation Code Negativemg /dL AO Auto Urine SS UA Spec Grav 1.015 (12/01/22 6:49 PM) Invalid Interpretation Code 1.015-1.02 5 AO Auto Urine SS UA Specimen Type Not Given (12/01/22 6:49 PM) Invalid Interpretation Code AO Auto Urine SS UA Urobilinogen 0.2 E.U./dL Invalid Interpretation Code 0.2-1.0E.U ./dL AO Auto Urine SS LABORATORYOrdered By: SYSTEM SYSTEM on 12-01-2022 Basophil, Absolute 0.0 103/mcL Invalid Interpretation Code 0.0 - 0.2 10^3/mcL AO Workflow SS Basophils/100 WBC (Bld) 0.5 % Invalid Interpretation Code 0.0 - 2.5 % AO Workflow SS Calcium [Mass/Vol] 8.6 mg/dL Invalid Interpretation Code 8.4 - 10.2 mg/dL AO ADM SS Chloride [Moles/Vol] 105 mmol/L Invalid Interpretation Code 98 - 107 mmol/L AO ADM SS CO2 [Moles/Vol] 28 mmol/L Invalid Interpretation Code 22 - 29 mmol/L AO ADM SS Creatinine [Mass/Vol] 0.89 mg/dL Invalid Interpretation Code 0.55 - 1.02 mg/dL AO ADM SS Electrolyte Balance 8.0 mEq/L Invalid Interpretation Code 4.0 - 15.0 mEq/L AO ADM SS Eosinophil, Absolute 0.2 103/mcL Invalid Interpretation Code 0.0 - 0.4 10^3/mcL AO Workflow SS Eosinophils/100 WBC (Bld) 2.7 % Invalid Interpretation Code 0.0 - 7.0 % AO Workflow SS Erythrocyte distribution width (RBC) [Ratio] 13.0 % Invalid Interpretation Code 11.5 - 14.5 % AO Workflow SS GFR/1.73 sq M.predicted among blacks MDRD (S/P/Bld) [Vol rate/Area] 80 ml/min/1.73sqm Invalid Interpretation Code AO Chemistry S GFR/1.73 sq M.predicted among non-blacks MDRD (S/P/Bld) [Vol rate/Area] 66 ml/min/1.73sqm Invalid Interpretation Code AO Chemistry S Glucose [Mass/Vol] 87 mg/dL Invalid Interpretation Code 70 - 105 mg/dL AO ADM SS Hematocrit (Bld) [Volume fraction] 36.8 % Invalid Interpretation Code 37.0 - 47.0 % AO Workflow SS Hemoglobin (Bld) [Mass/Vol] 12.6 G/dL Invalid Interpretation Code 12.0 - 16.0 G/dL AO Workflow SS Lymphocyte, Absolute 1.1 103/mcL Invalid Interpretation Code 0.8 - 3.9 10^3/mcL AO Workflow SS Lymphocytes/100 WBC (Bld) 17.6 % Invalid Interpretation Code 10.0 - 50.0 % AO Workflow SS MCH (RBC) [Entitic mass] 29.7 pg Invalid Interpretation Code 27.0 - 31.2 pg AO Workflow SS MCHC 34.1 G/dL Invalid Interpretation Code 33.0 - 37.0 G/dL AO Workflow SS MCV (RBC) [Entitic vol] 87.2 fL Invalid Interpretation Code 80.0 - 94.0 fL AO Workflow SS Monocyte distribution width Auto (Bld) [Entitic vol] 18.52 Invalid Interpretation Code 0.00 - 20.00 AO Workflow SS Comment on above: Result Comment: For ED adult patients suspected of sepsis, MDW<=20.0 does not rule out sepsis or risk of sepsis Monocyte, Absolute 0.6 103/mcL Invalid Interpretation Code 0.2 - 1.0 10^3/mcL AO Workflow SS Monocytes/100 WBC (Bld) 9.7 % Invalid Interpretation Code 1.7 - 13.0 % AO Workflow SS Neutrophil, Absolute 4.4 103/mcL Invalid Interpretation Code 2.9 - 6.2 10^3/mcL AO Workflow SS Neutrophils/100 WBC (Bld) 69.5 % Invalid Interpretation Code 37.0 - 80.0 % AO Workflow SS Platelet mean volume (Bld) [Entitic vol] 6.7 fL Invalid Interpretation Code 7.4 - 10.4 fL AO Workflow SS Platelets (Bld) [#/Vol] 244 103/mcL Invalid Interpretation Code 130 - 400 10^3/mcL AO Workflow SS Potassium [Moles/Vol] 4.0 mmol/L Invalid Interpretation Code 3.5 - 5.1 mmol/L AO ADM SS RBC (Bld) [#/Vol] 4.22 106/mcL Invalid Interpretation Code 4.20 - 5.40 10^6/mcL AO Workflow SS Sodium [Moles/Vol] 141 mmol/L Invalid Interpretation Code 136 - 145 mmol/L AO ADM SS Urea nitrogen [Mass/Vol] 19 mg/dL Invalid Interpretation Code 7 - 18 mg/dL AO ADM SS Urea nitrogen/Creatinine [Mass ratio] 21 ratio Invalid Interpretation Code 7 - 27 ratio AO ADM SS WBC (Bld) [#/Vol] 6.3 103/mcL Invalid Interpretation Code 4.6 - 10.8 10^3/mcL AO Workflow SS UAon 12-01-2022 Color (U) Yellow Normal [facility] [place] Comment on above: Performed By: #### U A #### [address] [address] Glucose (U) [Mass/Vol] Negative Normal Negative [facility]) Comment on above: Performed By: #### U A #### [address] [address] Ketones Ql (U) Negative Normal Negative [facility] ([place]) Comment on above: Performed By: #### U A #### [address] [address] UA Appear Clear Normal Clear [facility] [place] Comment on above: Performed By: #### U A #### [place] [address] [address] UA Blood Negative Normal Negative [facility] [place] Comment on above: Performed By: #### U A #### [place] [address] [address] UA Leuk Est Negative Normal Negative [facility] [place] Comment on above: Performed By: #### U A #### [place] [address] UA Nitrite Negative Normal Negative [facility] [place] Comment on above: Performed By: #### U A #### [place] [address] UA pH 7.0 Normal 5.0 - 8.0 [facility] [place] Comment on above: Performed By: #### U A #### [address] [address] UA Protein Negative Normal Negative [facility] [place] Comment on above: Performed By: #### U A #### [place] [address] UA Spec Grav 1.015 Normal 1.015-1.02 5 [facility] [place] Comment on above: Performed By: #### U A #### [place] [address] UA Specimen Type Not Given [facility] [place] Comment on [place]: Performed By: #### U A #### [place] [address] UA Urobilinogen 0.2 E.U./dL Normal 0.2-1.0 [facility] [place] Comment on [place]: Performed By: #### U A #### [place] [address] Urobilinogen (U) [Mass/Vol] Negative Normal [facility] [place] Comment on above: Performed By: #### U A #### [place] [address] [address] DS 11-30-2022 [facility] HNO ID: [id number] Author: Sonia Smith PA-C Service: Neurology Adult Epilepsy Author Type: Physician Van Cdl Driver Type: Discharge Summary Filed: 11/30/2022 8:50 AM Note Text: Attestation signed by Ivett Agudelo MD at 12/01/2022 8:55 AM Reviewed and agree. Ivett Agudelo MD December 01, 2022 8:55 AM DISCHARGE SUMMARY PATIENT NAME: Vidya aFn ADMISSION DATE: 11/26/2022 DISCHARGE DATE: 11/30/2022 ADMITTING SERVICE: Epilepsy ATTENDING PHYSICIAN: Ivett Agudelo MD Code Status: Not on file Referring/Secondary Physician: Dr. Stanley Highest Readmission Risk Score: 14 The 30 day readmissions risk score is derived from an internally validated risk model which evaluates patient level characteristics, utilization history, medication orders and lab results up until the day of discharge. Patients with a score of 40 or above are considered highest risk for readmission. Specific patient level drivers will be listed at the bottom of the summary. The 30 day readmissions risk score is derived from an internally validated risk model which evaluates patient level characteristics, utilization history, medication orders and lab results up until the day of discharge. Patients with a score of 40 or above are considered highest risk for readmission. Specific patient level drivers will be listed at the bottom of the summary. REASON FOR HOSPITALIZATION: Diagnosis of Events IMPORTANT TESTS AND PROCEDURES: Continuous Video EEG HOSPITAL COURSE: Vidya Fan is a 57 year old female who presented to the [facility] on 11/26/2022 for diagnosis of seizure-like activity. Medications were continued during the admission. Patient noted to have a few typical visual hallucinations without EEG change. Due to the lack of EEG changes, visual hallucinations are not epileptic in nature. Please see separate video-EEG report for details. Patient had abdominal pain during admission and AST/ALT were mildly elevated. A RUQ ultrasound was performed and revealed cholelithiasis without secondary signs of acute cholecystitis and a 1.2 cm right hepatic lobe lesion, most commonly a benign hemangioma. We will consult general surgery for outpatient evaluation of cholelithiasis. Prior to discharge, medications were continued at home dosing without changes: LTG 200mg BID for mood disorders. Advise follow up with mental health providers for continued management. Principal Problem: Seizure-like activity (HCC) POA: Yes Active Problems: Transaminitis POA: Yes Visual hallucinations POA: Yes Depression POA: Yes Anxiety POA: Yes Schizoaffective disorder (HCC) POA: Yes Bipolar disorder (HCC) POA: Yes OCD (obsessive compulsive disorder) POA: Yes Migraines POA: Yes Tremor, unspecified POA: Yes Cholelithiasis POA: Yes Resolved Problems: * No resolved hospital problems. * Transitions of Care Critical Issues: SPECIALIST FOLLOW-UP: General Surgery follow up LABS AND PROCEDURES PENDING AT DISCHARGE: Finalized Video EEG Report CONSULTING TEAMS DURING HOSPITALIZATION: Social Work: LUIS ALFREDO Colin Treatment Team: Attending Provider: Dr. Ivett Agudelo MD PATIENT CONDITION AT DISCHARGE: Stable DISCHARGE DISPOSITION: Retirement Facility Discharge Physical Exam: VITAL SIGNS: BP 113/68 Pulse (!) 55 Temp 36.7 ?C (98.1 ?F) (Oral) Resp 16 Ht 165.1 cm (5' 5) Wt 69.5 kg (153 lb 3.5 oz) SpO2 95% BMI 25.50 kg/m? GENERAL: Alert, no distress, cooperative LUNGS: Lungs clear to auscultation, Good diaphragmatic excursion CARDIAC: Normal S1 and S2; no rubs, murmurs, or gallops Mental Status: Alert and oriented to person, place and time. Able to follow 1 and 2 step commands. Cranial Nerves: Pupils equal and reactive to light, extraocular muscles intact. No nystagmus, face movements symmetric. Motor: Moves all extremities equally. Strength equal in bilateral extremities. Sensation: Intact to light touch on face, upper and lower extremities. Coordination: No dysmetria BRENDA intact Gait exam deferred INFORMATION PROVIDED TO PATIENT: DIET: Resume pre-hospital diet ACTIVITY: Safety Precautions: no bathing or swimming unsupervised, no driving, no use of heavy machinery, no use of sharp moving objects (i.e. power tools), avoid heights. ALLERGIES Allergen Reactions Sulfa (Sulfonamide * Rash Zoloft [Sertraline] Other: See Comments Dizziness DISCHARGE MEDICATION: Medication List CONTINUE taking these medications acetaminophen 500 mg tablet Commonly known as: TYLENOL benztropine 0.5 mg tablet Commonly known as: COGENTIN calcium-vitamin D3-magnesium 200 mg calcium- 1.25 mcg Cap COQ10 SG 100 ORAL EXCEDRIN TENSION HEADACHE 500-65 mg tablet Generic drug: acetaminophen-caffeine * FLUoxetine 20 mg capsule Commonly kno (more content not included)... Normal [facility] Hepatic function 2000 panelo n 11-30-2022 Albumin [Mass/Vol] 4.0 g/dL Normal 3.9-4.9 [facility] Comment on above: Order Comment: Speci men Type: BLOOD SPECIMENOrdering Facility: [facility] Address: [address] [place] [address] Performed By: #### 2 4325-3 ####[facility] LABCLIA [id number] [place] [address] [place] [facility] ALP [Catalytic activity/Vol] 91 U/L Normal 34-123 [facility] Comment on above: Order Comment: Speci men Type: BLOOD SPECIMENOrdering Facility: [facility] Address: [address] [place] [address] Performed By: #### 2 4325-3 ####[facility] LABCLIA [id number] [place] [address] [place] ALT [Catalytic activity/Vol] 50 U/L High 7-38 [facility] Comment on above: Order Comment: Speci men Type: BLOOD SPECIMENOrdering Facility: [facility] Address: [address] [place] [address] Performed By: #### 2 4325-3 ####[facility] LABCLIA [id number] [place] [address] [place] AST [Catalytic activity/Vol] 22 U/L Normal 13-35 [facility] Comment on above: Order Comment: Speci men Type: BLOOD SPECIMENOrdering Facility: [facility] Address: [address] [place] [address] Performed By: #### 2 4325-3 ####[facility] LABCLIA [id number] [place] [address] [place] Bilirubin [Mass/Vol] 0.4 mg/dL Normal 0.2-1.3 [facility] Comment on above: Order Comment: Speci men Type: BLOOD SPECIMENOrdering Facility: [facility] Address: [address] [place] [address] Performed By: #### 2 4325-3 ####[facility] LABCLIA [id number] [place] [address] [place] Bilirubin.conjugated [Mass/Vol] mg/dL Normal <0.2 [facility] Comment on above: Order Comment: Speci men Type: BLOOD SPECIMENOrdering Facility: [facility] Address: [address] Performed By: #### 2 4325-3 ####[facility] LABCLIA [id number] [place] [address] [place] Protein [Mass/Vol] 6.7 g/dL Normal 6.3-8.0 [facility] Comment on above: Order Comment: Speci men Type: BLOOD SPECIMENOrdering Facility: [facility] Address: [address] Performed By: #### 2 4325-3 ####[facility] LABCLIA [id number] [address] [address] [place] NURSING PROGon 11-30-2022 NURSING PROG HNO ID: [id number] Author: Margoth Elias RN Service: Nursing Author Type: Registered Nurse Type: Nursing Progress Note Filed: 11/30/2022 11:52 AM Note Text: 1148: Patient discharged to [facility] at this time. Discharge instructions reviewed and provided to nurse Mireles. Medications and changes reviewed with nurse Mireles. Safety precautions reviewed with nurse. IV removed, patient confirmed receipt of all belongings. Patient transported off unit via stretcher by [facility] in stable condition to [facility] in stable condition. Normal [facility] CASE MGT INIT ASSESon 2022 CASE MGT INIT ASSES HNO ID: [id number] Author: LUIS ALFREDO Colin Service: Social Work Author Type: Cook Larder Type: Care Mgt Initial Assessment Filed: 11/29/2022 3:56 PM Note Text: CARE MANAGEMENT: ASSESSMENT AND DISCHARGE PLAN SERVICE DATE: November 29, 2022 SERVICE TIME: 3:20pm PCP: No primary care provider on file. Primary Contact: Extended Emergency Contact Information Primary Emergency Contact: ADINA HOWELL Mobile Relation: Other Admission Status: Inpatient Insurance Provider: [facility] Discharge Planning requested by: Per Department Practice Potential Transition Plans Retirement Facility/Intermediate Care Facility Advance Directives Current Advance Directive: Health Care Power of Demonstrator Sewing Techniques In Chart: No Current Living Arrangements and Support Lives with: Other person(s) Residents at group home Type of Residence: Retirement Facility Care Facility Name: [facility] Support: Evangelical/jennifer community How do you manage to accomplish the following: Independent: Ambulation;Bathe/Shower;Lv ss;Going to the bathroom Needs Assistance: Meals/Meal Prep;Medication Management;Transportation to appointments/community Current Services/Equipment Current Post-Acute Service(s): Skilled Home Care Discharge Planning Patient Goal(s): The patient/family expressed post-acute services are not needed at this time. [place] of Choice Explained: [place] of Choice Given: Yes Level of Care Discussed: Retirement Facility Are you interested in bedside delivery of your medications? No Discharge Planning Participant(s): Patient Patient/Family Comments: Caregiver Assessment: Caregiver is ready, willing and able to meet the patient's needs as recommended by the inter-professional team: Yes Name of Caregiver: Rojas Grace Transport at Discharge: Transportation Arrangements: Ambulance Transportation Agency and Phone #:: [facility] [phone] Date of Trip: 11/30/22 Time of Trip: 1030 Type of Service: BLS Non-emergency Is Patient Medicaid Pending?: No Accelerator Systems Director Location: [facility] Destination: [facility] Financial Care Management Responsibility: None Needs Prior to Discharge: Needs Prior to Discharge: None Post-Acute Discharge Plan: Return to [facility] Patient is a 57 year old female with a past medical history of schizoaffective disorder, bipolar disorder, OCD, depression, anxiety and hallucinations admitted for diagnostic evaluation. 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 No prior EEG or MRI brain available for review. Currently taking LTG 200mg BID for bipolar disorder. Patient admitted from [facility]. SW made referral back to [facility] who indicates patient is a rn long term care resident and agreeable to accept patient back. Patient to be ready for DC tomorrow[facility] for [facility] for return. Patient receives psychiatric care from a psychiatry provider through [facility]. Prior to [facility], patient was at a psychiatric facility prior to transfer to [facility]. Patient's healthcare power of employment attorney is Mami Howell (member of patient's mormonism). SILVINO met with patient at bedside who confirms plan to return to [facility] at time of DC. She is limitedly engaged in conversation with this mortgage loan underwriter but is tangential in beginning to discuss her relationships with her mormonism members when SILVINO attempts to discuss plan to return to [facility]. Patient denies any additional needs and is agreeable to return to [facility]. Transport arranged for 10:30am tomorrow through [facility]. SW will continue to follow as needed. SIGNATURE: LUIS ALFREDO Colin PATIENT NAME: Vidya Fan DATE: November 29, 2022 TIME: 3:40 PM CONTACT #: [id number] Normal [facility] Hepatic function 2000 panelo n 11-29-2022 Albumin [Mass/Vol] 3.8 g/dL Low 3.9-4.9 [facility] Comment on above: Order Comment: Speci men Type: BLOOD SPECIMENOrdering Facility: [facility] Address: [address] [place] [address] Performed By: #### 2 4325-3 ####[facility] LABCLIA [id number] [place] [address] [place] ALP [Catalytic activity/Vol] 94 U/L Normal 34-123 [facility] Comment on above: Order Comment: Speci men Type: BLOOD SPECIMENOrdering Facility: [facility] Address: [address] [place] [address] Performed By: #### 2 4325-3 ####[facility] LABCLIA [id number] [place] [address] [place] ALT [Catalytic activity/Vol] 65 U/L High 7-38 [facility] Comment on above: Order Comment: Speci men Type: BLOOD SPECIMENOrdering Facility: [facility] Address: [address] [place] [address] Performed By: #### 2 4325-3 ####[facility] LABCLIA [id number] [place] [address] [place] AST [Catalytic activity/Vol] 28 U/L Normal 13-35 [facility] Comment on above: Order Comment: Speci men Type: BLOOD SPECIMENOrdering Facility: [facility] Address: [address] [place] [address] Performed By: #### 2 4325-3 ####[facility] LABCLIA [id number] [place] [address] [place] Bilirubin [Mass/Vol] 0.4 mg/dL Normal 0.2-1.3 [facility] Comment on above: Order Comment: Speci men Type: BLOOD SPECIMENOrdering Facility: [facility] Address: [address] Performed By: #### 2 4325-3 ####[facility] LABCLIA [id number] [place] [address] [place] Bilirubin.conjugated [Mass/Vol] mg/dL Normal <0.2 [facility] Comment on above: Order Comment: Speci men Type: BLOOD SPECIMENOrdering Facility: [facility] Address: [address] Performed By: #### 2 4325-3 ####[facility] LABCLIA [id number] [place] [address] [place] Protein [Mass/Vol] 6.6 g/dL Normal 6.3-8.0 [facility] Comment on above: Order Comment: Speci men Type: BLOOD SPECIMENOrdering Facility: [facility] Address: [address] Performed By: #### 2 4325-3 ####[facility] LABCLIA [id number] [place] [address] [place] Hepatic function 2000 panelo n 11-28-2022 Albumin [Mass/Vol] 3.9 g/dL Normal 3.9-4.9 [facility] Comment on above: Order Comment: Speci men Type: BLOOD SPECIMENOrdering Facility: [facility] Address: [address] [place] [address] Performed By: #### 2 4325-3 ####[facility] LABCLIA [id number] [place] [address] [place] ALP [Catalytic activity/Vol] 97 U/L Normal 34-123 [facility] Comment on above: Order Comment: Speci men Type: BLOOD SPECIMENOrdering Facility: [facility] Address: [address] Performed By: #### 2 4325-3 ####[facility] LABCLIA [id number] [place] [address] [place] ALT [Catalytic activity/Vol] 72 U/L High 7-38 [facility] Comment on above: Order Comment: Speci men Type: BLOOD SPECIMENOrdering Facility: [facility] Address: [address] [place] [address] Performed By: #### 2 4325-3 ####[facility] LABCLIA [id number] [place] [address] [place] AST [Catalytic activity/Vol] 31 U/L Normal 13-35 [facility] Comment on above: Order Comment: Speci men Type: BLOOD SPECIMENOrdering Facility: [facility] Address: [address] [place] [address] Performed By: #### 2 4325-3 ####[facility] LABCLIA [id number] [place] [address] [place] Bilirubin [Mass/Vol] 0.5 mg/dL Normal 0.2-1.3 [facility] Comment on above: Order Comment: Speci men Type: BLOOD SPECIMENOrdering Facility: [facility] Address: [address] [place] [address] Performed By: #### 2 4325-3 ####[facility] LABCLIA [id number] [place] [address] [place] Bilirubin.conjugated [Mass/Vol] 0.2 mg/dL High <0.2 [facility] Comment on above: Order Comment: Speci men Type: BLOOD SPECIMENOrdering Facility: [facility] Address: [address] [place] [address] Performed By: #### 2 4325-3 ####[facility] LABCLIA [id number] [place] [address] [place] Protein [Mass/Vol] 6.8 g/dL Normal 6.3-8.0 [facility] Comment on above: Order Comment: Speci men Type: BLOOD SPECIMENOrdering Facility: [facility] Address: [address] [place] [address] Performed By: #### 2 4325-3 ####[facility] LABCLIA [id number] [place] [address] [place] Hepatic function 2000 panelo n 11-27-2022 Albumin [Mass/Vol] 3.9 g/dL Normal 3.9-4.9 [facility] Comment on above: Order Comment: Speci men Type: BLOOD SPECIMENOrdering Facility: [facility] Address: [address] [place] [address] Performed By: #### 2 4325-3 ####[facility] LABCLIA [id number] [place] [address] [place] ALP [Catalytic activity/Vol] 98 U/L Normal 34-123 [facility] Comment on above: Order Comment: Speci men Type: BLOOD SPECIMENOrdering Facility: [facility] Address: [address] Performed By: #### 2 4325-3 ####[facility] LABCLIA [id number] [place] [address] [place] ALT [Catalytic activity/Vol] 80 U/L High 7-38 [facility] Comment on above: Order Comment: Speci men Type: BLOOD SPECIMENOrdering Facility: [facility] Address: [address] Performed By: #### 2 4325-3 ####[facility] LABCLIA [id number] [place] [address] [place] AST [Catalytic activity/Vol] 40 U/L High 13-35 [facility] Comment on above: Order Comment: Speci men Type: BLOOD SPECIMENOrdering Facility: [facility] Address: [address] Performed By: #### 2 4325-3 ####[facility] LABCLIA [id number] [address] [place] Bilirubin [Mass/Vol] 0.6 mg/dL Normal 0.2-1.3 [facility] Comment on above: Order Comment: Speci men Type: BLOOD SPECIMENOrdering Facility: [facility] Address: [address] [place] [address] Performed By: #### 2 4325-3 ####[facility] LABIA [id number] [address] [place] Bilirubin.conjugated [Mass/Vol] mg/dL Normal <0.2 [facility] Comment on above: Order Comment: Speci men Type: BLOOD SPECIMENOrdering Facility: [facility] Address: [address] [place] [address] Performed By: #### 2 4325-3 ####[facility] LABIA [id number] [address] [place] [facility] Protein [Mass/Vol] 6.7 g/dL Normal 6.3-8.0 [facility] Comment on above: Order Comment: Speci men Type: BLOOD SPECIMENOrdering Facility: [facility] Address: [address] [place] [address] Performed By: #### 2 4325-3 ####[facility] LABIA [id number] [place] [address] [place] US ABD RIGHT UPPER QUADRANTo n 11-27-2022 US ABD RIGHT UPPER QUADRANT * * *Final Report* * * DATE OF EXAM: Nov 27 2022 4:13PM [facility] 1032 - US ABD RIGHT UPPER QUADRANT / PROCEDURE REASON: Abn liver function tests (LFTs) * * * * Physician Interpretation * * * * EXAMINATION: RIGHT UPPER QUADRANT ULTRASOUND CLINICAL HISTORY: Elevated LFTs. TECHNIQUE: Sonography of the right upper quadrant was performed. Images were obtained and stored in a permanent archive. MQ: URUQ_2 COMPARISON: None. RESULT: Pancreas: Normal sonographic appearance where visualized. Portions obscured: Tail. Liver: Echotexture: Normal, homogeneous. Echogenicity: Normal Surface contour: Smooth Lesions: 1.2 cm well-defined, echogenic right hepatic lobe lesion. Biliary: No intrahepatic biliary duct dilation. CBD: 0.4 cm at the hilum. Gallbladder: -Contents: Cholelithiasis (echogenic, shadowing from the gallbladder fossa related to gallbladder filled with stones and mildly limiting assessment) -Wall: Normal -Other: No pericholecystic fluid. Negative sonographic Castorena's sign. Right Kidney: No hydronephrosis. 0.4 cm echogenic focus in the lower pole could reflect nonobstructing calculus versus vascular; poorly shadowing and without focal Doppler artifact. Ascites: None. IMPRESSION: Cholelithiasis without secondary signs of acute cholecystitis. 1.2 cm right hepatic lobe lesion, most commonly a benign hemangioma. Musical String Maker: ERUM Transcribe Date/Time: Nov 27 2022 4:31P Dictated by : PEMA JONES DO This examination was interpreted and the report reviewed and electronically signed by: OSBALDO COPELAND DO on Nov 27 2022 5:07PM EST [id number] Normal [facility] CBC W Auto Differential pane l (Bld)on 11-26-2022 Basophils (Bld) [#/Vol] 0.04 10*3/uL Normal <0.11 [facility] Comment on above: Order Comment: Speci sadia Type: BLOOD SPECIMENOrdering Facility: [facility] Address: [address] [address] Performed By: #### 5 7021-8 ####[facility] LABCLIA [id number] [place] [address] [place] Basophils/100 WBC (Bld) 0.6 % Normal [facility] Comment on above: Order Comment: Lawsoni sadia Type: BLOOD SPECIMENOrdering Facility: [facility] Address: [address] [address] Performed By: #### 5 7021-8 ####[facility] LABIA [id number] [address] [place] Differential cell count method Nom (Bld) Auto Normal [facility] Comment on above: Order Comment: Speci men Type: BLOOD SPECIMENOrdering Facility: [facility] Address: [address] [place] [address] Performed By: #### 5 7021-8 ####[facility] LABCLIA [id number] [place] [address] [place] Eosinophils (Bld) [#/Vol] 0.17 10*3/uL Normal <0.46 [facility] Comment on above: Order Comment: Speci men Type: BLOOD SPECIMENOrdering Facility: [facility] Address: [address] [place] [address] Performed By: #### 5 7021-8 ####[facility] LABIA [id number] [address] [place] Eosinophils/100 WBC (Bld) 2.4 % Normal [facility] Comment on above: Order Comment: Speci men Type: BLOOD SPECIMENOrdering Facility: [facility] Address: [address] [place], [place] [address] Performed By: #### 5 7021-8 ####[facility] LABIA [id number] [place] [address] [place] Erythrocyte distribution width (RBC) [Ratio] 12.1 % Normal 11.5-15.0 [facility] Comment on above: Order Comment: Speci men Type: BLOOD SPECIMENOrdering Facility: [facility] Address: [address] [place] [place] [address] Performed By: #### 5 7021-8 ####[facility] LABCLIA [id number] [place] [address] [place] Hematocrit (Bld) [Volume fraction] 38.4 % Normal 36.0-46.0 [facility] Comment on above: Order Comment: Speci men Type: BLOOD SPECIMENOrdering Facility: [facility] Address: [address] Performed By: #### 5 7021-8 ####[facility] LABCLIA [id number] [place] [address] [place] Hemoglobin (Bld) [Mass/Vol] 13.2 g/dL Normal 11.5-15.5 [facility] Comment on above: Order Comment: Speci men Type: BLOOD SPECIMENOrdering Facility: [facility] Address: [address] Performed By: #### 5 7021-8 ####[facility] LABCLIA [id number] [place] [address] [place] Immature granulocytes (Bld) [#/Vol] 10*3/uL Normal <0.10 [facility] Comment on above: Order Comment: Speci men Type: BLOOD SPECIMENOrdering Facility: [facility] Address: [address] Performed By: #### 5 7021-8 ####[facility] LABIA [id number] [place] [address] [place] Immature granulocytes/100 WBC (Bld) 0.1 % Normal [facility] Comment on above: Order Comment: Speci men Type: BLOOD SPECIMENOrdering Facility: [facility] Address: [address] Performed By: #### 5 7021-8 ####[facility] LABCLIA [id number] [place] [address] [place] Lymphocytes (Bld) [#/Vol] 1.55 10*3/uL Normal 1.00-4.00 [facility] Comment on above: Order Comment: Speci men Type: BLOOD SPECIMENOrdering Facility: [facility] Address: [address] Performed By: #### 5 7021-8 ####[facility] LABCLIA [id number] [address] [place] Lymphocytes/100 WBC (Bld) 21.8 % Normal [facility] Comment on above: Order Comment: Speci men Type: BLOOD SPECIMENOrdering Facility: [facility] Address: [address] [place] [address] Performed By: #### 5 7021-8 ####[facility] LABIA [id number] [address] [place] [facility] MCH (RBC) [Entitic mass] 30.1 pg Normal 26.0-34.0 [facility] Comment on above: Order Comment: Speci men Type: BLOOD SPECIMENOrdering Facility: [facility] Address: [address] [place] [address] Performed By: #### 5 7021-8 ####[facility] LABIA [id number] [address] [place] MCHC (RBC) [Mass/Vol] 34.4 g/dL Normal 30.5-36.0 [facility] Comment on above: Order Comment: Speci men Type: BLOOD SPECIMENOrdering Facility: [facility] Address: [address] [place], [place] [address] Performed By: #### 5 7021-8 ####[facility] LABIA [id number] [place] [address] [place] MCV (RBC) [Entitic vol] 87.5 fL Normal 80.0-100.0 [facility] Comment on above: Order Comment: Speci men Type: BLOOD SPECIMENOrdering Facility: [facility] Address: [address] [place], [place] [address] Performed By: #### 5 7021-8 ####[facility] LABCLIA [id number] [place] [address] [place] Monocytes (Bld) [#/Vol] 0.61 10*3/uL Normal <0.87 [facility] Comment on above: Order Comment: Speci men Type: BLOOD SPECIMENOrdering Facility: [facility] Address: [address] Performed By: #### 5 7021-8 ####[facility] LABCLIA [id number] [place] [address] [place] Monocytes/100 WBC (Bld) 8.6 % Normal [facility] Comment on above: Order Comment: Speci men Type: BLOOD SPECIMENOrdering Facility: [facility] Address: [address] Performed By: #### 5 7021-8 ####[facility] LABIA [id number] [place] [address] [place] Neutrophils (Bld) [#/Vol] 4.73 10*3/uL Normal 1.45-7.50 [facility] Comment on above: Order Comment: Speci men Type: BLOOD SPECIMENOrdering Facility: [facility] Address: [address] Performed By: #### 5 7021-8 ####[facility] LABIA [id number] [place] [address] [place] Neutrophils/100 WBC (Bld) 66.5 % Normal [facility] Comment on above: Order Comment: Speci men Type: BLOOD SPECIMENOrdering Facility: [facility] Address: [address] [place] [address] Performed By: #### 5 7021-8 ####[facility] LABIA [id number] [place] [address] [place] Nucleated RBC (Bld) [#/Vol] 10*3/uL Normal <0.01 [facility] Comment on above: Order Comment: Speci men Type: BLOOD SPECIMENOrdering Facility: [facility] Address: [address] [place] [address] Performed By: #### 5 7021-8 ####[facility] LABIA [id number] [place] [address] [place] Nucleated RBC/100 WBC (Bld) [Ratio] 0.0 /100 WBC Normal [facility] Comment on above: Order Comment: Speci men Type: BLOOD SPECIMENOrdering Facility: [facility] Address: [address] [place] [address] Performed By: #### 5 7021-8 ####[facility] LABIA [id number] [place] [address] [place] Platelet mean volume (Bld) [Entitic vol] 8.6 fL Low 9.0-12.7 [facility] Comment on above: Order Comment: Speci men Type: BLOOD SPECIMENOrdering Facility: [facility] Address: [address] [place] [address] Performed By: #### 5 7021-8 ####[facility] LABIA [id number] [place] [address] [place] Platelets (Bld) [#/Vol] 232 10*3/uL Normal 150-400 [facility] Comment on above: Order Comment: Speci men Type: BLOOD SPECIMENOrdering Facility: [facility] Address: [address] [place] [address] Performed By: #### 5 7021-8 ####[facility] LABIA [id number] [place] [address] [place] RBC (Bld) [#/Vol] 4.39 10*6/uL Normal 3.90-5.20 [facility] Comment on above: Order Comment: Speci men Type: BLOOD SPECIMENOrdering Facility: [facility] Address: [address] [place] [address] Performed By: #### 5 7021-8 ####[facility] LABIA [id number] [place] [address] [place] WBC (Bld) [#/Vol] 7.11 10*3/uL Normal 3.70-11.00 [facility] Comment on above: Order Comment: Speci men Type: BLOOD SPECIMENOrdering Facility: [facility] Address: [address] [place] [address] Performed By: #### 5 7021-8 ####[facility] LABCLIA [id number] [place] [facility] [id number] CNOVon 11-26-2022 CNOV Office Visit (NE50MN ) VIDYA FAN ([id number]) 1965 F Date Time Provider Department 11/26/22 2:00 PM PEACE STANLEY NE50MN During your visit today, we recorded the following information about you: Pulse Respiration Blood pressure Weight 73/minute 18/minute 102/67 70.8 kg Height 1.651 m Peace Stanley MD 11/26/2022 2:56 PM Signed [facility] Patient Name: Vidya SERRA Date of : 1965 Referring Provider: Dona Gabriel [address] [place] [id number] INITIAL EPILEPSY CLINIC NOTE 11/26/2022 2:00 PM CHIEF COMPLAINT: New Patient HISTORY OF PRESENT ILLNESS Ms. Fan is a 57 year old right-handed female seen in [facility] for initial consultation. At today's visit, the patient is accompanied by: artificial foliage arranger from group home Handedness: right-handed Age of onset: Seizure History and Evolution Patient accepted for admission to EMU and scheduled to see me prior to admission. Per record review: Onset: Unsure Recent Seizure Frequency: Daily Seizure Description(s) Available: Type A: Aura of a spot in her vision followed by patient report; Per Leslie (nurse) pt has history of hallucinations, anxiety. Dx of psychosis and other disorders which family says is epilepsy Duration: Variable History obtained today: She is a diagnosed schizophrenic, bipolar disorder, OCD, depression, and anxiety. Has lived in group home for years. Here with artificial foliage arranger from group home who just met her 4 days ago. Neither know why she is here exactly. Patient talks about her emotional problems and not acting right. She is calm and answers questions but has tangential thinking and difficulty providing a lot of detail. She does acknowledge some visual hallucinations sometimes, like seeing animals, or seeing that things are moving and swaying sideways. Says this has been happening for a long time but couldn't give a more specific answer. Sometimes gets headaches with these. She is diagnosed with migraines according to the facesheet that came with her from group home. She is certain that she never passed out. Never had motor symptoms concerning for seizures my hands shake but when I sit on them that stops (she has a diagnosis of tremor). Never bit tongue or wet herself. Info captured in review of records needs some adjustin- EEG and MRI have not been done. She actually had a few EEGs that were normal. 2- trialed 0 AEDs. This is also inacccurate. At least now, she is on Lamotrigine which she has been on for years for bipolar disorder. next of kin is Tosin Douglas (sister): [phone]. Syl Dean (referring physician): [phone] Rojas Chirinos number: [phone]. ask for [place]. Nurse is Leslie. I called all numbers above but nobody responded. Was put on hold for 20 min with Rojas Chirinos. Got voicemail for sister. No one answered in doctor's office. Per review of records: Review of records for Vidya Fan, a 57 year old female, being referred by Dr. Syl Dean [Rojas Chirinos [facility]] to Any Epileptologist for diagnosis. Patient has previously diagnosed transient vision changes. Patient has trialed 0 AEDs. As this patient is having daily episode and her family believe these are related to epilepsy, VEEG is indicated for event characterization and diagnostic evaluation to determine best treatment options. Summary: Onset: Unsure Recent Seizure Frequency: Daily Seizure Description(s) Available: Type A: Aura of a spot in her vision followed by patient report; Per Leslie (nurse) pt has history of hallucinations, anxiety. Dx of psychosis and other disorders which family says is epilepsy Duration: Variable Current AED(s): ? None Previous AED(s): ? None PMH: hallucinations, anxiety, psychosis PRIOR EVALUATIONS: ? EEG (NA): ? MRI brain wo/w contrast (NA): [facility] Recommendations: - Admit to EMU for VEEG monitoring, diagnostic evaluation Location: [facility] - Visit with epileptologist prior to admission - Additional testing to be considered by epilepsy clinicians Total # of Current Anti-seizure Medications: Side Effects to Current Anti-seizure Medications: Seizure Frequency at First Visit: Longest Seizure-free Interval: CURRENT OUTPATIENT ANTISEIZURE MEDICATIONS (as of the start of the encounter) lamoTRIgine (LAMICTAL) 200 mg tablet (Taking) Prior Anti-seizure Therapies: Trial Adequacy: Max Daily Dose Achieved: Side Effects: Effectiveness: Comments: Lamotrigine, other use Comorbidities: Episode Description: Patient Entered Data: EPILEPSY SCORE No Data PHQ-9 SCORE - CHUNG 2 SCORE - CHUNG 7 SCORE (more content not included)... Normal [facility] Comprehensive metabolic 2000 panelon 11-26-2022 Albumin [Mass/Vol] 3.9 g/dL Normal 3.9-4.9 [facility] Comment on above: Order Comment: Speci men Type: BLOOD SPECIMENOrdering Facility: [facility] Address: [address] [place] [address] Performed By: #### 1 9123-9, 08136-6, 2777-, 3015-3 ####[facility] LABCLIA [id number] [place] [address] [place] ALP [Catalytic activity/Vol] 91 U/L Normal 34-123 [facility] Comment on above: Order Comment: Speci men Type: BLOOD SPECIMENOrdering Facility: [facility] Address: [address] [place] [address] Performed By: #### 1 9123-9, 87124-5, 277-, 3015-3 ####[facility] LABCLIA [id number] [place] [address] [place] ALT [Catalytic activity/Vol] 69 U/L High 7-38 [facility] Comment on above: Order Comment: Speci men Type: BLOOD SPECIMENOrdering Facility: [facility] Address: [address] [place] [address] Performed By: #### 1 9123-9, 82351-7, 277-, 3015-3 ####[facility] LABCLIA [id number] [place] [address] [place] Anion gap [Moles/Vol] 13 mmol/L Normal 9-18 [facility] Comment on above: Order Comment: Speci men Type: BLOOD SPECIMENOrdering Facility: [facility] Address: [address] [place], [place] [address] Performed By: #### 1 9123-9, 91720-9, 277-, 3015-3 ####[facility] LABCLIA [id number] [address] [address] [place] AST [Catalytic activity/Vol] 42 U/L High 13-35 [facility] Comment on above: Order Comment: Speci men Type: BLOOD SPECIMENOrdering Facility: [facility] Address: [address] [place] [address] Performed By: #### 1 9123-9, 54234-5, 2777-, 3015-3 ####[facility] LABCLIA [id number] [place] [address] [place] Bilirubin [Mass/Vol] 0.4 mg/dL Normal 0.2-1.3 [facility] Comment on above: Order Comment: Speci men Type: BLOOD SPECIMENOrdering Facility: [facility] Address: [address] [place] [address] Performed By: #### 1 9123-9, 97326-6, 2777-1, 3016-3 ####[facility] LABCLIA [id number] [place] [address] [place] Calcium [Mass/Vol] 9.4 mg/dL Normal 8.5-10.2 [facility] Comment on above: Order Comment: Speci men Type: BLOOD SPECIMENOrdering Facility: [facility] Address: [address] [place] [address] Performed By: #### 1 9123-9, 75313-2, 2777-, 6-3 ####[facility] LABIA [id number] [place] [address] [place] Chloride [Moles/Vol] 103 mmol/L Normal 97-105 [facility] Comment on above: Order Comment: Speci men Type: BLOOD SPECIMENOrdering Facility: [facility] Address: [address] [place], [place] [address] Performed By: #### 1 9123-9, 14761-1, 2777-, 6-3 ####[facility] LABCLIA [id number] [place] [address] [place] CO2 [Moles/Vol] 24 mmol/L Normal 22-30 [facility] Comment on above: Order Comment: Speci men Type: BLOOD SPECIMENOrdering Facility: [facility] Address: [address] [place] [address] Performed By: #### 1 9123-9, 48302-9, 2777-1, 3016-3 ####[facility] LABCLIA [id number] [place] [address] [place] Creatinine [Mass/Vol] 0.92 mg/dL Normal 0.58-0.96 [facility] Comment on above: Order Comment: Speci sadia Type: BLOOD SPECIMENOrdering Facility: [facility] Address: [address] [place] [address] Performed By: #### 1 9123-9, 12820-7, 2776-, 3015-3 ####[facility] LABIA [id number] [place] [address] [place] ESTIMATED GLOMERULAR FILTRATION RATE 73 mL/min/1.73m??? Normal >=60 [facility] Comment on above: Order Comment: [facility] Type: BLOOD SPECIMENOrdering Facility: [facility] Address: [address] [place] [address] Result Comment: Meme mated Glomerular Filtration Rate (eGFR) is calculated using the 2020 CKD-EPI creatinine equation. This equation utilizes serum creatinine, sex, and age as parameters. The creatinine assay has traceable calibration to isotope dilution-mass spectrometry. Refer to KDIGO guidelines for clinical interpretation. In patients with unstable renal function, e.g. those with acute kidney injury, the eGFR may not accurately reflect actual GFR. Performed By: #### 1 9123-9, 41317-4, 277-, 3015-3 ####[facility] LABIA [id number] [place] [id number] [place] Glucose [Mass/Vol] 98 mg/dL Normal 74-99 [facility] Comment on above: Order Comment: Speci men Type: BLOOD SPECIMENOrdering Facility: [facility] Address: [address] [place] [address] Result Comment: The [place] Diabetes Association (ADA) provides guidance for cutoff values for fasting glucose and random glucose. The ADA defines fasting as no caloric intake for at least 8 hours. Fasting plasma glucose results between 100 to 125 mg/dL indicate increased risk for diabetes (prediabetes). Fasting plasma glucose results greater than or equal to 126 mg/dL meet the criteria for diagnosis of diabetes. In the absence of unequivocal hyperglycemia, results should be confirmed by repeat testing. In a patient with classic symptoms of hyperglycemia or hyperglycemic crisis, random plasma glucose results greater than or equal to 200 mg/dL meet the criteria for diagnosis of diabetes. Reference: Standards of Medical Care in Diabetes 2016, [place] [employer] Association. Diabetes Care. 2016.39(Suppl 1). Performed By: #### 1 9123-9, 23712-3, 2777-1, 6-3 ####[facility] LABIA [id number] [place] [address] [place] Potassium [Moles/Vol] 3.7 mmol/L Normal 3.7-5.1 [facility] Comment on above: Order Comment: Speci men Type: BLOOD SPECIMENOrdering Facility: [facility] Address: [address] [place] [address] Performed By: #### 1 9123-9, 66351-1, 2777-, 3015-3 ####[facility] [id number] [place] [address] [place] Protein [Mass/Vol] 6.7 g/dL Normal 6.3-8.0 [facility] Comment on above: Order Comment: Speci men Type: BLOOD SPECIMENOrdering Facility: [facility] Address: [address] [place] [address] Performed By: #### 1 9123-9, 53904-2, 2777-, 3015-3 ####[facility] [id number] [place] [address] [place] Sodium [Moles/Vol] 140 mmol/L Normal 136-144 [facility] Comment on above: Order Comment: Speci men Type: BLOOD SPECIMENOrdering Facility: [facility] Address: [address] [place] [address] Performed By: #### 1 9123-9, 17325-8, 277-1, 3 ####[facility] LABCLIA [id number] [address] [address] [place] Urea nitrogen [Mass/Vol] 15 mg/dL Normal 7-21 [facility] Comment on above: Order Comment: Speci men Type: BLOOD SPECIMENOrdering Facility: [facility] Address: [address] [place], [place] [address] Performed By: #### 1 9123-9, 94665-2, 277-1, 3015-07 ####[facility] LABCLIA [id number] [address] [address] [place] HISTORY PHYSICALon HISTORY PHYSICAL HNO ID: [id number] Author: Ivett Agudelo MD Service: Neurology Adult Epilepsy Author Type: Physician Type: HANDP Filed: 11/27/2022 9:46 AM Note Text: NEURO EPILEPSY ADMIT NOTE SERVICE DATE: 11/26/2022 SERVICE TIME: 3:04 PM NIGHT AND WEEKEND COVERAGE: After 5 pm and over the weekends, please page [phone] to contact the epilepsy resident/fellow/provider residential concierge ATTENDING PHYSICIAN: Dr. Agudelo [facility] UNIT: M60 - Adult Epilepsy Monitoring Unit (EMU) SERVICE: Adult Epilepsy Subjective CHIEF COMPLAINT: Hallucinations Patient Major Comorbidities: Schizoaffective Disorder, Bipolar Disorder, OCD, Depression, Anxiety, Hallucinations, Migraines, Tremor Portions of the following history were excerpted from that EPIC documentation and chart review. Additional comments have been made where appropriate. It has been reviewed in its entirety with the patient. PRESENT ILLNESS: This is a 57 year old right handed female with a PMH of schizoaffective disorder, bipolar disorder, OCD, depression, anxiety and hallucinations admitted for diagnostic evaluation. Patient of Dr. Stanley last seen on 11/26/2022 to establish care prior to admission. Patient presented to appointment and admission with no records. Was able to get a hold of the group home she came from and spoke with Karly. She reports she has limited information regarding the patient's history. Reports she came to current facility on October 29 2022. Believes she was previously admitted to a [facility] prior. Was told that the prior facility did not think her symptoms were due to schizoaffective disorder and believed that she either had frontal or occipital lobe epilepsy. Currently facility has observed odd behavior including episodes of auditory and visual hallucinations and delusions including demons chasing her, having lice in her hair, bats on her arms and having a parasite inside her. May be accompanied by inappropriate laughter (she will deny she is laughing when asked about it). Nurse reports she seems lucid during these events but unsure if she is oriented. Will respond to questions during episodes. No concerns for motor activity or staring spells. Nurse repots she has bilateral hand tremors which were worse a few weeks ago prior to one of her medications being increased, has not seem tremors recently. Patient denies specific episodes of concern for seizures, is just concerned that previous facility thought her behaviors could be seizures. Patient reports she has had two prior EEGs which she reports were normal, no records available for review. Patient currently takes LTG 200mg BID for bipolar disorder since 2016. SEIZURE HISTORY: From Initial Office Visit (11/26/2022) with Dr. Stanley: Patient accepted for admission to EMU and scheduled to see me prior to admission. Per record review: Onset: Unsure Recent Seizure Frequency: Daily Seizure Description(s) Available: Type A: Aura of a spot in her vision followed by patient report; Per Leslie (nurse) pt has history of hallucinations, anxiety. Dx of psychosis and other disorders which family says is epilepsy Duration: Variable History obtained today: She is a diagnosed schizophrenic, bipolar disorder, OCD, depression, and anxiety. Has lived in group home for years. Here with artificial foliage arranger from group home who just met her 4 days ago. Neither know why she is here exactly. Patient talks about her emotional problems and not acting right. She is calm and answers questions but has tangential thinking and difficulty providing a lot of detail. She does acknowledge some visual hallucinations sometimes, like seeing animals, or seeing that things are moving and swaying sideways. Says this has been happening for a long time but couldn't give a more specific answer. Sometimes gets headaches with these. She is diagnosed with migraines according to the facesheet that came with her from group home. She is certain that she never passed out. Never had motor symptoms concerning for seizures my hands shake but when I sit on them that stops (she has a diagnosis of tremor). Never bit tongue or wet herself. Info captured in review of records needs some adjustin- EEG and MRI have not been done. She actually had a few EEGs that were normal. 2- trialed 0 AEDs. This is also inacccurate. At least now, she is on Lamotrigine which she has been on for years for bipolar disorder. next of kin is Tosin Douglas (sister): [phone]. Syl Dean (referring physician): [phone] Rojas Chirinos number: [phone]. ask for [place] [place] Nurse is Leslie. I called all numbers above but nobody responded. Was put on hold for 20 min with Rojas Chirinos. Got voicemail for sister. No one answered in doctor's office. CURRENT SEIZURE TYPES: 1: Type: Hallucinations Onset: Unclear Description: Episodes of auditory and visual hallucinations and delusions including d (more content not included)... Normal [facility] Magnesium SerPl-olgaon 11-26 Magnesium [Mass/Vol] 2.1 mg/dL Normal 1.7-2.3 [facility] Comment on above: Order Comment: Speci men Type: BLOOD SPECIMENOrdering Facility: [facility] Address: [address] [place] [address] Performed By: #### 1 9123-9, 05922-4, 2777-1, 3016-3 ####[facility] LABCLIA [id number] [place] [address] [place] NURSING PROGon 11-26-2022 NURSING PROG HNO ID: [id number] Author: Rosi Matthews RN Service: ? Author Type: Registered Nurse Type: Nursing Progress Note Filed: 11/26/2022 5:25 PM Note Text: Summary: Admission to Pt admitted to . IV placed, telemetry leads and EEG electrodes applied. Understands unit protocols and seizure precautions. Essential education complete. No further questions or concerns. Rosi Matthews RN Normal [facility] PT panel Coag (PPP)on 2022 INR Coag (PPP) [Relative time] 1.1 {INR} Normal 0.9-1.3 [facility] Comment on above: Order Comment: Speci men Type: BLOOD SPECIMENOrdering Facility: [facility] Address: [address] [place] [address] Result Comment: Tayler min K Antagonist (VKA) Therapeutic Range: INR 2 to 3 (Target INR of 2.5) Note: For patients treated with VKA drugs, such as warfarin, the [place] [employer] 2012 Guideline recommends a therapeutic INR range of 2 to 3 (target INR of 2.5). This recommendation includes high-risk patients with antiphospholipid syndrome with previous arterial or venous thromboembolism, current-generation mechanical or bioprosthetic aortic heart valve replacement. Note: Patients with mechanical aortic valve replacement and additional risk factors for thromboembolic events (atrial fibrillation, previous thromboembolism, LV dysfunction, hypercoagulable conditions) or an older generation mechanical AVR (i.e., ball in-Cage) or any mechanical MVR should have a INR therapeutic range of 2.5 to 3.5 (target INR of 3). Britni GH, et al. Chest 2012, 141:7S-47S Supriya RA, et al. JACC 2017, 70: 252-289 Performed By: #### 3 4528-0, 45077-7 ####[facility] LABCLIA [id number] [address] OF [facility] PT Coag (PPP) [Time] 10.9 s Normal 9.7-13.0 [facility] Comment on above: Order Comment: Speci men Type: BLOOD SPECIMENOrdering Facility: [facility] Address: [address] [place] [address] Performed By: #### 3 4528-0, 23535-7 ####[facility] LABCLIA [id number] [place] [address] [place] Phosphate SerPl-mCncon 11-26 Phosphate [Mass/Vol] 3.6 mg/dL Normal 2.7-4.8 [facility] Comment on above: Order Comment: Speci men Type: BLOOD SPECIMENOrdering Facility: [facility] Address: [address] [place] [address] Performed By: #### 1 9123-9, 83731-9, 2777-1, 3016-3 ####[facility] LABCLIA [id number] [place] [address] [place] TOX SCREEN ROUT URon 023 Amphetamines Confirm (U) [Mass/Vol] Negative Normal Negative [facility] Comment on above: Order Comment: Speci men Type: URINE SPECIMENOrdering Facility: [facility] Address: [address] [place] [address] Result Comment: Cuto ff threshold at 1000 ng/mL. Performed By: #### U TOX2 ####[facility] LABCLIA [id number] [place] [address] [place] BARBITURATES, URINE Negative Normal Negative [facility] Comment on above: Order Comment: Speci men Type: URINE SPECIMENOrdering Facility: [facility] Address: [address] [place] [address] Result Comment: Cuto ff threshold at 200 ng/mL. Performed By: #### U TOX2 ####[facility] LABCLIA [id number] [place] [address] [place] BENZODIAZEPINES, UR Negative Normal Negative [facility] Comment on above: Order Comment: Speci men Type: URINE SPECIMENOrdering Facility: [facility] Address: [address] [place] [address] Result Comment: Cuto ff threshold at 200 ng/mL. Performed By: #### U TOX2 ####[facility] LABCLIA [id number] [place] [address] [place] CANNABINOIDS,URINE Negative Normal Negative [facility] Comment on above: Order Comment: Speci men Type: URINE SPECIMENOrdering Facility: [facility] Address: [address] [place] [address] Result Comment: Cuto ff threshold at 50 ng/mL. Performed By: #### U TOX2 ####[facility] LABCLIA [id number] [place] [address] [place] Cocaine Ql (U) Negative Normal Negative [facility] Comment on above: Order Comment: Speci men Type: URINE SPECIMENOrdering Facility: [facility] Address: [address] [place] [address] Result Comment: Cuto ff threshold at 300 ng/mL. Performed By: #### U TOX2 ####[facility] LABCLIA [id number] [place] [address] [place] Ethanol (U) [Mass/Vol] <11 Normal <11 [facility] Comment on above: Order Comment: Speci men Type: URINE SPECIMENOrdering Facility: [facility] Address: [address] [address] Performed By: #### U TOX2 ####[facility] LABCLIA [id number] [place] [address] [place] Opiates Screen Ql (U) Negative Normal Negative [facility] Comment on above: Order Comment: Speci men Type: URINE SPECIMENOrdering Facility: [facility] Address: [address] [address] Result Comment: Cuto ff threshold at 300 ng/mL. Performed By: #### U TOX2 ####[facility] LABIA [id number] [address] [place] oxyCODONE cutoff Screen (U) [Mass/Vol] Negative Normal Negative [facility] Comment on above: Order Comment: Speci men Type: URINE SPECIMENOrdering Facility: [facility] Address: [address] [place] [address] Result Comment: Cuto ff threshold at 100 ng/mL. Performed By: #### U TOX2 ####[facility] LABIA [id number] [address] [place] Phencyclidine Ql (U) Negative Normal Negative [facility] Comment on above: Order Comment: Speci men Type: URINE SPECIMENOrdering Facility: [facility] Address: [address] [place] [address] Result Comment: Cuto ff threshold at 25 ng/mL. Performed By: #### U TOX2 ####[facility] LABIA [id number] [place] [address] [place] TSH SerPl-aCncon 11-26-2022 TSH Qn 1.610 m[IU]/L Normal 0.270-4.20 0 [facility] Comment on above: Order Comment: Speci men Type: BLOOD SPECIMENOrdering Facility: [facility] Address: [address] [place] [address] Performed By: #### 1 9123-9, 10668-8, 2777-1, 3016-3 ####[facility] LABIA [id number] [place] [address] [place] aPTT PPPon 11-26-2022 aPTT Coag (PPP) [Time] 28.3 s Normal 23.0-32.4 [facility] Comment on above: Order Comment: Speci men Type: BLOOD SPECIMENOrdering Facility: [facility] Address: [address] [place] [phone] Performed By: #### 3 4528-0, 55195-2 ####[facility] [id number] [address] [place] lamoTRIgine SerPl-mCncon lamoTRIgine [Mass/Vol] 12.5 ug/mL Normal 1.0-13.0 [facility] Comment on above: Order Comment: Speci men Type: BLOOD SPECIMENOrdering Facility: [facility] Address: [address] [place] [address] Result Comment: This test was developed and its performance characteristics determined by [facility]'s Juan Carlos Lundy [facility] [place] ([facility] [email or web address]). It has not been cleared or approved by the FDA. [facility] is regulated under CLIA as qualified to perform high-complexity testing. This test is used for clinical purposes. It should not be regarded as investigational or for research. Performed By: #### 6 948-4 ####[facility] LABIA [id number] [address] [place] CNCONon 11-05-2022 CNCON Consults (NE50MN) VIDYA FAN ([id number]) 1965 F Date Time Provider Department 11/05/22 MARIELLA SIMPSON NE50MN During your visit today, we recorded the following information about you: Dona Gabriel APRN.GIA 11/05/2022 11:15 AM Signed [facility] Review of Records Patient: Vidya Fan Address: [address] [facility] [address] Impression: Review of records for Vidya Fan, a 57 year old female, being referred by Dr. Syl Dean [[facility]] to Any Epileptologist for diagnosis. Patient has previously diagnosed transient vision changes. EEG and MRI have not been done. Patient has trialed 0 AEDs. As this patient is having daily episode and her family believe these are related to epilepsy, VEEG is indicated for event characterization and diagnostic evaluation to determine best treatment options. Summary: Onset: Unsure Recent Seizure Frequency: Daily Seizure Description(s) Available: Type A: Aura of a spot in her vision followed by patient report; Per Leslie (nurse) pt has history of hallucinations, anxiety. Dx of psychosis and other disorders which family says is epilepsy Duration: Variable Current AED(s): None Previous AED(s): None PMH: hallucinations, anxiety, psychosis PRIOR EVALUATIONS: EEG (NA): MRI brain wo/w contrast (NA): BELTRAN Recommendations: - Admit to EMU for VEEG monitoring, diagnostic evaluation Location: Main [place] - Visit with epileptologist prior to admission - Additional testing to be considered by epilepsy clinicians Signed: Dona Gabriel APRN.PANEL MACHINE SETTER November 05, [address] Simpson for review and recommendations. Recommendations (as discussed with Dr. Simpson): - Please proceed with the above plan. Please route this encounter to the EMU Scheduling Pool (P EMU) or PMU Scheduling Pool (P PMU) through LOS AND Follow up PHASE 1.0 AND 1.5 ORDER SYNOPSIS Patient: Vidya Fan ([id number]) Best contact number: [phone] Insurance: Payor: [employer] / Plan: [employer] [facility] / Product Type: Medicaid / Scheduling Team: Please call for adult patients: Stella Love ([phone]) Carmen Hernandez ([phone]) Lou Laughlin([phone]) Tanvi Paulson([phone]) Please call for pediatric patients: Carmen Hernandez ([phone]) Lou Laughlin ([phone]) Stella Love ([phone]) Tanvi Paulson([phone]) 11/05/2022 Admission Type EMU Adult Number of Days requested 3 Location [facility] Admit Priority Routine PURPOSE 11/05/2022 Patient Being Considered for Epilepsy Surgery? No VEEG recommended to assess seizure burden, address new AND concerning syymptom-sign complex, and/or clarify syndromic epilepsy diagnosis? Yes 11/05/2022 Sphenoidal monitoring No Electrode placement Standard Appointments and Tests EPIL EEG LEAD PLACEMENT EPIL VEEG ADMIT TO EMU/PMU Comments: Patient lives in a SNF. Please have family member and caregiver familiar with her care accompany her to her appointment and admission to be able to provide comprehensive history. Thank you - Dona Consultations None Please route this encounter to the EMU Scheduling pool (P EMU) or PMU Scheduling pool (P PMU) through LOS AND Follow up Scheduling coordinators: For all VNS patients being scheduled for [place], please schedule VNS off/on office visits. Allergies As of Date: 11/05/2022 (Not on File) Date Reviewed: Never Reviewed Primary Visit Diagnosis:Transient vision disturbance [H53.9] Other Visit Diagnosis:Visual hallucinations [R44.1] Order(s):EPIL EEG LEAD PLACEMENT [[id number]] Order #: [id number]: 1 FUTURE EPIL VEEG ADMIT TO EMU/PMU [[id number]] Order #: [id number]: 1 Problem List As Of Date: 11/05/2022 (None) Encounter Status:Closed by DONA GABRIEL on 11/05/22 [facility] Yossi 11-04-2022 GIAN Telephone (NE50MN) VIDYA FAN ([id number]) 1965 F Date Time Provider Department 11/04/22 MARIELLA SIMPSON NE50MN During your visit today, we recorded the following information about you: Lou Laughlin 11/05/2022 10:50 AM Signed [facility] Initial Intake Interview November 05, 2022 10:31 AM Caller: Leslie Relationship to pt: Nurse @ Rojas Chirinos =======` Patient name: Vidya Fan Age: [age] year old Address: [address] [place] [address] (home) Insurance: Payor: [employer] / Plan: [employer] [facility] / Product Type: Medicaid / Referred by: Physician: Dr Syl Goodwin Referring to: Any Reason for Evaluation: diagnosis Previously evaluated at: NA Tel: Fax: Age AND date of onset of seizures/spells: Unsure Frequency: daily Seizure Type A: aura of spot in vision - pt reports visions Duration: Varies Seizure Type B: Duration: Recent injuries (within last 6 months)? No Recent surgeries (within the last 6 weeks)? No Seizure medications Current medications: - NA Past medications: - Developmental disabilities? Yes Previous neurosurgery? No Type AND Date: NA Implants (VNS/NeuroPace/shunt/orthod ontic hardware/pacemaker)? No Type AND Date: NA Would patient require anaesthesia or sedation? Yes Additional pertinent medical information: Per Leslie (nurse) pt has history of hallucinations, anxiety. Dx of psychosis and other disorders which family says is Epilepsy Test Yes or No Date Facility EEG No Video EEG No MRI brain No CT brain No fMRI brain No PET No Ictal SPECT No [place] No [facility] No Neuropsych testing No Visual field No Invasive video EEG (brain mapping) No If invasive video-EEG monitoring was performed, request: -- brain maps including any power point presentations -- disks of the study If resection was performed, request: -- operative notes -- surgical pathology reports If patient has had any presurgical or surgical workup, has imaging been requested? No Signed: Lou Laughlin Referring Provider: SYL GOODWIN [[id number]] Allergies As of Date: 11/04/2022 (Not on File) Date Reviewed: Never Reviewed Reason for Visit: Future Appointment [256] Cmt: New Pt, [place], Any Problem List As Of Date: 11/04/2022 (None) Encounter Status:Closed by TANVI PAULSON on 11/04/22 Normal [facility] Office Visit (Family Gavi amaya)on 06-30-2022 Follow-up visit Diagnoses/Problems Bilateral impacted cerumen (380.4) (H61.23) Schizophrenia (295.90) (F20.9) Migraine (346.90) (G43.909) Anxiety (300.00) (F41.9) Provider Impressions Bilateral cerumen impaction. There is no way I can clean them out at this OV. Use OTC wax removal kit. Instill 5-10 gtt BID each canal leave in place with cotton x 15 mon. remove the cotton. Do this x 4 days then irrigate with warm water. If this does not work then ENT would be better equipped to clean her ears out to decrease the risk of causing anxiety, panic. Pt agreeable and appreciative Migraine- sounds well controlled. she dye snot want more meds. states excedrin works well. I would not recommend a triptan as this can cause multiple SE. The other meds would be very costly as she is without insurance coverage. This was explained to her. 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 She states that she has been very dizzy lightheaded she has a history of cerumen impaction and she has had an ear infection many years ago. Denies fever or chills. Denies ear pain sore throat or nasal congestion. she does not want us to clean out her ears if anything touches my ear drum I vomit and want to pass out. It causes her anxiety talking about it. She is new to the area she moved from out of [facility] to [place] she has chronic schizophrenia and severe anxiety. She states overall she feels well the only other medical history is migraine. She gets migraines 1 or 2 times every 3 to 4 months but they last approximately 2 to 3 days. She uses kclh-jdy-mlakfks Excedrin which works well. She would rather not take any new medications for migraines at this time. Review of Systems VIDYA Gen:Denies FALK, fever/chills, change in vision CV: Denies CP ,palpitations at rest. no edema LUNGS: Denies SOB, cough or dyspnea with rest or exertion ABD: Denies abd pain, NANDV diarrhea, constipation MS: Denies muscle or joint pain NEURO: Denies numbness, tingling : Denies urinary sANDs Vitals Vital Signs Recorded: 30Jun2022 10:54AM Jfirydxcaoi81.3 F Heart Rate79 Sjhcpofictv75 Tkapjucg208 Kwyemkybq45 Height5 ft 8 in Oqxwae657 lb BMI Mmroqfzqmj72.02 kg/m2 BSA Calculated1.85 Tobacco Useb) No Falls Screening (Age 18+)a) No falls within the last year O2 Pgcigkiogm61 Physical Exam GENERAL: AANDO x 3 in no distress. HEENT: Bilateral significant thick, dark dry cerumen bilat ear canals. Non tender on exam. Unable to visualize TM's. CV: S1S2 RRR no murmur appreciated, no edema LUNGS: CTA, no cough or dyspnea at rest ABD: soft, NT +BS, non distended MS: Full ROM, non tender joints NEURO: CN II-XII intact SKIN: No rash 'Scores and Scales' Signatures Electronically signed by : YESENIA Robertson; Jun 30 2022 11:23AM EST (Author) Normal [employer] Tobacco Screening.on 023 Fall risk assessment a) No falls within the last year [facility] Work Phone: Tobacco use status [facility] b) No [facility] Work Phone: EMERGENCY DEPARTMENT SUMMARY on 06-16-2017 EMERGENCY DEPARTMENT SUMMARY [facility] EMERGENCY DEPARTMENT SUMMARY NAME NUMBER SEX AGE ADMIT DISC TYPE MED.RECORD# MENG Ac [id number] F 51 06/08/17 06/08/17 Anyi [id number] ROOM:ER-E DATE OF :1965 PHYSICIAN NO.:[id number] PHYSICIAN NAME:TOYIN Richter M.D. PHYSICIAN:NO DOCTOR ON ADMISSION SHEET CHIEF COMPLAINT: Abnormal throat sensation. HISTORY OF PRESENT ILLNESS: The patient was at the dentist yesterday and had a lot of dental work done mainly on the left side. She states that they had to give her multiple numbing shots. She states that she did not seem to have any problems afterwards or last night; however, as the day has gone on today she states that the left side of her throat and mouth just feel weird. She states that when she swallows it seems to only go down the right side. She has no difficulty breathing or speaking. She has not noticed any fever or chills. No tenderness to the area. She has no cough, congestion or shortness of breath. PAST MEDICAL HISTORY: Significant for bipolar disorder and depression. PAST SURGICAL HISTORY: None. MEDICATIONS: Per medication reconciliation list. ALLERGIES: She is allergic to sulfa. SOCIAL HISTORY: The patient is [place]. She lives at home. She does not smoke or drink alcohol. PHYSICAL EXAMINATION: This is a 51-year-old female who is alert and appropriate. She does not appear toxic. Skin is pink, warm and dry. No facial redness or swelling. I cannot appreciate any tenderness to any of the facial areas. Eyes, ears, nose, mouth and throat are all within normal limits. Neck is supple. There is no tenderness, swelling or adenopathy. She seems to swallow quite normally. Lungs are clear without crackles or wheezes. Cardiac exam is a regular rhythm without any ectopy, murmurs, gallops or rubs. Vital signs: Temperature 97.9, pulse 77, respirations 14, and blood pressure 123/80. EMERGENCY DEPARTMENT COURSE AND TREATMENT: The patient has some mild pharyngeal irritation. The cause of this is unclear. There is no evidence of any infection or swelling. I did discuss with her possibly proceeding to get a CT, but she would like to hold off on doing that for the time being. I did feel that it was reasonable to treat her with some oral antibiotics and see how things go over the next 24 hours, and she was in agreement with this. She is to return if her symptoms worsen in any way. DIAGNOSIS: Pharyngitis. D: Felipe Richter MD TD: 19:05 JOB #: [id number] Electronically signed by: TOYIN Richter M.D. 06/16/17 15:37 Transcribed by: kee 06/09/2017 17:06 Normal [facility] Vital Signs Date Time Vital Sign Value Performing Clinician Facility 11-19-2024 11:26-0400 Body temperature 98 [degF] Dr. Syl Goodwin MD [facility] 11-19-2024 11:26-0400 Body weight 85.[address] Syl Goodwin MD [facility] 11-19-2024 11:26-0400 Diastolic blood pressure 72 mm[Hg] Dr. Syl Goodwin MD [facility] 11-19-2024 11:26-0400 Heart rate 80 /min Dr. Syl Goodwin MD [facility] 11-19-2024 11:26-0400 Respiratory rate 17 /min Dr. Syl Goodwin MD [facility] 11-19-2024 11:26-0400 SaO2% (BldA) [Mass fraction] 97 % Dr. Syl Goodwin MD [facility] 11-19-2024 11:26-0400 Systolic blood pressure 113 mm[Hg] Dr. Syl Goodwin MD [facility] 09-13-2024 09:15-0400 Body height 167.[address] Syl Goodwin MD [facility] 09-13-2024 09:15-0400 Body mass index (BMI) [Ratio] 30 kg/m2 Dr. Syl Goodwin MD [facility] 09-13-2024 09:15-0400 Body weight 84.[address] Syl Goodwin MD [facility] 09-13-2024 09:15-0400 Diastolic blood pressure 83 mm[Hg] Dr. Syl Goodwin MD [facility] 09-13-2024 09:15-0400 Heart rate 91 /min Dr. Syl Goodwin MD [facility] 09-13-2024 09:15-0400 Respiratory rate 16 /min Dr. Syl Goodwin MD [facility] 09-13-2024 09:15-0400 SaO2% (BldA) [Mass fraction] 98 % Dr. Syl Goodwin MD [facility] 09-13-2024 09:15-0400 Systolic blood pressure 128 mm[Hg] Dr. Syl Goodwin MD [facility] 08-14-2024 07:50-0400 Body temperature 97.5 [degF] Dr. Syl Goodwin MD [facility] 08-14-2024 07:50-0400 Diastolic blood pressure 77 mm[Hg] Dr. Syl Goodwin MD [facility] 08-14-2024 07:50-0400 Heart rate 80 /min Dr. Syl Goodwin MD [facility] 08-14-2024 07:50-0400 Respiratory rate 18 /min Dr. Syl Goodwin MD [facility] 08-14-2024 07:50-0400 SaO2% (BldA) [Mass fraction] 98 % Dr. Syl Goodwin MD [facility] 08-14-2024 07:50-0400 Systolic blood pressure 115 mm[Hg] Dr. Syl Goodwin MD [facility] 08-14-2024 06:07-0400 Body height 167.[address] Syl Goodwin MD [facility] 08-14-2024 06:07-0400 Body mass index (BMI) [Ratio] 29.5 kg/m2 Dr. Syl Goodwin MD [facility] 08-14-2024 06:07-0400 Body weight 82.[address] Syl Goodwin MD [facility] 06-20-2024 09:36-0500 Body mass index (BMI) [Ratio] 31.3 kg/m2 Dr. Syl Goodwin MD [facility] 06-20-2024 09:36-0500 Body weight 88.[address] Syl Goodwin MD [facility] 06-20-2024 09:36-0500 Diastolic blood pressure 74 mm[Hg] Dr. Syl Goodwin MD [facility] 06-20-2024 09:36-0500 Heart rate 86 /min Dr. Syl Goodwin MD [facility] 06-20-2024 09:36-0500 Respiratory rate 16 /min Dr. Syl Goodwin MD [facility] 06-20-2024 09:36-0500 SaO2% (BldA) [Mass fraction] 95 % Dr. Syl Goodwin MD [facility] 06-20-2024 09:36-0500 Systolic blood pressure 119 mm[Hg] Dr. Syl Goodwin MD [facility] 05-07-2024 11:36-0500 Body mass index (BMI) [Ratio] 29 kg/m2 Dr. Syl Goodwin MD [facility] 05-07-2024 11:36-0500 Body temperature 98.2 [degF] Dr. Syl Goodwin MD [facility] 05-07-2024 11:36-0500 Body weight 81.[address] Syl Goodwin MD [facility] 05-07-2024 11:36-0500 Diastolic blood pressure 64 mm[Hg] Dr. Syl Goodwin MD [facility] 05-07-2024 11:36-0500 Heart rate 82 /min Dr. Syl Goodwin MD [facility] 05-07-2024 11:36-0500 Respiratory rate 15 /min Dr. Syl Goodwin MD [facility] 05-07-2024 11:36-0500 SaO2% (BldA) [Mass fraction] 96 % Dr. Syl Goodwin MD [facility] 05-07-2024 11:36-0500 Systolic blood pressure 110 mm[Hg] Dr. Syl Goodwin MD [facility] 12-01-2022 19:58-0400 Diastolic Blood Pressure Non-Invasive [address] SCOOTER LOPEZ MD [facility] 12-01-2022 19:58-0400 Heart rate 60 /min DR SCOOTER LOPEZ MD [facility] 12-01-2022 19:58-0400 Respiratory rate 18 /min DR SCOOTER LOPEZ MD [facility] 12-01-2022 19:58-0400 Systolic Blood Pressure Non-Invasive [address] SCOOTER LOPEZ MD [facility] 12-01-2022 16:50-0400 Blood Pressure Cuff Size DR SCOOTER LOPEZ MD [facility] 12-01-2022 16:50-[address] SCOOTER LPOEZ MD [facility] 12-01-2022 16:50-[address] SCOOTER LOPEZ MD [facility] 12-01-2022 16:50-0400 Body height 165.[address] SCOOTER LOPEZ MD [facility] 12-01-2022 16:50-0400 Body temperature 98.42 [degF] DR SCOOTER LOPEZ MD [facility] 12-01-2022 16:50-0400 Body weight 72.[address] SCOOTER LOPEZ MD [facility] 12-01-2022 16:50-0400 Diastolic Blood Pressure Non-Invasive [address] SCOOTER LOPEZ MD [facility] 12-01-2022 16:50-0400 Heart rate 57 /min DR SCOOTER LOPEZ MD [facility] 12-01-2022 16:50-0400 Respiratory rate 18 /min DR SCOOTER LOPEZ MD [facility] 12-01-2022 16:50-0400 Systolic Blood Pressure Non-Invasive [address] SCOOTER LOPEZ MD [facility] 11-26-2022 13:58-0400 Body height 165.1 cm Peace Stanley MD Work Phone: [facility] 11-26-2022 13:58-0400 Body weight 70.76 kg Peace Stanley MD Work Phone: [facility] 11-26-2022 13:58-0400 Diastolic blood pressure 67 mm[Hg] Peace Stanley MD Work Phone: [facility] 11-26-2022 13:58-0400 Heart rate 73 /min Peace Stanley MD Work Phone: [facility] 11-26-2022 13:58-0400 Respiratory rate 18 /min Peace Stanley MD Work Phone: [facility] 11-26-2022 13:58-0400 SaO2% (BldA) [Mass fraction] 96 % Peace Stanley MD Work Phone: [facility] 11-26-2022 13:58-0400 Systolic blood pressure 102 mm[Hg] Peace Stanley MD Work Phone: [facility] 06-30-2022 10:54-0500 Body height 172.72 cm Nellie M Butt Work Phone: [facility] Work Phone: 06-30-2022 10:54-0500 Body mass index (BMI) [Ratio] 24.02 kg/m2 Nellie M Butt Work Phone: [facility] Work Phone: 06-30-2022 10:54-0500 Body surface area Derived from formula 1.85 m2 Nellie M Butt Work Phone: [facility] Work Phone: 06-30-2022 10:54-0500 Body temperature 97.3 [degF] Nellie M Butt Work Phone: [facility] Work Phone: 06-30-2022 10:54-0500 Body weight 71.67 kg Nellie M Butt Work Phone: [facility] Work Phone: 06-30-2022 10:54-0500 Diastolic blood pressure 68 mm[Hg] Nellie M Butt Work Phone: [facility] Work Phone: 06-30-2022 10:54-0500 Heart rate 79 /min Nellie M Butt Work Phone: [facility] Work Phone: 06-30-2022 10:54-0500 Respiratory rate 18 /min Nellie M Butt Work Phone: [facility] Work Phone: 06-30-2022 10:54-0500 SaO2% (BldA) [Mass fraction] 98 % Nellie M Butt Work Phone: [facility] Work Phone: 06-30-2022 10:54-0500 Systolic blood pressure 110 mm[Hg] Nellie M Butt Work Phone: [facility] Work Phone: Encounters Encounter Date Encounter Type Care Provider Facility Start: 11-21-2024 ambulatory Syl Goodwin Facility:[facility] Start: 11-19-2024 End: 11-19-[address] Oni Quinteros MD -[facility] Work Phone: Start: 11-19-2024 End: 11-19-[address] Syl Goodwin MD [facility] Work Phone: Start: 10-30-2024 End: 10-30-2024 ambulatory DEVENDRA SOSA MD Facility:[facility] Start: 10-30-2024 End: 10-30-2024 Patient encounter procedure DEVENDRA SOSA MD [facility] Start: 10-16-2024 End: 10-20-[address] SYL GOODWIN MD Facility:[facility] Start: 09-13-2024 End: 09-13-2024 Patient encounter procedure Fozia CAMARGO -[facility] Work Phone: Start: 09-13-2024 End: 09-13-2024 ambulatory Syl Goodwin Facility:[facility] Start: 08-17-2024 End: 08-17-[address] Syl Goodwin MD [facility] [employer] Work Phone: Start: 08-17-2024 End: 08-17-[address] Oni Quinteros MD -Laboratory Work Phone: Start: 08-17-2024 End: 08-17-2024 ambulatory Syl Goodwin Facility:[facility] Start: 08-14-2024 ambulatory Syl Goodwin Facility:[facility] Start: 08-14-2024 Non-patient / Non-visit Luis Frye DO -[facility] Start: 08-14-2024 End: 08-14-2024 Admission to same day surgery center Luis Frye DO -Endoscopy Work Phone: Start: 08-14-2024 End: 08-14-[address] Syl Goodwin MD [facility] [employer] Work Phone: Start: 08-07-2024 ambulatory Syl Goodwin Facility:[facility] Start: 06-20-2024 End: 06-20-2024 Patient encounter procedure Fozia CAMARGO -[facility] Work Phone: Start: 06-20-2024 End: 06-20-2024 ambulatory [facility] Facility:[facility] Start: 05-07-2024 End: 05-07-[address] Oni Quinteros MD -[facility] Work Phone: Start: 05-07-2024 End: 05-07-2024 ambulatory [facility] Facility:[facility] Start: 03-18-2024 End: 03-19-2024 Emergency department patient visit [facility] Facility:[facility] Start: 02-03-2024 End: 02-03-2024 ambulatory [facility] Facility:[facility] Start: 01-25-2024 End: 01-25-2024 ambulatory [facility] Facility:[facility] Start: 12-29-2023 End: 12-29-2023 ambulatory Oni Quinteros Facility:[facility] Start: 12-01-2022 End: 12-01-2022 Emergency department patient visit NOT RECORDED PHYSICIAN Facility:[facility] Start: 12-01-2022 End: 12-01-2022 Emergency department patient visit DR SCOOTER LOPEZ MD [facility] Start: 11-26-2022 End: 11-30-2022 Evaluation and management of inpatient IVETT AGUDELO Facility:[facility] Start: 11-26-2022 End: 11-27-2022 Evaluation and management of inpatient DONA GABRIEL Facility:[facility] Start: 11-26-2022 End: 11-26-2022 Patient encounter procedure Ivett Agudelo MD Work Phone: Neurology Comment on above: Transient vision dis turbance (Primary Dx) Start: 06-30-2022 Office outpatient ne w 30 minutes Nellie Villa [facility] Work [facility]: Start: 06-30-2022 [address] Nellie Geller Facility:[id number] Start: 06-08-2017 End: 06-08-2017 Emergency department patient visit FELIPE RICHTER [facility] Procedures Date Procedure Procedure Detail Performing Clinician Start: 08-17-[address] Syl Goodwin MD Comment on above: Performed at: - [facility] [id number] Director: Pita Foote MD, Phone: [phone] at: - [facility] [id number] [place], [place] [id number] Director: Isaias Lozano PhD, Phone: [phone] Start: 08-17-2024 Antibody to centromere measurement Dr. Pablo Goodwin MD Comment on above: Test not performed Start: 08-17-2024 Antibody to extractable nuclear antigen measurement Dr. Syl Goodwin MD Comment on above: Test not performed Start: 08-17-2024 Antibody to JANET-[address] Syl Goodwin MD Comment on above: Test not performed Start: 08-17-2024 Antibody to lupus La protein measurement Dr. Syl Goodwin MD Comment on above: Test not performed Start: 08-17-2024 Antibody to SS-A measurement Dr. Syl Goodwin MD Comment on above: Test not performed Start: 08-17-[address] Syl limon MD Comment on above: Test not performed Start: 08-17-2024 PHONE REPRESENTATIVE antibody measurement Dr. Syl limon MD Comment on above: Test not performed Start: 08-14-[address] Syl Goodwin MD Start: 08-13-2024 Colonoscopy DEVENDRA SOSA MD Comment on above: polyps present, needs repeat in 3 years Esophagogastroduoden oscopic electrohydraulic lithotripsy of bezoar in stomach DEVENDRA SOSA MD Plan of Treatment Date Care Activity Detail Author Start: 11-26-2025 DIABETES SCREEN DIABETES SCREEN [facility] Start: 08-17-2024 Dna antibody lumbee/double stranded DNA ANTIBODY RED CLIFF [facility] Start: 08-17-2024 Extractable nuclear antigen antibody any method NUCLEAR ANTIGEN ANTIBODY [facility] Start: 08-14-2024 Colonoscopy w/biopsy single/multiple COLONOSCOPY AND BIOPSY [facility] Start: 08-14-2024 Colsc flx w/rmvl of tumor polyp lesion snare tq COLONOSCOPY W/LESION REMOVAL [facility] Start: 08-14-2024 Egd insert guide wire dilator passage esophagus EGD GUIDE WIRE INSERTION [facility] Start: 08-14-2024 Egd transoral biopsy single/multiple EGD BIOPSY SINGLE/MULTIPLE [facility] Start: 08-14-2024 Patient discharge [facility] Start: 01-28-2023 Influenza [facility] Start: 05-30-2022 DEPRESSION ASSESSMENT DEPRESSION ASSESSMENT [facility] Start: 2016 SHINGRIX VACCINE (1 of 2) SHINGRIX VACCINE (1 of 2) [facility] Start: 2011 COLOGUARD (FIT-DNA) COLOGUARD (FIT-DNA) [facility] Start: 2011 Colonoscopy COLONOSCOPY [facility] Start: 2011 COLORECTAL CANCER SCREENING COLORECTAL CANCER SCREENING [facility] Start: [address] COLONOGRAPHY [facility] Start: 2011 FECAL OCCULT BLOOD FECAL OCCULT BLOOD [facility] Start: 2011 LIPID SCREEN LIPID SCREEN [facility] Start: 2011 SIGMOIDOSCOPY SIGMOIDOSCOPY [facility] Start: 2006 Mammography MAMMOGRAM [facility] Start: 1996 HPV TESTING HPV TESTING [facility] Start: 1987 PAP TESTING PAP TESTING [facility] Start: 1985 Urine microalbumin profile DTAP,TDAP,TD (1 - Tdap) [facility] Start: 1984 HEPATITIS C SCREENING HEPATITIS C SCREENING [facility] Start: 1984 HIV SCREENING HIV SCREENING [facility] Start: 01-02-1967 COVID-19 VACCINE (#1) COVID-19 VACCINE (#1) [facility] Start: 1966 HEPATITIS B (1 of 3 - 3-dose series) HEPATITIS B (1 of 3 - 3-dose series) [facility] Patient referral [facility] Work Phone: Payers Date Payer Category Payer Self-pay 2022 Medicaid [id number] 2022 Medicaid [id number] 1966 Unknown [id number] 2.16. [id number] 1966 Unknown [id number] 2.16.8 [id number] 1966 Unknown [id number] 2.16. [id number] 1966 Unknown [id number] 2.16.8 [id number] Unknown Self Pay Unknown [id number] 2.16.8 [id number] Unknown [id number] 2.16.8 [id number] Unknown [id number] 2.16.8 [id number] Unknown [id number] 2.16.8 [id number] Unknown [id number] 2.16.8 [id number] Unknown [id number] 2.16.8 40.1.713148.3.579.2.462 Unknown [id number] 2.16.8 [id number] Unknown [id number] 2.16.8 [id number] Unknown [id number] 2.16.8 [id number] Unknown [id number] 2.16.8 [id number] Unknown [id number] 2.16.8 [id number] Unknown [id number] 2.16.8 [id number] Unknown [id number] 2.16.8 [id number] Social History Date Type Detail Facility Start: 11-26-2022 End: 09-13-2024 Tobacco smoking status NHIS Never smoked tobacco [facility] Start: 11-26-2022 Tobacco use and exposure Smokeless tobacco non-user [facility] Start: 11-26-2022 Alcohol intake Lifetime non-d emy (finding) [facility] Start: 1965 Sex Assigned At Not on file [facility] Tobacco smoking status [facility] Start: 1965 Sex Assigned At Female [facility] Start: 03-15-2019 End: 08-14-2024 Sex Female (finding) [facility] NEGATED: Highlighted rowStart: ALIYAF History of tobacco use Passive smoker [facility] Goals Date Patient Goal Desired Activity /State Functional Status Date Assessment Result Facility 12-01-2022 Functional Status Awake [facility] Mental Status Date Assessment Result Facility 08-14-2024 Cognitive function Level Of Consciousness Sedated [facility] Work Phone: 08-14-2024 Cognitive function Voice/Name [facility] Work Phone: 12-01-2022 Mental Status Orientation Not oriented to time [facility] 12-01-2022 Mental Status [facility] Clinical Notes 11-05-2022 to 08-14-2024 Note Date & Type Note Facility 08-14-2024 Consult note [facility] 08-14-2024 Consult note [facility] 08-14-2024 Procedure note [facility] 08-14-2024 Procedure note [facility] 08-14-2024 Procedure note [facility] 08-14-2024 Procedure note [facility] 08-14-2024 Evaluation note Diagnosis Onset Date Resolution GERD (gastroesophageal reflux disease) acute August 14, 2024 5:42am Personal history of colonic polyps acute August 14, 2024 5:42am Esophagitis acute September 13, 025 9:02am GERD (gastroesophageal reflux disease) acute September 13, 2024 9:02am Altered mental status acute Oct 11:20am Hallucinations acute November 19, 2024 11:20am Seizures acute November 19 11:20am [facility] Work Phone: 1(670) 665-528203-18-2025 History and physical note [facility] Medical Records Department [address] [place] [address] History & Physical Exam 08/14/24 0701 MR#: [id number] Acct: [id number] Name: VIDYA FAN Rep #:[id number] : 1965 59 From: Luis Frye DO PCP: Syl Goodwin MD Status:REG [facility] Location: [place] [address] HPI - General General Date of Admission: 08/14/24 Date of Service: 08/14/24 Chief Complaint: gerd and screening colon HPI Narrative VIDYA FAN, is a 59 F who presents the evaluation of GERD and CRS COLON: 2016 SSP - recommended recall was for 3 years - denies any change in bowel habits - denies any pain - denies any bleeding - denies any family h/o colon CA - denies any heart or lung disease - denies any kidney disease - denies any weight loss - she c/o GERD for the past 2 years - worse when she lays down - no issues after eating - she reports at least 3-4 hours between dinner and bed - denies any dysphagia - she is on Omeprazole 20mg every morning - has been elevating head with pillows - reports waking at 10 or 11pm and unable to relieve HB - denies any heart or lung disease PFSH Medical History Gastric reflux Migraine headache Depression High cholesterol Schizophrenia Bipolar disorder Anxiety Non-smoker Elevated liver enzymes Calculus of gallbladder without cholecystitis without obstruction Transaminitis Home Medications ?Medication ?Instructions ?Recorded ?Last Taken ?Type benztropine 0.5 mg tablet 0.5 mg PO BID 12/29/2308/13 History lamotrigine 200 mg tablet 200 mg PO BID 12/29/2308/13 History donepezil 5 mg tablet (Aricept) 5 mg PO QHS 03/19/24 0 08/13/24 History docusate sodium 100 mg capsule 100 mg PO BID PRN const ipation 06/20/24 Unknown History famotidine 40 mg tablet 40 mg PO QHS #90 tabs 08/13/24 Rx melatonin 3 mg capsule 3 mg PO HS 06/20/24 08/13/24 History mirtazapine 15 mg tablet 15 mg PO QHS 06/20/24 History omeprazole 20 mg capsule,delayed 20 mg PO QDAY 5 Unknown History release paliperidone 6 mg tablet,extended 6 mg PO QAM 06/20/24 08/13/24 History release 24 hr polyethylene glycol 3350 17 4 g PO QDAY 06/20/2408/13 History gram/dose oral powder potassium chloride 20 mEq 20 meq PO QDAY 06/20/2407/28 History tablet,extended release acetaminophen 325 mg capsule 325 mg PO Q4H PRN fever o r pain 08/13/24 Unknown History Allergy/AdvReac Type Severity Reaction Status Date / Time blue dye Allergy PT UNSURE Verified 08/14/24 06:05 OF REACTION monosodium glutamate (msg) Allergy PT UNSURE Verified 08/14/24 06:05 OF REACTION sertraline (From Zoloft) Allergy PT UNSURE Verified 08/14/24 06:05 OF REACTION shellfish derived Allergy PT UNSURE Verified 08/14/24 06:05 OF REACTION Sulfa (Sulfonamide Allergy unknown Verified 08/14/24 06:05 Antibiotics) Social History Smoking Status: Never smoker ROS Constitutional Constitutional: Denies fatigue, fever(s), poor appetite, weight gain or weight loss Gastrointestinal Gastrointestinal: Denies belching, bloating, change in bowel habits, change in stool character, chewing difficulty, coffee ground emesis, constipation, cramping, diarrhea, dyspepsia, dysphagia, earlysatiety, excessive flatus, fecalincontinence, heartburn, hematemesis, hematochezia, hemorrhoids, loose stools, melena, nausea, odynophagia, rectal bleeding, tenesmus, vomiting or weight changes Vital Signs Vital Signs Vital Signs: 08/14/24 06:07 08/14/24 06:07 08/14/24 06:23 Temperature 97.7 F L 97.7 F L Temperature Source Temporal Pulse Rate 91 91 Respiratory Rate 16 16 Respiratory Pattern Normal Blood Pressure 109/82 H 109/82 H Blood Pressure Mean 91 Blood Pressure Source Monitor Blood Pressure Position Semi-Fowlers Blood Pressure Location Right Arm Pulse Ox 99 99 Oxygen Delivery Method Room Air Room Air Weight Weight: 182 lb 12.211 oz Body Mass Index (BMI) 29.5 Physical Exam Const alert, oriented x3, no apparent distress and healthy appearing General Appearance: cooperative GI normal to inspection, nondistended, normoactive bowel sounds, soft to palpation,non-tender and non-distended Percussion: normal to percussion Rectal Exam: deferred Assessment & Plan Assessment/Plan (1) GERD (gastroesophageal reflux disease): (2) Personal history of colonic polyps: PLAN: Assessment and Plan Assessment and Plan (1) Personal history of colonic polyps: Status: Acute (2) GERD (gastroesophageal reflux disease): Status: Acute Medications: New famotidine 40 mg PO QHS 90 tabs 3RF Plan 58y/o female presents for consultation for personal history of SSP in 2016. PMH is significant for hyperlipidemia, bipolar disorder, depression, obsessive- compulsive disorder, and schizoaffective disorder. She is being followed by Dr. Quinteros and was last seen 05/07/2024 for follow-up of hallucination, seizures andaltered mental state. CBC and transaminases were unremarkable 03/18/2024. She complains of increased in GERD keeping her up at HS. I have added pepcid at HS in addition to Omeprazole she is taking every morning. She will schedule colonoscopy and EGD. Plan Details Follow Up: 3 Months 08/14/24 0703 Cosigner Signature (if applicable): CC: Syl Goodwin MD; Luis Frye DO~ Signed [facility]03-18-2025 [facility] Medical Records Department [address] [place] [address] History Physical Exam 08/14/24 0701 MR#: [id number] Acct: [id number] Name: VIDYA FAN Rep #: [id number] : 1965 59 From: Luis Frye DO PCP: Syl Goodwin MD Status:[facility] Location: [place] [address] HPI - General General Date of Admission: 08/14/24 Date of Service: 08/14/24 Chief Complaint: gerd and screening colon HPI Narrative VIDYA FAN, is a 59 F who presents the evaluation of GERD and CRS COLON: 2017 SSP - recommended recall was for 3 years - denies any change in bowel habits - denies any pain - denies any bleeding - denies any family h/o colon CA - denies any heart or lung disease - denies any kidney disease - denies any weight loss - she c/o GERD for the past 2 years - worse when she lays down - no issues after eating - she reports at least 3-4 hours between dinner and bed - denies any dysphagia - she is on Omeprazole 20mg every morning - has been elevating head with pillows - reports waking at 10 or 11pm and unable to relieve HB - denies any heart or lung disease PFSH Medical History Gastric reflux Migraine headache Depression High cholesterol Schizophrenia Bipolar disorder Anxiety Non-smoker Elevated liver enzymes Calculus of gallbladder without cholecystitis without obstruction Transaminitis Home Medications ???Medication ???Instructions ???Recorded ???Last Taken ???Type benztropine 0.5 mg tablet 0.5 mg PO BID 12/29/23 08/13/24 Hi story lamotrigine 200 mg tablet 200 mg PO BID 12/29/23 08/13/24 Hi story donepezil 5 mg tablet (Aricept) 5 mg PO QHS 03/19/24 08/13/24 Hist ory docusate sodium 100 mg capsule 100 mg PO BID PRN constipation Unknown History famotidine 40 mg tablet 40 mg PO QHS #90 tabs 06/20/24 Rx melatonin 3 mg capsule 3 mg PO HS 06/20/24 08/13/24 Histo ry mirtazapine 15 mg tablet 15 mg PO QHS 06/20/24 08/13/24 His tory omeprazole 20 mg capsule,delayed 20 mg PO QDAY 06/20/24 Unknown His tory release paliperidone 6 mg tablet,extended 6 mg PO QAM 06/20/24 08/13/24 His tory release 24 hr polyethylene glycol 3350 17 4 g PO QDAY 06/20/24 08/13/24 Hist ory gram/dose oral powder potassium chloride 20 mEq 20 meq PO QDAY 06/20/24 08/13/24 H istory tablet,extended release acetaminophen 325 mg capsule 325 mg PO Q4H PRN fever or pain Unknown History Allergy/AdvReac Type Severity Reaction Status Date / Time blue dye Allergy PT UNSURE Verified 08/14/24 06:05 OF REACTION monosodium glutamate (msg) Allergy PT UNSURE Verified 08/14/24 06:05 OF REACTION sertraline (From Zoloft) Allergy PT UNSURE Verified 08/14/24 06:05 OF REACTION shellfish derived Allergy PT UNSURE Verified 08/14/24 06:05 OF REACTION Sulfa (Sulfonamide Allergy unknown Verified 08/14/24 06:05 Antibiotics) Social History Smoking Status: Never smoker ROS Constitutional Constitutional: Denies fatigue, fever(s), poor appetite, weight gain or weight loss Gastrointestinal Gastrointestinal: Denies belching, bloating, change in bowel habits, change in stool character, chewing difficulty, coffee ground emesis, constipation, cramping, diarrhea, dyspepsia, dysphagia, early satiety, excessive flatus, fecal incontinence, heartburn, hematemesis, hematochezia, hemorrhoids, loose stools, melena, nausea, odynophagia, rectal bleeding, tenesmus, vomiting or weight changes Vital Signs Vital Signs Vital Signs: 08/14/24 06:07 08/14/24 06:07 08/14/24 06:23 Temperature 97.7 F L 97.7 F L Temperature Source Temporal Pulse Rate 91 91 Respiratory Rate 16 16 Respiratory Pattern Normal Blood Pressure 109/82 H 109/82 H Blood Pressure Mean 91 Blood Pressure Source Monitor Blood Pressure Position Semi-Fowlers Blood Pressure Location Right Arm Pulse Ox 99 99 Oxygen Delivery Method Room Air Room Air Weight Weight: 182 lb 12.211 oz Body Mass Index (BMI) 29.5 Physical Exam Const alert, oriented x3, no apparent distress and healthy appearing General Appearance: cooperative GI normal to inspection, nondistended, normoactive bowel sounds, soft to palpation, non-tender and non- distended Percussion: normal to percussion Rectal Exam: deferred Assessment Plan Assessment/Plan (1) GERD (gastroesophageal reflux disease): (2) Personal history of colonic polyps: PLAN: Assessment and Plan Assessment and Plan (1) Personal history of colonic polyps: Status: Acute (2) GERD (gastroesophageal reflux disease): Status: Acute Medications: New famotidine 40 mg PO QHS 90 tabs 3RF Plan 58y (more content not included)...[facility]03-18-2025 Consult note [facility] Medical Records Department [address] [place] [address] Pre-Anesthesia Evaluation 08/14/24620 MR#: [id number] Acct: [id number] Name: VIDYA FAN Rep #:[id number] : 1965 59 From: Tre Frederick MD PCP: Syl Goodwin MD Status:REG [facility] Y Race: C Location: [place] [address] ASA Classification* ASA Classification ASA Classification: 2 Assessment & Plan Anesthesia* Anesthesia Assessment Anesthesia Assessment: Discussed sedation and/or anesthesia options, risks, benefits, and alternatives with patient/parents/legal guardian/POA. Questions invited. The patient/parents/legal guardian/POA seems to understand and agrees to proceedwith anesthesia plan. Reviewed the physical assessment, medical history, allergy history and patient home medications list prior to surgery/procedure/anesthetic and documented any changes. Performed airway and anesthesia risk assessments. Anesthesia Type Anesthesia Type: General (Pleasant 59 y/o F diagnosed with bipolar/schizo, seemsto be well controlled. Otherwise has hx of GERD, ) History Source History Obtained from:: Patient and Chart Anesthesia Focused Assessment* Temperature: 97.7 F Pulse Rate: 91 Blood Pressure: 109/82 Respiratory Rate: 16 Pulse Ox: 99 Oxygen Delivery Method: Room Air Airway Assessment Mouth opens: >3 cm Mallampati Score: II Teeth Condition: Intact and Chipped/Broken (top left) Neck Range of motion (ROM): Full ROM Focused Labs Anesthesia Preop lab: CBC WBC 10.1 K/mm3 (4.4-11.0) 03/18/24 21:51 03/18/24 RBC 4.71 M/mm3 (4.2-5.4) 03/18/24 21:51 03/18/24 Hgb 14.0 g/dL (12.0-15.0) 03/18/24:51 03/18/24 Hct 41.4 % (37-47) 03/18/24 21:51 03/18/24 Plt Count 327 K/mm3 (150-450) 03/18/24 21:51 03/18/24 CHEMISTRY Potassium 3.8 mmol/L (3.5-5.1) 03/18/24 21:51 03/18/24 Sodium 140 mmol/L (136-145) 03/18/24 21:51 03/18/24 BUN 16 mg/dL (7-18) 03/18/24 21:51 03/18/24 Creatinine 0.75 mg/dL (0.55-1.02) 03/18/24 21:51 03/18/24 Glucose 114 mg/dL (74-106) H 03/18/24 21:51 03/18/24 COAG Pre-Assessment Diagnosis/Proposed Procedure Planned Operative Procedure(s): COLONOSCOPY Anesthesia History 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 When Was Last Pacemaker Check QUESTION #4 FULL TEXT: You/Your Family Experience fever (hyperthermia) with Anesthesia Last Oral Intake Last Oral intake: Last Oral Intake NPO since 03:00 08/14/24 06:07 Meds taken in AM with sips of water? Meds patient instructed to take am of surgery PONV PONV - business education professor: PONV - business education professor Female Yes 08/13/24 12:52 HX of Motion Sickness No 08/13/24 12:52 HX of N/V After Surgery No 08/13/24 12:52 Non-Smoker Yes 08/13/24 12:52 Duration of Surgery greater No 08/13/24 12:52 than 60 minutes Number of Risk Factors 2 03/17/25 12:52 PONV Score Moderate Risk 08/13/24 12:52 Height & Weight Height & Weight: Anesthesia: Height & Weight Height 5 ft 6 in 08/14/24 06:07 Weight: 82.9 kg 08/14/24 06:07 Body Mass Index (BMI) 29.5 08/14/24 06:07 Respiratory Assessment Respiratory Assessment - business education professor: Respiratory Tract Infection Hx - business education professor Hx Respiratory Tract Infection No 08/13/24 12:52 STOP Sleep Apnea STOP Sleep Apnea - business education professor: STOP Sleep Apnea - business education professor Hx Hypertension No 08/13/24 12:52 Hx Sleep Apnea No 08/13/24 12:52 CPAP BIPAP Do you snore loudly (louder No 08/13/24 12:52 than talking or can be heard Do you often feel tired/ Yes 08/13/24 12:52 fatigued/ sleepy during daytime? Has anyone observed you stop No 08/13/24 12:52 breathing during sleep? STOP Results Negative 08/13/24 12:52 QUESTION #5 FULL TEXT : Do you snore loudly (louder than talking or can be heard through closeddoors)? 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 Specify any problems Hx of Preganancy in last 3 No 08/13/24 12:52 Months Nurse Filling Out Transfusion MGRIFFITH 08/13/24 12:52 & Questions: Date: 08/13/24 08/13/24 12:52 Time: 12:53 08/13/24 12:52 Patient unable to answer at this time (ie. confused, unrespo /Reproduction History /Reproductive History - business education professor: /Reproductive Hx- business education professor Hx Now Gestational Age (in weeks): EDC: Hx Hx Para Hx Section SAB PFSH Medical History Gastric reflux Migraine headache Depression High cholesterol Schizophrenia Bipolar disorder Anxiety Non-smoker Elevated liver enzymes Calculus of gallbladder without cholecystitis without obstruction Transaminitis Home Medications ?Medication ?Instructions ?Recorded ?Last Taken ?Type benztropine 0.5 mg tablet 0.5 mg PO BID 12/29/2308/13 History lamotrigine 200 mg tablet 200 mg PO BID 12/29/2308/13 History donepezil 5 mg tablet (Aricept) 5 mg PO QHS 03/19/24 0 08/13/24 History docusate sodium 100 mg capsule 100 mg PO BID PRN const ipation 06/20/24 Unknown History famotidine 40 mg tablet 40 mg PO QHS #90 tabs 08/13/24 Rx melatonin 3 mg capsule 3 mg PO HS 06/20/24 08/13/24 History mirtazapine 15 mg tablet 15 mg PO QHS 06/20/24 History omeprazole 20 mg capsule,delayed 20 mg PO QDAY 5 Unknown History release paliperidone 6 mg tablet,extended 6 mg PO QAM 06/20/24 08/13/24 History release 24 hr polyethylene glycol 3350 17 4 g PO QDAY 06/20/2408/13 History gram/dose oral powder potassium chloride 20 mEq 20 meq PO QDAY 06/20/2407/28 History tablet,extended release acetaminophen 325 mg capsule 325 mg PO Q4H PRN fever o r pain 08/13/24 Unknown History Allergy/AdvReac Type Severity Reaction Status Date / Time blue dye Allergy PT UNSURE Verified 08/14/24 06:05 OF REACTION monosodium glutamate (msg) Allergy PT UNSURE Verified 08/14/24 06:05 OF REACTION sertraline (From Zoloft) Allergy PT UNSURE Verified 08/14/24 06:05 OF REACTION shellfish derived Allergy PT UNSURE Verified 08/14/24 06:05 OF REACTION Sulfa (Sulfonamide Allergy unknown Verified 08/14/24 06:05 Antibiotics) Social History Smoking Status: Never smoker Review of Systems (Anesthesia) ROS Narrative System reviewed and no additional complaints, except as documented. Physical Exam Const alert, oriented x3 and average body habitus Resp normal respiratory effort, normal air movement and clear to auscultation bilaterally Cardio regular rate, regular rhythm, no murmurs and diaphoretic 08/14/24 0628 > Date _ Tre Frederick MD Cosigner Signature: Date CC: ~ Signed [facility]12-09-2024 Evaluation note* Diagnosis Onset Date Resolution Status Admit Date Altered mental status acute Dec ember 2023 11:36am Hallucinations acute May 072023 11:36am Seizures acute May 07, 2024 11:36am GERD (gastroesophageal reflu x disease) acute June 20 9:15am Personal history of colonic polyps acute June 20 9:15am GERD (gastroesophageal reflu x disease) acute August 14, 2024 5:42am Personal history of colonic polyps acute August 14, 2024 5:42am [facility] Work Phone: [phone] 422-541907-05-2023 Hospital Discharge instructions Patient Education 12/01/2022 20:12:05 Fall Prevention Fall Prevention Falls often occur due to slipping, tripping or losing your balance. Millions of people fall every year and injure themselves. Here are ways to reduce your risk of falling again. Think about your fall, was there anything that caused your fall that can be fixed, removed, or replaced? Make your home safe by keeping walkways clear of objects you may trip over, such as electric cords. Use non-slip pads under rugs. Don't use area rugs or small throw rugs. Use non-slip mats in bathtubs and showers. Install handrails and lights on staircases. The handrails should be on both sides of the stairs. Don't walk in poorly lit areas. Don't stand on chairs or wobbly ladders. Use caution when reaching overhead or looking upward. This position can cause a loss of balance. Be sure your shoes fit properly, have non-slip bottoms and are in good condition. Wear shoes both inside and out. Don't go barefoot or wear slippers. Be cautious when going up and down stairs, curbs, and when walking on uneven sidewalks. If your balance is poor, consider using a cane or walker. If your fall was related to alcohol use, stop or limit alcohol intake. If your fall was related to use of sleeping medicines, talk to your healthcare provider about this.You may need to reduce your dosage at bedtime if you awaken during the night to go to the bathroom. To reduce the need for nighttime bathroom trips: oDon't drink fluids for several hours before going to bed oEmpty your bladder before going to bed oMen can keep a urinal at the bedside Stay as active as you can. Balance, flexibility, strength, and endurance all come from exercise. They all play a role in preventing falls. Ask your healthcare provider which types of activity are right for you. Get your vision checked on a regular basis. If you have pets, know where they are before you stand up or walk so you don't trip over them. Use night lights. Go over all your medicines with a pharmacist or other healthcare provider to see if any of them could make you more likely to fall. [id number] [employer]. [address] [place] [address]. All rights reserved. This information is not intended as a substitute for professional medical care. Always follow yourhealthcare professional's instructions. Follow Up Care 12/01/2022 16:28:41 With:PHYSICIAN, NOT RECORDED Address:Unknown When:2-4 days [facility] 2023 Note Discharge Instructions Thank you for allowing [facility] to assist you with your healthcare needs. The following is importantdischarge information regarding your hospital visit. Diagnosis from Today's Visit Fall What to Do Next Instructions from Your Care Team No qualifying data available. Post Acute Orders No qualifying data available. You Need to Schedule the Following Appointments Follow Up with PHYSICIAN, NOT RECORDED When Within 2-4 days Allergies Blue Dye MSG Zoloft shellfish sulfa drug unknown antibiotic (non-codified) Medications Please ask your primary doctor or pharmacist before taking any other medication not listed, including over the counter drugs, herbal medications, vitamins and or supplements as they may interact withyour home medications. What How Much When Instructions Last Dose Unchanged acetaminophen (Tylenol) by mouth Unchanged APAP/ ASA/ caffeine (Excedrin Extra Strength oral tab (250/ 250/ 65)) 2 tab(s) by mouth Every 6 hours Unchanged atorvastatin by mouth Once a day Unchanged benztropine by mouth Unchanged cholecalciferol (Vitamin D3) 10 Microgram by mouth Every day Unchanged FLUoxetine by mouth Unchanged herbal/ nutritional product (Probiotic) Unchanged lamoTRIgine (lamoTRIgine 25 mg oral tablet) 1 tab(s) by mouth Two (2) times a day Unchanged perphenazine by mouth Two (2) times a day Unchanged traZODone by mouth Unchanged ubiquinone (elppa CoQ10) Unknown Strength (NEEDS CLARIFIED) by mouth Once a day Please take this list to your next doctor s visit. Bring all medications you take, including over the counter medications, herbals and other supplements with you to your doctor s visit. Patients and families are reminded to discard old lists and to update any records with all medication providers or retail pharmacies. Education Materials Fall Prevention Falls often occur due to slipping, tripping or losing your balance. Millions of people fall every year and injure themselves. Here are ways to reduce your risk of falling again. Think about your fall, was there anything that caused your fall that can be fixed, removed, or replaced? Make your home safe by keeping walkways clear of objects you may trip over, such as electric cords. Use non-slip pads under rugs. Don't use area rugs or small throw rugs. Use non-slip mats in bathtubs and showers. Install handrails and lights on staircases. The handrails should be on both sides of the stairs. Don't walk in poorly lit areas. Don't stand on chairs or wobbly ladders. Use caution when reaching overhead or looking upward. This position can cause a loss of balance. Be sure your shoes fit properly, have non-slip bottoms and are in good condition. Wear shoes both inside and out. Don't go barefoot or wear slippers. Be cautious when going up and down stairs, curbs, and when walking on uneven sidewalks. If your balance is poor, consider using a cane or walker. If your fall was related to alcohol use, stop or limit alcohol intake. If your fall was related to use of sleeping medicines, talk to your healthcare provider about this.You may need to reduce your dosage at bedtime if you awaken during the night to go to the bathroom. To reduce the need for nighttime bathroom trips: oDon't drink fluids for several hours before going to bed oEmpty your bladder before going to bed oMen can keep a urinal at the bedside Stay as active as you can. Balance, flexibility, strength, and endurance all come from exercise. They all play a role in preventing falls. Ask your healthcare provider which types of activity are right for you. Get your vision checked on a regular basis. If you have pets, know where they are before you stand up or walk so you don't trip over them. Use night lights. Go over all your medicines with a pharmacist or other healthcare provider to see if any of them could make you more likely to fall. [phone] [employer]. [address] [place] [address]. All rights reserved. This information is not intended as a substitute for professional medical care. Always follow yourhealthcare professional's instructions. Additional Information VACCINATE! IT SAVES LIVES! Members of the community who have not yet received the COVID-19 vaccine and would like to receive it can visit one of [facility] vaccine clinics. There are many vaccine clinic locations within the [facility]. For locations and available times, please visit www.[email or web address].[place].gov/. It is important to note that some COVID mobile vaccine clinics are held outdoors and may be canceled in rainy or stormy conditions. To learn more about pediatric vaccinations (ages 5-11), we invite you to visit the [facility] webpage. https://www.[email or web address].org/pages/8486-Nvfsd-Wkknbmwxupy-Yddyneudnj-Xykuu-Ddv stions.htmlTo learn more about the COVID-19 vaccine, we invite you to visit the CDC website for a list of frequently asked questions. https://www.cdc.gov/coronavirus/2019-ncov/vaccines/faq.html [facility] Patient Portal Access Instructions: Stay connected with your healthcare team and access your personal medical information anytime with the [facility] Patient Portal. If you would like a full copy of your medical records please contact the [facility] Medical Records Department Tuesday through Tuesday between 8a.m. and 4:30p.m. Please follow the directions below to access the portal: 1.Access the email account you provided upon registration to the [facility].2.Look for an invitation email from [facility].3.Open the email and access the invitation link: Accept Invitation to [facility]4.Fill in the required estrada to create your account. Sign into [email or web address] with your username and password that you created in the above steps to stay up to date. You can then view a summary of results, a summary of your visits, and the ability to download your summaries to your computer or send the information securely to a physician. Remember that your healthcare information is confidential, so carefully consider who you will allow to register on the [facility] Patient Portal for access to your information. You can also access the [facility] Patient Portal on the [employer]. Simply click on Health Records under [employer] and then click on the [employer] logo. HOW TO SAFELY DISPOSE OF PRESCRIPTION MEDICATIONS Please use one of the following methods to safely dispose of your unused medications. 1.Use a drug disposal kit: the drug disposal pouch allows you to safely discard your old and unuseddrugs. Ask your nurse to give you one when you are discharged.2.Visit a local take-back location: Many local pharmacies and police departments have programs that collect old and unwanted prescriptiondrugs. Call your local pharmacy or go to http://bit.ly/3G1Xs1z to find one close to you.3.Make use of household items: Use cat litter or old coffee grounds to dispose medications if other options arenot available. Mix your drugs with these household products, seal them in an airtight container andthrow it into the garbage. Call [facility]: [phone] to be sure your drugs can be disposed of in this way. Some medicines may require a different approach.4.Never flush your medications down the toilet. IF YOU HAVE BEEN PRESCRIBED AN OPIOIDS FOR PAIN If you have been prescribed an opioid (such as hydrocodone, oxycodone or morphine), it is critical to understand the possible side effects and risks of opioid pain medications. Even when taken as directed, opioids can have several side effects including: Tolerance, meaning you might need to take more of a medication for the same pain relief. Nausea, vomiting and/or constipation. Sleepiness, dizziness, dry mouth, confusion, depression or itching. Physical dependence, meaning you have withdrawal symptoms when a medication is stopped ? this can develop within a few days. KNOW YOUR RESPONSIBILITIES It is important to know exactly how much and how often to take the opioid pain medications you are prescribed. Never take opioids in higher amounts or more often than prescribed. Do not combine opioids with alcohol or other drugs that cause drowsiness, such as benzodiazepines, also known as benzos,including diazepam and alprazolam, muscle relaxants or sleep aids. Never sell or share prescriptionopioids. This is illegal. Store opioids in a secure place and out of reach of others (including children, family, friends and visitors). The last page(s) of this document has been signed and retained as a CHART COPY Signatures Patient Education Materials Fall Prevention Medication Leaflets My discharge plan and instructions have been reviewed and explained to me and IMENG NICOLE understand my current condition and have read and understand these discharge instructions. I have received a written copy of the plan/instructions. If I have questions, I am aware that I should contact my d octor. 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 Multiplanar reformatted images are provided for review. Automated exposure control, iterative reconstruction, and/or weight based adjustment of the mA/kV was utilized to reduce the radiation dose to as low as reasonably achievable. COMPARISON: None. HISTORY: ORDERING SYSTEM PROVIDED HISTORY: Reason for Exam: fall FINDINGS: BONES/ALIGNMENT: There is no acute fracture or traumatic malalignment. DEGENERATIVE CHANGES: No significant degenerative changes. SOFT TISSUES: There is no prevertebral soft tissue swelling. IMPRESSION: No acute abnormality of the cervical spine. RECOMMENDATIONS: Unavailable Interpreted by: Osbaldo North Preliminary Report By: Osbaldo North Electronically signed By Osbaldo North Dictated Date: 12/01/2022 6:06:31 PM Prelim Date: 12/01/2022 6:07:24 PM Sign Date: 12/01/2022 6:07:24 PM Ordering Provider: SCOOTER BAILEY [facility]2023 Note ORIGINAL EXAMINATION: CT OF THE HEAD WITHOUT CONTRAST 12/01/2022 5:54 pm TECHNIQUE: CT of the head was performed without the administration of intravenous contrast. Automated exposure control, iterative reconstruction, and/or weight based adjustment of the mA/kV was utilized to reduce the radiation dose to as low as reasonably achievable. COMPARISON: None. HISTORY: ORDERING SYSTEM PROVIDED HISTORY: Reason for Exam: fall FINDINGS: BRAIN/VENTRICLES: There is no acute intracranial hemorrhage, mass effect or midline shift. No abnormal extra-axial fluid collection. The mclaughlin-white differentiation is maintained without evidence of an acute infarct. There is no evidence of hydrocephalus. ORBITS: The visualized portion of the orbits demonstrate no acute abnormality. SINUSES: The visualized paranasal sinuses and mastoid air cells demonstrate no acute abnormality. SOFT TISSUES/SKULL: No acute abnormality of the visualized skull or soft tissues. IMPRESSION: No acute intracranial abnormality. RECOMMENDATIONS: Unavailable Interpreted by: Shanika Smith Preliminary Report By: Shanika Smith Electronically signed By Shanika Smith Dictated Date: 12/01/2022 5:56:57 PM Prelim Date: 12/01/2022 5:57:36 PM Sign Date: 12/01/2022 5:57:36 PM Ordering Provider: [address]05-2023 Note ORIGINAL EXAMINATION: CT OF THE CERVICAL SPINE WITHOUT CONTRAST 12/01/2022 5:55 pm TECHNIQUE: CT of the cervical spine was performed without the administration of intravenous contrast. Multiplanar reformatted images are provided for review. Automated exposure control, iterative reconstruction, and/or weight based adjustment of the mA/kV was utilized to reduce the radiation dose to as low as reasonably achievable. COMPARISON: None. HISTORY: ORDERING SYSTEM PROVIDED HISTORY: Reason for Exam: fall FINDINGS: BONES/ALIGNMENT: There is no acute fracture or traumatic malalignment. DEGENERATIVE CHANGES: No significant degenerative changes. SOFT TISSUES: There is no prevertebral soft tissue swelling. IMPRESSION: No acute abnormality of the cervical spine. RECOMMENDATIONS: Unavailable Interpreted by: Osbaldo North Preliminary Report By: Osbaldo North Electronically signed By Osbaldo North Dictated Date: 12/01/2022 6:06:31 PM Prelim Date: 12/01/2022 6:07:24 PM Sign Date: 12/01/2022 6:07:24 PM Ordering Provider: [address]05-2023 Note ORIGINAL EXAMINATION: CT OF THE HEAD WITHOUT CONTRAST 12/01/2022 5:54 pm TECHNIQUE: CT of the head was performed without the administration of intravenous contrast. Automated exposure control, iterative reconstruction, and/or weight based adjustment of the mA/kV was utilized to reduce the radiation dose to as low as reasonably achievable. COMPARISON: None. HISTORY: ORDERING SYSTEM PROVIDED HISTORY: Reason for Exam: fall FINDINGS: BRAIN/VENTRICLES: There is no acute intracranial hemorrhage, mass effect or midline shift. No abnormal extra-axial fluid collection. The mclaughlin-white differentiation is maintained without evidence of an acute infarct. There is no evidence of hydrocephalus. ORBITS: The visualized portion of the orbits demonstrate no acute abnormality. SINUSES: The visualized paranasal sinuses and mastoid air cells demonstrate no acute abnormality. SOFT TISSUES/SKULL: No acute abnormality of the visualized skull or soft tissues. IMPRESSION: No acute intracranial abnormality. RECOMMENDATIONS: Unavailable Interpreted by: Shanika Smith Preliminary Report By: Shanika Smith Electronically signed By Shanika Smith Dictated Date: 12/01/2022 5:56:57 PM Prelim Date: 12/01/2022 5:57:36 PM Sign Date: 12/01/2022 5:57:36 PM Ordering Provider: [facility]07-03-2023 NoteHNO ID: [id number] Author: Ivett Agudelo MD Service: Neurology Adult Epilepsy Author Type: Physician Type: Progress Notes Filed: 11/29/2022 10:44 AM Note Text: NEUROLOGY EPILEPSY MONITORING UNIT ([facility]) PROGRESS NOTE SERVICE DATE: 11/29/2022 SERVICE TIME: 9:21 AM Subjective Patient had a 2E at 0844 on 11/29. Patient endorses worms in her vision that occur daily. She describes them as clear floaters that she typically sees at the bottom of her visual field and can also see them when her eyes are closed. She states that she has been experiencing these for a long time and states that they wax and wane throughout the day. No additional complaints or concern for events overnight. New Problems Since Admission: None Home Anti-Epileptic Drugs: LTG 200mg BID (for BPD) Anti Epileptic Drugs Here: LTG 200mg BID (for BPD) Objective 11/28/22203111/29/22 0026 11/29/22 0406 11/29/22 0753 BP: 99/62 104/58 107/56 119/72 Pulse: (!) 52 (!) 52 (!) 54 68 Resp: 16 16 16 16 Temp: 36.3 ?C (97.4 ?F) 36.5 ?C (97.7 ?F) 36.6 ?C (97.8 ?F) 36.9 ?C (98.4 ?F) TempSrc: Oral Oral Oral Oral SpO2: 96% 96% 94% 98% Weight: EKG, Telemetry, EEG, Monitors AND Alarms are on: Yes Written order: Remains standing. Seizure Detection Software on: Yes residential recycle driver has been Notified: Yes rotary bar operator has been Notified: Yes EXAM: Mental Status: Alert and oriented to person, place and time. Able to follow 1 and 2 step commands. Cranial Nerves: Pupils equal and reactive to light, extraocular muscles intact. No nystagmus, face symmetric. Motor: Moves all extremities equally. Sensation: Intact to light touch. Coordination: No dysmetria Exam otherwise unchanged. DATA: Diagnostic tests reviewed for today's visit: Most recent labs Assessment Active Hospital Problems Seizure-like activity (HCC) POA: Yes Transaminitis POA: Yes Assessment: 57 year old right handed female with a PMH of schizoaffective disorder, bipolar disorder, OCD, depression, anxiety and hallucinations admitted for diagnostic evaluation. 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 No prior EEG or MRI brain available for review. Currently taking LTG 200mg BID for bipolar disorder. Plan: - Continuous VEEG for seizure monitoring - ASM plan: Continue LTG 200mg BID - Seizure rescue plan: Ativan 2 mg IV for seizure >3 minutes or 3 or more seizures in 8 hours (if NO IV access give Midazolam 5 mg intramuscular) - Seizure and fall precautions - Neurochecks and vitals Q4H - Continuous telemetry and pulse ox monitoring - DVT ppx: ICPs bilaterally #Schizoaffective Disorder, Bipolar Disorder, OCD, Depression, Anxiety - Continue home Fluoxetine 60 mg daily, Perphenazine 8mg BID and Trazodone 50mg QHS - Consider psych consult #Tremor - Continue home Cogentin #Transaminitis, POA - Daily HFP - RUQ Ultrasound - Completed 11/27 Plan of care discussed with Provider, RN, Patient . SIGNATURE: Sonia Smith PA-C PATIENT NAME: Vidya Fan DATE: November 29, 2022 TIME: 9:22 AM EPILEPSY CENTER STAFF NOTE [facility] STAFF PHYSICIAN NOTE OF PERSONAL INVOLVEMENT IN CARE I have reviewed the progress note obtained and documented by the nurse practitioner and I personally participated in the cheatham components. I have discussed the case and management of the patient's care. The following comments revise or confirm relevant cheatham components of the note. IMPRESSION: This is a 57 year old RHF with PMH of schizoaffective disorder, bipolar disorder, OCD, depression, anxiety and hallucinations who established care with Dr. Stanley just yesterday. She is admitted for diagnostic evaluation. 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 Hallucination described as seeing animals, or seeing that things are moving and swaying sideways No prior EEG or MRI brain available for review. Currently taking LTG 200mg BID for bipolar disorder. The hallucinations are daily and have been happening for a long time but couldn't give a more specific answer. Sometimes gets headaches with these. She is diagnosed with migraines per reports. The day's recording was personally reviewed and the results are summarized below. VIDEO-EEG MONITORING DAILY REPORT: Interictal findings: None Ictal findings: 1E: abdominal pain. 2E: Typical visual hallucinations - worms in lower visual estrada. No EEG change 11/28: Reported abdominal pain on left side. US showed gall stones and benign ?hemangioma of liver. PLAN: Continue video-EEG monitoring (more content not included)...[facility]07-02-2023 NoteHNO ID: [id number] Author: Ivett Agudelo MD Service: Neurology Adult Epilepsy Author Type: Physician Type: Progress Notes Filed: 11/28/2022 10:29 AM Note Text: NEUROLOGY EPILEPSY MONITORING UNIT ([facility]) PROGRESS NOTE SERVICE DATE: 11/28/2022 SERVICE TIME: 9:23 AM Subjective No complaints this morning. 1E 11/27 at 1410 - patient reported having left sided upper abdominal pain. Patient reports that she has never been told that she has cholelithiasis but that her sister has a history of gall stones. New Problems Since Admission: None Home Anti-Epileptic Drugs: LTG 200mg BID (for BPD) Anti Epileptic Drugs Here: LTG 200mg BID (for BPD) Objective 11/27/22202411/28/22 0013 11/28/22 0428 07/02/23 0724 BP: 94/55 118/71 112/66 95/53 Pulse: (!) 56 (!) 56 (!) 55 (!) 52 Resp: 16 16 17 16 Temp: 36.8 ?C (98.3 ?F) 36.3 ?C (97.4 ?F) 36.5 ?C (97.7 ?F) 36.6 ?C (97.9 ?F) TempSrc: Oral Axillary Axillary Oral SpO2: 99% 96% 96% 96% Weight: 69.5 kg (153 lb 3.5 oz) EKG, Telemetry, EEG, Monitors AND Alarms are on: Yes Written order: Remains standing. Seizure Detection Software on: Yes residential recycle driver has been Notified: Yes rotary bar operator has been Notified: Yes EXAM: Mental Status: Alert and oriented to person, place and time. Able to follow 1 and 2 step commands. Cranial Nerves: Pupils equal and reactive to light, extraocular muscles intact. No nystagmus, face symmetric. Motor: Moves all extremities equally. Sensation: Intact to light touch. Coordination: Tremor to bilateral hands Exam otherwise unchanged. DATA: Diagnostic tests reviewed for today's visit: Most recent labs and imaging results. Component Latest Ref Rng AND Units 11/26/2022 11/27/2022 WBC 3.70 - 11.00 k/uL 7.11 RBC 3.90 - 5.20 m/uL 4.39 Hemoglobin 11.5 - 15.5 g/dL 13.2 Hematocrit 36.0 - 46.0 % 38.4 MCV 80.0 - 100.0 fL 87.5 MCH 26.0 - 34.0 pg 30.1 MCHC 30.5 - 36.0 g/dL 34.4 RDW-CV 11.5 - 15.0 % 12.1 Platelet Count 150 - 400 k/uL 232 MPV 9.0 - 12.7 fL 8.6 (L) Neut% % 66.5 Abs Neut (ANC) 1.45 - 7.50 k/uL 4.73 Lymph% % 21.8 Abs Lymph 1.00 - 4.00 k/uL 1.55 [place]% % 8.6 Abs [place] <0.87 k/uL 0.61 Eosin% % 2.4 Abs Eosin <0.46 k/uL 0.17 Baso% % 0.6 Abs Baso <0.11 k/uL 0.04 Immature Gran % % 0.1 IMMATURE GRANS (ABS) <0.10 k/uL <0.03 NRBC /100 WBC 0.0 Absolute nRBC <0.01 k/uL <0.01 DTYPE Auto Protein, Total 6.3 - 8.0 g/dL 6.7 6.7 Albumin 3.9 - 4.9 g/dL 3.9 3.9 Calcium 8.5 - 10.2 mg/dL 9.4 Bilirubin, Total 0.2 - 1.3 mg/dL 0.4 0.6 Alkaline Phosphatase 34 - 123 U/L 91 98 AST 13 - 35 U/L 42 (H) 40 (H) ALT 7 - 38 U/L 69 (H) 80 (H) Glucose 74 - 99 mg/dL 98 BUN 7 - 21 mg/dL 15 Creatinine 0.58 - 0.96 mg/dL 0.92 Sodium 136 - 144 mmol/L 140 Potassium 3.7 - 5.1 mmol/L 3.7 Chloride 97 - 105 mmol/L 103 CO2 22 - 30 mmol/L 24 Anion Gap 9 - 18 mmol/L 13 eGFR >=60 mL/min/1.73mA? 73 Phencyclidine Negative Negative Benzodiazepines Urine Negative Negative Cocaine Urine Negative Negative Amphetamines Negative Negative Cannabinoids, Urine Negative Negative Opiates Negative Negative Barbiturates Negative Negative Ethanol, Urine <11 mg/dL <11 Oxycodone, Urine Negative Negative Bilirubin, Conjug <0.2 mg/dL <0.2 PT Sec 9.7 - 13.0 sec 10.9 PT INR 0.9 - 1.3 1.1 Magnesium 1.7 - 2.3 mg/dL 2.1 Phosphorus 2.7 - 4.8 mg/dL 3.6 APTT 23.0 - 32.4 sec 28.3 TSH 0.270 - 4.200 mIU/L 1.610 Component Latest Ref Rng AND Units 11/28/2022 Albumin 3.9 - 4.9 g/dL 3.9 Bilirubin, Total 0.2 - 1.3 mg/dL 0.5 Bilirubin, Conjug <0.2 mg/dL 0.2 (H) Alkaline Phosphatase 34 - 123 U/L 97 AST 13 - 35 U/L 31 ALT 7 - 38 U/L 72 (H) Protein, Total 6.3 - 8.0 g/dL 6.8 RUQ Ultrasound: IMPRESSION: Cholelithiasis without secondary signs of acute cholecystitis. 1.2 cm right hepatic lobe lesion, most commonly a benign hemangioma. Assessment Active Hospital Problems Seizure-like activity (HCC) POA: Yes Transaminitis POA: Yes Assessment: 57 year old right handed female with a PMH of schizoaffective disorder, bipolar disorder, OCD, depression, anxiety and hallucinations admitted for diagnostic evaluation. 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 No prior EEG or MRI brain available for review. Currently taking LTG 200mg BID for bipolar disorder. Plan: - Continuous VEEG for seizure monitoring - ASM plan: Continue LTG 200mg BID - Seizure rescue plan: Ativan 2 mg IV for seizure >3 minutes or 3 or more seizures in 8 hours (if NO IV access give Midazolam 5 mg intramuscular) - Seizure and fall precautions - Neurochecks and vitals Q4H - Continuous telemetry and pulse ox monitoring - Admission labs pending - DVT ppx: ICPs bilaterally #Schizoaffective Disorder, Bipolar Disorder, OCD, Depression, Anxiety - Continue home Fluoxetine 60 mg daily, Perphenazine 8mg BID and Trazodone 50mg QHS (more content not included)...[facility]07-01-2023 Note HNO ID: [id number] Author: RT Rosario(Araceli) Service: Radiology Author Type: Technologist Type: Progress Notes Filed: 11/27/2022 4:13 PM Note Text: Radiology Service Progress Note PATIENT NAME: Vidya Fan DATE OF SERVICE: November 27, 2022 TIME: 4:13 PM PATIENT IDENTITY VERIFICATION COMPLETED USING TWO (2) IDENTIFIERS: Name and Date of confirmed by patient verbally and Name and Date of confirmed by identification band. FALL SCREENING: Has the patient had 2 falls in the last year or 1 fall with injury or currently using an Ambulatory Assistive Device (Walker, Cane, Wheelchair, Crutches, etc.)? Inpatient: Screened on floor PATIENT GENDER DATA: Female. status: : No status: N/A PATIENT RELEVANT IMPLANT DATA REVIEWED: Not Applicable RADIOLOGY DEPARTMENT: Ultrasound PERIPHERAL IV DATA: Not applicable SIGNED BY: RT Rosario(R) November 27, 2022 4:13 [facility]07-01-2023 NoteHNO ID: [id number] Author: Ivett Agudelo MD Service: Neurology Adult Epilepsy Author Type: Physician Type: Progress Notes Filed: 11/27/2022 10:33 AM Note Text: NEUROLOGY EPILEPSY MONITORING UNIT ([facility]) PROGRESS NOTE SERVICE DATE: 11/27/2022 SERVICE TIME: 9:32 AM Subjective No complaints. No seizures overnight. New Problems Since Admission: None Home Anti-Epileptic Drugs: LTG 200mg BID (for BPD) Anti Epileptic Drugs Here: LTG 200mg BID (for BPD) Objective 11/26/22 1932 11/26/22232011/27/227 11/27/22726 BP: 114/67 112/69 96/52 100/63 Pulse: (!) 58 64 (!) 59 (!) 58 Resp: 18 18 18 17 Temp: 36.5 ?C (97.7 ?F) 36.4 ?C (97.5 ?F) 36.3 ?C (97.4 ?F) 36.5 ?C (97.7 ?F) TempSrc: Oral Oral Oral Oral SpO2: 98% 94% 95% 96% Weight: 67.1 kg (147 lb 14.9 oz) EKG, Telemetry, EEG, Monitors AND Alarms are on: Yes Written order: Remains standing. Seizure Detection Software on: Yes residential recycle driver has been Notified: Yes rotary bar operator has been Notified: Yes EXAM: Mental Status: Alert and oriented to person, place and time. Able to follow 1 and 2 step commands. Cranial Nerves: Pupils equal and reactive to light, extraocular muscles intact. No nystagmus, face symmetric. Motor: Moves all extremities equally. Sensation: Intact to light touch. Coordination: Tremor to bilateral hands Exam otherwise unchanged. DATA: Diagnostic tests reviewed for today's visit: Most recent labs and imaging results. Component Latest Ref Rng AND Units 11/26/2022 11/27/2022 WBC 3.70 - 11.00 k/uL 7.11 RBC 3.90 - 5.20 m/uL 4.39 Hemoglobin 11.5 - 15.5 g/dL 13.2 Hematocrit 36.0 - 46.0 % 38.4 MCV 80.0 - 100.0 fL 87.5 MCH 26.0 - 34.0 pg 30.1 MCHC 30.5 - 36.0 g/dL 34.4 RDW-CV 11.5 - 15.0 % 12.1 Platelet Count 150 - 400 k/uL 232 MPV 9.0 - 12.7 fL 8.6 (L) Neut% % 66.5 Abs Neut (ANC) 1.45 - 7.50 k/uL 4.73 Lymph% % 21.8 Abs Lymph 1.00 - 4.00 k/uL 1.55 [place]% % 8.6 Abs [place] <0.87 k/uL 0.61 Eosin% % 2.4 Abs Eosin <0.46 k/uL 0.17 Baso% % 0.6 Abs Baso <0.11 k/uL 0.04 Immature Gran % % 0.1 IMMATURE GRANS (ABS) <0.10 k/uL <0.03 NRBC /100 WBC 0.0 Absolute nRBC <0.01 k/uL <0.01 DTYPE Auto Protein, Total 6.3 - 8.0 g/dL 6.7 6.7 Albumin 3.9 - 4.9 g/dL 3.9 3.9 Calcium 8.5 - 10.2 mg/dL 9.4 Bilirubin, Total 0.2 - 1.3 mg/dL 0.4 0.6 Alkaline Phosphatase 34 - 123 U/L 91 98 AST 13 - 35 U/L 42 (H) 40 (H) ALT 7 - 38 U/L 69 (H) 80 (H) Glucose 74 - 99 mg/dL 98 BUN 7 - 21 mg/dL 15 Creatinine 0.58 - 0.96 mg/dL 0.92 Sodium 136 - 144 mmol/L 140 Potassium 3.7 - 5.1 mmol/L 3.7 Chloride 97 - 105 mmol/L 103 CO2 22 - 30 mmol/L 24 Anion Gap 9 - 18 mmol/L 13 eGFR >=60 mL/min/1.73mA? 73 Phencyclidine Negative Negative Benzodiazepines Urine Negative Negative Cocaine Urine Negative Negative Amphetamines Negative Negative Cannabinoids, Urine Negative Negative Opiates Negative Negative Barbiturates Negative Negative Ethanol, Urine <11 mg/dL <11 Oxycodone, Urine Negative Negative Bilirubin, Conjug <0.2 mg/dL <0.2 PT Sec 9.7 - 13.0 sec 10.9 PT INR 0.9 - 1.3 1.1 Magnesium 1.7 - 2.3 mg/dL 2.1 Phosphorus 2.7 - 4.8 mg/dL 3.6 APTT 23.0 - 32.4 sec 28.3 TSH 0.270 - 4.200 mIU/L 1.610 Assessment Active Hospital Problems Seizure-like activity (HCC) POA: Yes Transaminitis POA: Yes Assessment: 57 year old right handed female with a PMH of schizoaffective disorder, bipolar disorder, OCD, depression, anxiety and hallucinations admitted for diagnostic evaluation. 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 No prior EEG or MRI brain available for review. Currently taking LTG 200mg BID for bipolar disorder. Plan: - Continuous VEEG for seizure monitoring - ASM plan: Continue LTG 200mg BID - Seizure rescue plan: Ativan 2 mg IV for seizure >3 minutes or 3 or more seizures in 8 hours (if NO IV access give Midazolam 5 mg intramuscular) - Seizure and fall precautions - Neurochecks and vitals Q4H - Continuous telemetry and pulse ox monitoring - Admission labs pending - DVT ppx: ICPs bilaterally #Schizoaffective Disorder, Bipolar Disorder, OCD, Depression, Anxiety - Continue home Fluoxetine 60 mg daily, Perphenazine 8mg BID and Trazodone 50mg QHS - Consider psych consult #Tremor - Continue home Cogentin #Transaminitis, POA - Daily HFP - RUQ Ultrasound Plan of care discussed with Provider, RN, Patient . SIGNATURE: Lynn Banerjee APRN.CNP PATIENT NAME: Vidya Fan DATE: November 27, 2022 TIME: 9:32 AM EPILEPSY CENTER STAFF NOTE [facility] STAFF PHYSICIAN NOTE OF PERSONAL INVOLVEMENT IN CARE I have reviewed the progress note obtained and documented by the nurse practitioner and I personally participated in the cheatham components. I have discussed the case and management of the patient's care. The following comments revise or confirm relevant ke (more content not included)...[facility]06-30-2023 NoteHNO ID: [id number] Author: Peace Stanley MD Service: ? Author Type: Physician Type: Progress Notes Filed: 11/26/2022 2:56 PM Note Text: [facility] Patient Name: Vidya SERRA Date of : 1965 Referring Provider: Dona Gabriel [address] [facility] [id number] INITIAL EPILEPSY CLINIC NOTE 11/26/2022 2:00 PM CHIEF COMPLAINT: New Patient HISTORY OF PRESENT ILLNESS Ms. Fan is a 57 year old right-handed female seen in [facility] for initial consultation. At today's visit, the patient is accompanied by: artificial foliage arranger from group home Handedness: right-handed Age of onset: Seizure History and Evolution Patient accepted for admission to EMU and scheduled to see me prior to admission. Per record review: Onset: Unsure Recent Seizure Frequency: Daily Seizure Description(s) Available: Type A: Aura of a spot in her vision followed by patient report; Per Leslie (nurse) pt has history of hallucinations, anxiety. Dx of psychosis and other disorders which family says is epilepsy Duration: Variable History obtained today: She is a diagnosed schizophrenic, bipolar disorder, OCD, depression, and anxiety. Has lived in group home for years. Here with artificial foliage arranger from group home who just met her 4 days ago. Neither know why she is here exactly. Patient talks about her emotional problems and not acting right. She is calm and answers questions but has tangential thinking and difficulty providing a lot of detail. She does acknowledge some visual hallucinations sometimes, like seeing animals, or seeing that things are moving and swaying sideways. Says this has been happening for a long time but couldn't give a more specific answer. Sometimes gets headaches with these. She is diagnosed with migraines according to the facesheet that came with her from group home. She is certain that she never passed out. Never had motor symptoms concerning for seizures my hands shake but when I sit on them that stops (she has a diagnosis of tremor). Never bit tongue or wet herself. Info captured in review of records needs some adjustin- EEG and MRI have not been done. She actually had a few EEGs that were normal. 2- trialed 0 AEDs. This is also inacccurate. At least now, she is on Lamotrigine which she has been on for years for bipolar disorder. next of kin is Tosin Douglas (sister): [phone]. Syl Dean (referring physician): [phone] Trevorrain Chirinos number: [phone]. ask for [place]. Nurse is Leslie. I called all numbers above but nobody responded. Was put on hold for 20 min with Rojas Chirinos. Got voicemail for sister. No one answered in doctor's office. Per review of records: Review of records for Vidya Fan, a 57 year old female, being referred by Dr. Syl Dean [[facility] Chir[facility]] to Any Epileptologist for diagnosis. Patient has previously diagnosed transient vision changes. Patient has trialed 0 AEDs. As this patient is having daily episode and her family believe these are related to epilepsy, VEEG is indicated for event characterization and diagnostic evaluation to determine best treatment options. Summary: Onset: Unsure Recent Seizure Frequency: Daily Seizure Description(s) Available: Type A: Aura of a spot in her vision followed by patient report; Per Leslie (nurse) pt has history of hallucinations, anxiety. Dx of psychosis and other disorders which family says is epilepsy Duration: Variable Current AED(s): ? None Previous AED(s): ? None PMH: hallucinations, anxiety, psychosis PRIOR EVALUATIONS: ? EEG (NA): ? MRI brain wo/w contrast (NA): [facility]TRAN Recommendations: - Admit to EMU for VEEG monitoring, diagnostic evaluation Location: [facility] [place] - Visit with epileptologist prior to admission - Additional testing to be considered by epilepsy clinicians Total # of Current Anti-seizure Medications: Side Effects to Current Anti-seizure Medications: Seizure Frequency at First Visit: Longest Seizure-free Interval: CURRENT OUTPATIENT ANTISEIZURE MEDICATIONS (as of the start of the encounter) lamoTRIgine (LAMICTAL) 200 mg tablet (Taking) Prior Anti-seizure Therapies: Trial Adequacy: Max Daily Dose Achieved: Side Effects: Effectiveness: Comments: Lamotrigine, other use Comorbidities: Episode Description: Patient Entered Data: EPILEPSY SCORE No Data PHQ-9 SCORE - CHUNG 2 SCORE - CHUNG 7 SCORE - QOLIE-10 SCORE (0=worst; 100=best QoL - higher scores represent better function) - LSSS SCORE (0- no seizures 100- most severe possible seizures) - C-SSRS SCREEN - On average, how many hours of sleep do you get in a 24-hour period? - PROMIS Sleep Disturbance T-S (more content not included)...[facility]06-30-2023 History of Present illness Narrative* Peace Stanley MD - 11/26/2022 2:46 PM EDT [facility] Patient Name: Vidya SERRA Date of : 1965 Referring Provider: Dona Gabriel [address] [facility] [id number] INITIAL EPILEPSY CLINIC NOTE 11/26/2022 2:00 PM CHIEF COMPLAINT: New Patient HISTORY OF PRESENT ILLNESS Ms. Fan is a 57 year old right-handed female seen in [facility] for initial consultation. At today's visit, the patient is accompanied by: artificial foliage arranger from group home Handedness: right-handed Age of onset: Seizure History and Evolution Patient accepted for admission to EMU and scheduled to see me prior to admission. Per record review: Onset: Unsure Recent Seizure Frequency: Daily Seizure Description(s) Available: Type A: Aura of a spot in her vision followed by patient report; Per Leslie (nurse) pt has history of hallucinations, anxiety. Dx of psychosis and other disorders which family says is epilepsy Duration: Variable History obtained today: She is a diagnosed schizophrenic, bipolar disorder, OCD, depression, and anxiety. Has lived in group home for years. Here with artificial foliage arranger from group home who just met her 4 days ago. Neither know why she is here exactly. Patient talks about her emotional problems and not acting right. She iscalm and answers questions but has tangential thinking and difficulty providing a lot of detail. She does acknowledge some visual hallucinations sometimes, like seeing animals, or seeing that things are moving and swaying sideways. Says this has been happening for a long time but couldn't give liane specific answer. Sometimes gets headaches with these. She is diagnosed with migraines according to the facesheet that came with her from group home. She is certain that she never passed out. Never had motor symptoms concerning for seizures my hands shake but when I sit on them that stops (she has a diagnosis of tremor). Never bit tongue or wet herself. Info captured in review of records needs some adjustin- EEG and MRI have not been done. She actually had a few EEGs that were normal. 2- trialed 0 AEDs. This is also inacccurate. At least now, she is on Lamotrigine which she has been on for years for bipolar disorder. next of kin is Tosin Douglas (sister): [phone]. Syl Dean (referring physician): [phone] Rojas Chirinos number: [phone]. ask for [email or web address]. Nurse is Leslie. I called all numbers above but nobody responded. Was put on hold for 20 min with Rojas Chirinos. Got voicemail for sister. No one answered in doctor's office. Per review of records: Review of records for Vidya Fan, a 57 year old female, being referred by Dr. Syl Dean [[facility]] to Any Epileptologist for diagnosis. Patient has previously diagnosed transient vision changes. Patient has trialed 0 AEDs. As this patient is having daily episode and her family believe these are related to epilepsy, VEEG is indicated for event characterization and diagnostic evaluation to determine best treatment options. Summar y: Onset: Unsure Recent Seizure Frequency: Daily Seizure Description(s) Available: Type A: Aura of a spot in her vision followed by patient report; Per Leslie (nurse) pt has history of hallucinations, anxiety. Dx of psychosis and other disorders which family says is epilepsy Duration: Variable Current AED(s): None Previous AED(s): None PMH: hallucinations, anxiety, psychosis PRIOR EVALUATIONS: EEG (NA): MRI brain wo/w contrast (NA): BELTRAN Recommendations: - Admit to EMU for VEEG monitoring, diagnostic evaluation Location: [facility] [place] - Visit with epileptologist prior to admission - Additional testing to be considered by epilepsy clinicians Total # of Current Anti-seizure Medications: Side Effects to Current Anti-seizure Medications: Seizure Frequency at First Visit: Longest Seizure-free Interval: CURRENT OUTPATIENT ANTISEIZURE MEDICATIONS (as of the start of the encounter) lamoTRIgine (LAMICTAL) 200 mg tablet (Taking) Prior Anti-seizure Therapies: Trial Adequacy: Max Daily Dose Achieved: Side Effects: Effectiveness: Comments: Lamotrigine, other use Comorbidities: Episode Description: Patient Entered Data: EPILEPSY SCORE No Data PHQ-9 SCORE - CHUNG 2 SCORE - CHUNG 7 SCORE - QOLIE-10 SCORE (0=worst; 100=best QoL - higher scores represent better function) - LSSS SCORE (0- no seizures 100- most severe possible seizures) - C-SSRS SCREEN - On average, how many hours of sleep do you get in a 24-hour period? - PROMIS Sleep Disturbance T-SCORE - Have you been diagnosed with Sleep Apnea? 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 Patient however tells me today that she had EEG den twice and it was always fine. Other caregivers: Primary Care Provider: No primary care provider on file. No current facility-administered medications for this visit. No current outpatient medications on file. Facility-Administered Medications Ordered in Other Visits Medication Dose Route Frequency NaCl 0.9% iv flush bag 20 mL INTRAVENOUS PRN acetaminophen 325-650 mg tab(s) (TYLENOL) 325-650 mg ORAL q 4 H PRN ibuprofen 400 mg tab(s) (MOTRIN) 400 mg ORAL/FEEDING TUBE q 6 H PRN LORazepam 2 mg injection (ATIVAN) 2 mg INTRAVENOUS q 5 MIN PRN midazolam (PF) 5 mg injection (VERSED) 5 mg INTRAMUSCULAR q 24 H PRN diphenhydrAMINE 25 mg (BENADRYL) 25 mg ORAL q 8 H PRN ALLERGIES Allergen Reactions Sulfa (Sulfonamide * Rash PAST MEDICAL HISTORY Diagnosis Date Bipolar disorder (HCC) Depression Dry mouth Generalized anxiety disorder Insomnia Migraine, intractable Mixed hyperlipidemia Psychosis, affective (HCC) Tremor Vitamin D deficiency PAST SURGICAL HISTORY Procedure Laterality Date COLONOSCOPY SCREENING FAMILY HISTORY Problem Relation Age of Onset Hypertension Mother SOCIAL HISTORY: -Lives in [place], [place] -Patient lives alone? -Vocation: -Education: -Cigarette, alcohol, substance use: -Functional status: -Patient driving? Review of Systems VITAL SIGNS: BP 102/67 (BP Site: Left Arm, BP Position: Sitting, BP Cuff Size: Regular Adult) Pulse 73 Resp 18 Ht 165.1 cm (5' 5) Wt 70.8 kg (156 lb) SpO2 96% BMI 25.96 kg/m General Examination: General Exam Neurological Exam Reflexes Deep tendon reflexes graded by MRC IMPRESSION: Visual symptoms for years in the context of clear psychiatric comorbidities and migraines, never evolving into motor manifestations or loss of consciousness. Epilepsy is unlikely, but can be clarified with planned diagnostic VEEG Classification Summary PLAN: proceed with VEEG Testing Ordered CBC CMP Education Patient was given my clinic contact information. I discussed the risks, benefits and alternatives of the medical plan with the patient. Questions were answered. The patient agreed with the plan as discussed. FOLLOW-UP: Return if symptoms worsen or fail to improve. I spent a total of 60 minutes on the date of the service which included: preparing to see the patient [id number] patient care completing clinical documentation obtaining and/or reviewing separately obtained history Peace Stanley MD cc: Primary Care Physician: No primary care provider on file. No primary provider on file. Referring: Dona Gabriel [address] [facility] [address] Patient: Ms. Vidya Fan [id number] [facility] [id number] [facility] NoteHNO ID: [id number] Author: Dona Gabriel APRN.PANEL MACHINE SETTER Service: ? Author Type: Nurse Practitioner Type: Progress Notes Filed: 11/05/2022 11:15 AM Note Text: [facility] Review of Records Patient: Vidya Fan Address: [facility] [address] Impression: Review of records for Vidya Fan, a 57 year old female, being referred by Dr. Syl Dean [[facility]] to Any Epileptologist for diagnosis. Patient has previously diagnosed transient vision changes. EEG and MRI have not been done. Patient has trialed 0 AEDs. As this patient is having daily episode and her family believe these are related to epilepsy, VEEG is indicated for event characterization and diagnostic evaluation to determine best treatment options. Summary: Onset: Unsure Recent Seizure Frequency: Daily Seizure Description(s) Available: Type A: Aura of a spot in her vision followed by patient report; Per Leslie (nurse) pt has history of hallucinations, anxiety. Dx of psychosis and other disorders which family says is epilepsy Duration: Variable Current AED(s): None Previous AED(s): None PMH: hallucinations, anxiety, psychosis PRIOR EVALUATIONS: EEG (NA): MRI brain wo/w contrast (NA): BELTRAN Recommendations: - Admit to EMU for VEEG monitoring, diagnostic evaluation Location: Main [place] - Visit with epileptologist prior to admission - Additional testing to be considered by epilepsy clinicians Signed: Dona Gabriel APRN.PANEL MACHINE SETTER November 05, [address] Simpson for review and recommendations. MD Recommendations (as discussed with Dr. Simpson): - Please proceed with the above plan. Please route this encounter to the EMU Scheduling Pool (P EMU) or PMU Scheduling Pool (P PMU) through LOS AND Follow up PHASE 1.0 AND 1.5 ORDER SYNOPSIS Patient: Vidya Fan ([id number]) Best contact number: [phone] Insurance: Payor: [employer] / Plan: [email or web address] [facility] / Product Type: Medicaid / ----- Scheduling Team: Please call for adult patients: Stella Love ([phone]) Carmen Hernandez ([phone]) Lou Laughlin([phone]) Tanvi Paulson([phone]) Please call for pediatric patients: Carmen Hernandez ([phone]) Lou Laughlin ([phone]) Stella Love ([phone]) Tanvi Paulson([phone]) ----- 11/05/2022 Admission Type EMU Adult Number of Days requested 3 Location [facility] Admit Priority Routine PURPOSE 11/05/2022 Patient Being Considered for Epilepsy Surgery? No VEEG recommended to assess seizure burden, address new AND concerning syymptom-sign complex, and/or clarify syndromic epilepsy diagnosis? Yes 11/05/2022 Sphenoidal monitoring No Electrode placement Standard Appointments and Tests EPIL EEG LEAD PLACEMENT EPIL VEEG ADMIT TO EMU/PMU Comments: Patient lives in a SNF. Please have family member and caregiver familiar with her care accompany her to her appointment and admission to be able to provide comprehensive history. Thank you - Dona Consultations None Please route this encounter to the EMU Scheduling pool (P EMU) or PMU Scheduling pool (P PMU) through LOS AND Follow up Scheduling coordinators: For all VNS patients being scheduled for FRANCISCO, please schedule VNS off/on office visits.[facility] note Author Tre Frederick [facility] Note Date/Time August 14, 2024 6:2 8am [facility] Medical Records Department [address] [place] [address] Pre-Anesthesia Evaluation 08/14/24 0621 MR#: [id number] Acct: [id number] Name: VIDYA FAN Rep #:[id number] : 1965 59 From: Tre Frederick MD PCP: Syl Goodwin MD Status:REG SDC Y Race: C Location: [place] [address] ASA Classification* ASA Classification ASA Classification: 2 Assessment & Plan Anesthesia* Anesthesia Assessment Anesthesia Assessment: Discussed sedation and/or anesthesia options, risks, benefits, and alternatives with patient/parents/legal guardian/POA. Questions invited. The patient/parents/legal guardian/POA seems to understand and agrees to proceedwith anesthesia plan. Reviewed the physical assessment, medical history, allergy history and patient home medications list prior to surgery/procedure/anesthetic and documented any changes. Performed airway and anesthesia risk assessments. Anesthesia Type Anesthesia Type: General (Pleasant 59 y/o F diagnosed with bipolar/schizo, seemsto be well controlled. Otherwise has hx of GERD, ) History Source History Obtained from:: Patient and Chart Anesthesia Focused Assessment* Temperature: 97.7 F Pulse Rate: 91 Blood Pressure: 109/82 Respiratory Rate: 16 Pulse Ox: 99 Oxygen Delivery Method: Room Air Airway Assessment Mouth opens: >3 cm Mallampati Score: II Teeth Condition: Intact and Chipped/Broken (top left) Neck Range of motion (ROM): Full ROM Focused Labs Anesthesia Preop lab: CBC WBC 10.1 K/mm3 (4.4-11.0) 03/18/24 21:51 03/18/24 RBC 4.71 M/mm3 (4.2-5.4) 03/18/24 21:51 03/18/24 Hgb 14.0 g/dL (12.0-15.0) 03/18/24 21:51 03/18/24 Hct 41.4 % (37-47) 03/18/24 21:51 03/18/24 Plt Count 327 K/mm3 (150-450) 03/18/24 21:51 03/18/24 CHEMISTRY Potassium 3.8 mmol/L (3.5-5.1) 03/18/24 21:51 03/18/24 Sodium 140 mmol/L (136-145) 03/18/24 21:51 03/18/24 BUN 16 mg/dL (7-18) 03/18/24 21:51 03/18/24 Creatinine 0.75 mg/dL (0.55-1.02) 03/18/24 21:51 03/18/24 Glucose 114 mg/dL (74-106) H 03/18/24 21:51 03/18/24 COAG Pre-Assessment Diagnosis/Proposed Procedure Planned Operative Procedure(s): COLONOSCOPY Anesthesia History 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 When Was Last Pacemaker Check QUESTION #4 FULL TEXT: You/Your Family Experience fever (hyperthermia) with Anesthesia Last Oral Intake Last Oral intake: Last Oral Intake NPO since 03:00 08/14/24 06:07 Meds taken in AM with sips of water? Meds patient instructed to take am of surgery PONV PONV - business education professor: PONV - business education professor Female Yes 08/13/24 12:52 HX of Motion Sickness No 08/13/24 12:52 HX of N/V After Surgery No 08/13/24 12:52 Non-Smoker Yes 08/13/24 12:52 Duration of Surgery greater No 08/13/24 12:52 than 60 minutes Number of Risk Factors 2 08/13/24 12:52 PONV Score Moderate Risk 08/13/24 12:52 Height & Weight Height & Weight: Anesthesia: Height & Weight Height 5 ft 6 in 08/14/24 06:07 Weight: 82.9 kg 08/14/24 06:07 Body Mass Index (BMI) 29.5 08/14/24 06:07 Respiratory Assessment Respiratory Assessment - business education professor: Respiratory Tract Infection Hx - business education professor Hx Respiratory Tract Infection No 08/13/24 12:52 STOP Sleep Apnea STOP Sleep Apnea - business education professor: STOP Sleep Apnea - business education professor Hx Hypertension No 08/13/24 12:52 Hx Sleep Apnea No 08/13/24 12:52 CPAP BIPAP Do you snore loudly (louder No 08/13/24 12:52 than talking or can be heard Do you often feel tired/ Yes 08/13/24 12:52 fatigued/ sleepy during daytime? Has anyone observed you stop No 08/13/24 12:52 breathing during sleep? STOP Results Negative 08/13/24 12:52 QUESTION #5 FULL TEXT : Do you snore loudly (louder than talking or can be heard through closed doors)? 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 Specify any problems Hx of Preganancy in last 3 No 08/13/24 12:52 Months Nurse Filling Out Transfusion MGRIFFITH 08/13/24 12:52 & Questions: Date: 08/13/24 08/13/24 12:52 Time: 12:53 08/13/24 12:52 Patient unable to answer at this time (ie. confused, unrespo /Reproduction History /Reproductive History - business education professor: /Reproductive Hx- business education professor Hx Now Gestational Age (in weeks): EDC: Hx Hx Para Hx Section SAB PFSH Medical History Gastric reflux Migraine headache Depression High cholesterol Schizophrenia Bipolar disorder Anxiety Non-smoker Elevated liver enzymes Calculus of gallbladder without cholecystitis without obstruction Transaminitis Home Medications ?Medication ?Instructions ?Recorded ?Last Taken ?Type benztropine 0.5 mg tablet 0.5 mg PO BID 12/29/2308/13 History lamotrigine 200 mg tablet 200 mg PO BID 12/29/2308/13 History donepezil 5 mg tablet (Aricept) 5 mg PO QHS 03/19/24 0 08/13/24 History docusate sodium 100 mg capsule 100 mg PO BID PRN const ipation 06/20/24 Unknown History famotidine 40 mg tablet 40 mg PO QHS #90 tabs 08/13/24 Rx melatonin 3 mg capsule 3 mg PO HS 06/20/24 08/13/24 History mirtazapine 15 mg tablet 15 mg PO QHS 06/20/24 History omeprazole 20 mg capsule,delayed 20 mg PO QDAY 5 Unknown History release paliperidone 6 mg tablet,extended 6 mg PO QAM 06/20/24 08/13/24 History release 24 hr polyethylene glycol 3350 17 4 g PO QDAY 06/20/2408/13 History gram/dose oral powder potassium chloride 20 mEq 20 meq PO QDAY 06/20/2407/28 History tablet,extended release acetaminophen 325 mg capsule 325 mg PO Q4H PRN fever o r pain 08/13/24 Unknown History Allergy/AdvReac Type Severity Reaction Status Date / Time blue dye Allergy PT UNSURE Verified 08/14/24 06:05 OF REACTION monosodium glutamate (msg) Allergy PT UNSURE Verified 08/14/24 06:05 OF REACTION sertraline (From Zoloft) Allergy PT UNSURE Verified 08/14/24 06:05 OF REACTION shellfish derived Allergy PT UNSURE Verified 08/14/24 06:05 OF REACTION Sulfa (Sulfonamide Allergy unknown Verified 08/14/24 06:05 Antibiotics) Social History Smoking Status: Never smoker Review of Systems (Anesthesia) ROS Narrative System reviewed and no additional complaints, except as documented. Physical Exam Const alert, oriented x3 and average body habitus Resp normal respiratory effort, normal air movement and clear to auscultation bilaterally Cardio regular rate, regular rhythm, no murmurs and diaphoretic 08/14/24 0628 <Electronically signed by Tre Fredeirck MD> Date _ Tre Frederick MD Cosigner Signature: Date CC: ~ Signed [facility] Work Phone: Consult note Author Reji Johnson [facility] Note Date/Time August 14, 2024 7:4 5am [facility] Medical Records Department [address] [place] [address] Anesthesia Postop Eval I 08/14/24 0744 MR#: [id number] Acct: [id number] Name: VIDYA FAN Rep #:[id number] : 1965 59 From: Reji ROUSSEAU PCP: Syl Goodwin MD Status:REG [facility] Y Race: C Location: [place] [address] Anesthesia: Postop Eval I Current Vital Signs Temperature: 97.8 F Pulse Rate: 82 Blood Pressure: 105/74 Respiratory Rate: 16 Pulse Ox: 99 Assessment Airway patent: Yes Spontaneous unlabored respirations: Yes nausea: No Vomiting: No Anesthesia Complication: No Fluid Hydration Crystalloid volume administer (ml): 30 Total IV fluid infused: 30 Progress Note Anesthesia document: Postop Eval 1 completed: Yes 08/14/24 0745 <Electronically signed by Reji Johnson CRNA> Date _ Reji Johnson CRNA Cosigner Signature: Date CC: ~ Signed [facility] Work Phone: Consult note Author Tre Frederick [facility] Note Date/Time August 14, 2024 8:1 9am [facility] Medical Records Department [address] [place] [address] Anesthesia Postop Eval II 08/14/24749 MR#: [id number] Acct: [id number] Name: VIDYA FAN Rep #:[id number] : 1965 59 From: Tre Frederick MD PCP: Syl Goodwin MD Status:REG SDC Y Race: C Location: [address] Anesthesia Postop Eval I Sum Postop Eval Completion status Anesthesia document: Postop Eval 1 completed: Yes Anesthesia Postop Eval I Summary Anesthesia Postop Eval I Summary: Anesthesia Postop Eval I: Assessment Summary Airway patent Yes 08/14/24 07:44 FIRST SAMPLER.TNES Spontaneous unlabored Yes 08/14/24 07:44 FIRST SAMPLER.TNES respirations Mental status nausea No 08/14/24 07:44 FIRST SAMPLER.TNES Vomiting No 08/14/24 07:44 FIRST SAMPLER.TNES Anesthesia Postop Eval I: Fluid Summary Crystalloid volume administer 30 08/14/24 07:44 FIRST SAMPLER.TNES (ml) Colloids volume administered ( ml) Blood Product volume administered (ml) Total IV fluid infused 30 08/14/24 07:44 FIRST SAMPLER.TNES Anesthesia Postop Eval I: Summary Notes Anesthesia Complication No 08/14/24 07:44 FIRST SAMPLER.TNES Anesthesia Complication Comment: Post-operative progress note Anesthesia: Postop Eval II Evaluation Mental status: Awake Pain Level: 0 nausea: No Vomiting: No Complications Anesthesia Complication: No 08/14/24749 <Electronically signed by Tre Frederick MD> Date _ Tre Frederick MD Cosigner Signature: Date CC: ~ Signed [facility] Work Phone: Evaluation + Plan note No data available for this section [facility] Evaluation note* Diagnosis Transient vision disturbance- Primary Unspecified visual disturbance documented in this encounter [facility] Author Luis Frye [facility] Note Date/Time August 14, 2024 7:0 3am [facility] Medical Records Department [address] [place] [address] History & Physical Exam 08/14/24 0701 MR#: [id number] Acct: [id number] Name: VIDYA FAN Rep #:[id number] : 1965 59 From: Luis Frye DO PCP: Syl Goodwin MD Status:[facility] Location: [place] [address] HPI - General General Date of Admission: 08/14/24 Date of Service: 08/14/24 Chief Complaint: gerd and screening colon HPI Narrative VIDYA FAN, is a 59 F who presents the evaluation of GERD and CRS COLON: 2017 SSP - recommended recall was for 3 years - denies any change in bowel habits - denies any pain - denies any bleeding - denies any family h/o colon CA - denies any heart or lung disease - denies any kidney disease - denies any weight loss - she c/o GERD for the past 2 years - worse when she lays down - no issues after eating - she reports at least 3-4 hours between dinner and bed - denies any dysphagia - she is on Omeprazole 20mg every morning - has been elevating head with pillows - reports waking at 10 or 11pm and unable to relieve HB - denies any heart or lung disease [facility] Medical History Gastric reflux Migraine headache Depression High cholesterol Schizophrenia Bipolar disorder Anxiety Non-smoker Elevated liver enzymes Calculus of gallbladder without cholecystitis without obstruction Transaminitis Home Medications ?Medication ?Instructions ?Recorded ?Last Taken ?Type benztropine 0.5 mg tablet 0.5 mg PO BID 12/29/2308/13 History lamotrigine 200 mg tablet 200 mg PO BID 12/29/2308/13 History donepezil 5 mg tablet (Aricept) 5 mg PO QHS 03/19/24 0 08/13/24 History docusate sodium 100 mg capsule 100 mg PO BID PRN const ipation 06/20/24 Unknown History famotidine 40 mg tablet 40 mg PO QHS #90 tabs 08/13/24 Rx melatonin 3 mg capsule 3 mg PO HS 06/20/24 08/13/24 History mirtazapine 15 mg tablet 15 mg PO QHS 06/20/24 History omeprazole 20 mg capsule,delayed 20 mg PO QDAY 5 Unknown History release paliperidone 6 mg tablet,extended 6 mg PO QAM 06/20/24 08/13/24 History release 24 hr polyethylene glycol 3350 17 4 g PO QDAY 06/20/2408/13 History gram/dose oral powder potassium chloride 20 mEq 20 meq PO QDAY 06/20/2407/28 History tablet,extended release acetaminophen 325 mg capsule 325 mg PO Q4H PRN fever o r pain 08/13/24 Unknown History Allergy/AdvReac Type Severity Reaction Status Date / Time blue dye Allergy PT UNSURE Verified 08/14/24 06:05 OF REACTION monosodium glutamate (msg) Allergy PT UNSURE Verified 08/14/24 06:05 OF REACTION sertraline (From Zoloft) Allergy PT UNSURE Verified 08/14/24 06:05 OF REACTION shellfish derived Allergy PT UNSURE Verified 08/14/24 06:05 OF REACTION Sulfa (Sulfonamide Allergy unknown Verified 08/14/24 06:05 Antibiotics) Social History Smoking Status: Never smoker ROS Constitutional Constitutional: Denies fatigue, fever(s), poor appetite, weight gain or weight loss Gastrointestinal Gastrointestinal: Denies belching, bloating, change in bowel habits, change in stool character, chewing difficulty, coffee ground emesis, constipation, cramping, diarrhea, dyspepsia, dysphagia, early satiety, excessive flatus, fecalincontinence, heartburn, hematemesis, hematochezia, hemorrhoids, loose stools, melena, nausea, odynophagia, rectal bleeding, tenesmus, vomiting or weight changes Vital Signs Vital Signs Vital Signs: 08/14/24 06:07 08/14/24 06:07 08/14/24 06:23 Temperature 97.7 F L 97.7 F L Temperature Source Temporal Pulse Rate 91 91 Respiratory Rate 16 16 Respiratory Pattern Normal Blood Pressure 109/82 H 109/82 H Blood Pressure Mean 91 Blood Pressure Source Monitor Blood Pressure Position Semi-Fowlers Blood Pressure Location Right Arm Pulse Ox 99 99 Oxygen Delivery Method Room Air Room Air Weight Weight: 182 lb 12.211 oz Body Mass Index (BMI) 29.5 Physical Exam Const alert, oriented x3, no apparent distress and healthy appearing General Appearance: cooperative GI normal to inspection, nondistended, normoactive bowel sounds, soft to palpation,non-tender and non-distended Percussion: normal to percussion Rectal Exam: deferred Assessment & Plan Assessment/Plan (1) GERD (gastroesophageal reflux disease): (2) Personal history of colonic polyps: PLAN: Assessment and Plan Assessment and Plan (1) Personal history of colonic polyps: Status: Acute (2) GERD (gastroesophageal reflux disease): Status: Acute Medications: New famotidine 40 mg PO QHS 90 tabs 3RF Plan 58y/o female presents for consultation for personal history of SSP in 2016. PMH is significant for hyperlipidemia, bipolar disorder, depression, obsessive- compulsive disorder, and schizoaffective disorder. She is being followed by Dr. Quinteros and was last seen 05/07/2024 for follow-up of hallucination, seizures andaltered mental state. CBC and transaminases were unremarkable 03/18/2024. She complains of increased in GERD keeping her up at HS. I have added pepcid at HS in addition to Omeprazole she is taking every morning. She will schedule colonoscopy and EGD. Plan Details Follow Up: 3 Months 08/14/24 0703 <Electronically signed by Luis Frye DO> Cosigner Signature (if applicable): CC: Syl Goodwin MD; Luis Frye DO~ Signed [facility] Work Phone: History of Present illness Narrative* 56-year-old female new patient here came in for blocked ears. She states that she has been very dizzy lightheaded she has a history of cerumen impaction and she has had an ear infection many years ago. Denies fever or chills. Denies ear pain sore throat or nasal congestion. she does not want us to clean out her ears if anything touches my ear drum I vomit and want to pass out. It causes her anxiety talking about it. * She is new to the area she moved from out of [facility] to [place] she has chronic schizophrenia and severe anxiety. She states overall she feels well the only other medical history is migraine. She getsmigraines 1 or 2 times every 3 to 4 months but they last approximately 2 to 3 days. She uses [id number] Excedrin which works well. She would rather not take any new medications for migraines atthis time. [facility] Work Phone: Hospital Discharge instructions No data available for this section [facility] Progress note No data available for this section [facility] Reason for referral (narrative)No reason for referral information availableWCleveland [facility] Work Phone: Summary Purpose Family History No Family History Records FoundNo Family History Records FoundNo Family History Records FoundNo Family History Records FoundNo Family History Records FoundNo Family History Records Found No data available for this section No Family History Records Found Advance Directives No Advanced Directives Records FoundNo Advanced Directives Records FoundNo Advanced Directives Records FoundNo Advanced Directives Records FoundNo Advanced Directives Records FoundNo Advanced Directives Records FoundNo Advanced Directives Records Found Chief 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 bilateral ear concerns, dizzy spells & falling, feels fluid inthem Chief Complaint and Reason for Visit Chief Complaint Admit Date 4 M May 07, 2024 1 1:36am Pre colon June 20, 2024 9 :15am Reason for Visit Admit Date Altered mental status May 07, 2024 11:36am Hallucinations May 07, 2024 1 1:36am Seizures May 07, 2024 1 1:36am GERD (gastroesophageal reflux disease) J anuary 2024 9:15am Personal history of colonic polyps Janua ry 2024 9:15am GERD (gastroesophageal reflux disease) M [facility] 2024 5:42am Personal history of colonic polyps August 14, 2024 5:42am Chief Complaint Admit Date 4 M FU [place] 9th, 2024 1 1:36am Pre colon June 20, 2024 9 :15am INT LABS August 17, 2024 9:5 2am Chief Complaint Admit Date INT LABS August 17, 2024 9:5 2am Test Result September 13, 2024 9:0 2am 6 M FU November 19, 2024 11:2 0am Reason for Visit Admit Date GERD (gastroesophageal reflux disease) M arch 2024 5:42am Personal history of colonic polyps August 14, 2024 5:42am Esophagitis September 13, 2024 9:0 2am GERD (gastroesophageal reflux disease) A pril 2024 9:02am Altered mental status November 19, 2024 11 :20am Hallucinations November 19, 2024 11:2 0am Seizures November 19, 2024 11:2 0am Additional Source Comments INFORMATION SOURCE (unrecogn ized section and content) DATE CREATED AUTHOR 11/22/2017 [facility] DATE CREATED AUTHOR AUTHOR'S ORGANIZ ATION 07/01/2022 [employer] DATE CREATED AUTHOR AUTHOR'S ORGANIZ ATION 07/27/2022 [facility] DATE CREATED AUTHOR AUTHOR'S ORGANIZ ATION 12/10/2022 [facility] ([place]) DATE CREATED AUTHOR AUTHOR'S ORGANIZ ATION 12/17/2022 [facility] DATE CREATED AUTHOR AUTHOR'S ORGANIZ ATION 11/02/2024 [facility] DATE CREATED AUTHOR AUTHOR'S ORGANIZ ATION 11/20/2024 [facility] Source Comments (unrecognize d section and content) In the event this informatio n is protected by the Federal Confidentiality of Alcohol and Drug Abuse Patient Records regulations: The Federal rules restrict any use of the information to criminally investigate or prosecute any alcohol or drug abuse patient.[facility] Reason for Visit (unrecogniz ed section and content) Reason Comments New Patient Specialty Diagnoses / Procedures Referred By Contac t Referred To Contact HOSP INPATIENT Diagnoses Visual hallucinations Procedures EEG PHYS/QHP EA INCR>12HR<26HR AFTER 24HR W/VEEG Hosp Main [id number] [place] [address] Referral ID Status Reason Start Date Expiration Date Visits Re quested Visits Authorized [id number] 1 1 Patient Care team informatio n (unrecognized section and content) Team Status: Active Member Role Status Dates Dr. Syl Goodwin MD Primary Care Provider Active Team Status: Inactive Member Role Status Dates Dr. Oni Quinteros MD Attending Provider Active Start: May 07, 2024 End: May 07, 2024 Dr. Syl Goodwin MD Primary Care Provider Active Start: May 07, 2024 End: May 07, 2024 Dr. Syl Goodwin MD Referring Provider Active Start: May 07, 2024 End: May 07, 2024 Team Status: Inactive Member Role Status Dates Dr. Syl Goodwin MD Primary Care Provider Active Start: June 20, 2024 End: June 20, 2024 Dr. Syl Goodwin MD Referring Provider Active Start: June 20, 2024 End: June 20, 2024 RAMAN Parrish Attending Provider Active Start: June 20, 2024 End: June 20, 2024 Team Status: Inactive Member Role Status Dates Dr. Syl Goodwin MD Primary Care Provider Active Start: August 14, 2024 End: August 14, 2024 Dr. Syl Goodwin MD Referring Provider Active Start: August 14, 2024 End: August 14, 2024 Dr. Luis Frye DO Attending Provider Active Start: August 14, 2024 End: August 14, 2024 Team Status: Active Member Role Status Dates Dr. Syl Goodwin MD Primary Care Provider Active Start: August 14, 2024 Dr. Syl Goodwin MD Referring Provider Active Start: August 14, 2024 Dr. Luis Frye DO Attending Provider Active Start: August 14, 2024 Dr. Luis Frye DO Other Provider Active St art: August 14, 2024 Team Status: Inactive Member Role Status Dates Dr. Syl Goodwin MD Primary Care Provider Active Start: August 17, 2024 End: August 17, 2024 Dr. Oni Quinteros MD Attending Provider Active Start: August 17, 2024 End: August 17, 2024 Dr. Oni Quinteros MD Referring Provider Active Start: August 17, 2024 End: August 17, 2024 Team Status: Inactive Member Role Status Dates Dr. Syl Goodwin MD Primary Care Provider Active Start: September 13, 2024 End: September 13, 2024 Dr. Syl Goodwin MD Referring Provider Active Start: September 13, 2024 End: September 13, 2024 RAMAN Parrish Attending Provider Active Start: September 13, 2024 End: September 13, 2024 Team Status: Inactive Member Role Status Dates Dr. Syl Goodwin MD Primary Care Provider Active Start: November 19, 2024 End: November 19, 2024 Dr. Syl Goodwin MD Referring Provider Active Start: November 19, 2024 End: November 19, 2024 Dr. Oni Quinteros MD Attending Provider Active Start: November 19, 2024 End: November 19, 2024 FOR RECORDS PERTAINING TO PATIENTS WHO ARE OR HAVE BEEN ENROLLED IN A CHEMICAL DEPENDENCY/SUBSTANCEABUSE PROGRAM, SOME INFORMATION MAY BE OMITTED. This clinical summary was aggregated from multiple sources. Caution should be exercised in using it in the provision of clinical care. This summary normalizes information from multiple sources, and as a consequence, information in this document may materially change the coding, format and clinical context of patient data. In addition, data may be omitted in some cases. CLINICAL DECISIONS SHOULD BE BASED ON THE PRIMARY CLINICAL RECORDS. [employer] provides no warranty or guarantee of the accuracy or completeness of information in this document.
--- NOTE | 2024-11-21 06:21 | PRE.ANES_ITS ---
ASA Classification* ASA Classification ASA Classification: 2 Assessment & Plan Anesthesia* Anesthesia Assessment Anesthesia Assessment: Discussed sedation and/or anesthesia options, risks, benefits, and alternatives with patient/parents/legal guardian/POA. Questions invited. The patient/parents/legal guardian/POA seems to understand and agrees to proceed with anesthesia plan. Reviewed the physical assessment, medical history, allergy history and patient home medications list prior to surgery/procedure/anesthetic and documented any changes. Performed airway and anesthesia risk assessments. Anesthesia Type Anesthesia Type: MAC (Prolonged QT on last EKG, NO ZOFRAN) History Source History Obtained from:: Patient and Chart Anesthesia Focused Assessment* Temperature: 98 F Pulse Rate: 77 Blood Pressure: 125/81 Respiratory Rate: 18 Pulse Ox: 97 Oxygen Delivery Method: Room Air Airway Assessment Mouth opens: >3 cm Mallampati Score: II Teeth Condition: Missing (multiple pulled) Neck Range of motion (ROM): Full ROM Labs Anesthesia Preop lab: CBC WBC 8.0 K/mm3 (4.4-11.0) 08/17/24 10:02 08/17/24 RBC 4.37 M/mm3 (4.2-5.4) 08/17/24 10:02 08/17/24 Hgb 12.3 g/dL (12.0-15.0) 08/17/24 10:02 08/17/24 Hct 37.1 % (37-47) 08/17/24 10:02 08/17/24 Plt Count 290 K/mm3 (150-450) 08/17/24 10:02 08/17/24 CHEMISTRY Potassium 3.8 mmol/L (3.3-5.1) 08/17/24 10:02 08/17/24 Sodium 138 mmol/L (133-145) 08/17/24 10:02 08/17/24 Magnesium 2.1 mg/dL (1.5-2.2) 08/17/24 10:02 08/17/24 BUN 10 mg/dL (4-19) 08/17/24 10:02 08/17/24 Creatinine 0.71 mg/dL (0.70-1.20) 08/17/24 10:02 08/17/24 Glucose 92 mg/dL (70-99) 08/17/24 10:02 08/17/24 TSH 1.400 uIU/mL (0.300-4.200) 08/17/24 10:02 07/29 06/23 COAG Pre-Assessment Diagnosis/Proposed Procedure Planned Operative Procedure(s): EGD Anesthesia History Anesthesia History - pool finisher: Anesthesia History - pool finisher Hx Hospitalization No 11/20/24 12:32 Any Problems With Anesthesia No 11/20/24 12:32 Cholinesterase deficiency No 11/20/24 12:32 You/Your Family Experience No 11/20/24 12:32 fever (hyperthermia) with Relationship Recent Exposure to Contagious No 08/14/24 06:07 Disease Does patient have nerve No 11/20/24 12:32 stimulator Patient instructed to have device shut off --Does patient have Pacemaker or ICD? When Was Last Pacemaker Check QUESTION #4 FULL TEXT: You/Your Family Experience fever (hyperthermia) with Anesthesia Last Oral Intake Last Oral intake: Last Oral Intake NPO since Meds taken in AM with sips of water? Meds patient instructed to take am of surgery Any additional information?: Yes NPO since: 19:15 (11/21/24) Meds taken in AM with sips of water?: No Meds patient instructed to take am of surgery: no meds this morning PONV PONV - pool finisher: PONV - pool finisher Female Yes 11/20/24 12:32 HX of Motion Sickness No 11/20/24 12:32 HX of N/V After Surgery No 11/20/24 12:32 Non-Smoker Yes 11/20/24 12:32 Duration of Surgery greater No 11/20/24 12:32 than 60 minutes Number of Risk Factors 2 11/20/24 12:32 PONV Score Moderate Risk 11/20/24 12:32 Any additional information?: No Height & Weight Height & Weight: Anesthesia: Height & Weight Height 5 ft 6 in 09/13/24 09:15 Respiratory Assessment Respiratory Assessment - pool finisher: Respiratory Tract Infection Hx - pool finisher Hx Respiratory Tract Infection No 11/20/24 12:32 Any additional information?: No STOP Sleep Apnea STOP Sleep Apnea - pool finisher: STOP Sleep Apnea - pool finisher Hx Hypertension No 11/20/24 12:32 Hx Sleep Apnea No 11/20/24 12:32 CPAP BIPAP Do you snore loudly (louder No 11/20/24 12:32 than talking or can be heard Do you often feel tired/ No 11/20/24 12:32 fatigued/ sleepy during daytime? Has anyone observed you stop No 11/20/24 12:32 breathing during sleep? STOP Results Negative 11/20/24 12:32 QUESTION #5 FULL TEXT : Do you snore loudly (louder than talking or can be heard through closed doors)? 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 Specify any problems Hx of Preganancy in last 3 No 11/20/24 12:32 Months Nurse Filling Out Transfusion DSCHRIBER 11/20/24 12:32 & Questions: Date: 11/20/24 11/20/24 12:32 Time: 12:34 11/20/24 12:32 Patient unable to answer at this time (ie. confused, unrespo Any additional information?: No /Reproduction History /Reproductive History - pool finisher: /Reproductive Hx- pool finisher Hx Now No 11/20/24 12:32 Gestational Age (in weeks): EDC: Hx Hx Para Hx Section SAB No 11/20/24 12:32 Any additional information?: No Active Medications Active Medications: Current Medications Generic Name Dose Route Start Last Admin Trade Name Freq PRN Reason Stop Dose Admin Lactated Ringer's 1,000 mls @ 15 mls/hr 11/21/24 06:15 IV .Q48H RUPAL PFSH Medical History (Updated 11/20/24 @ 12:39 by Jennie Troy) Legal blindness Esophagitis Essential tremor Lives in [facility] Gastric reflux Migraine headache Depression High cholesterol Schizophrenia Bipolar disorder Anxiety Non-smoker Elevated liver enzymes Calculus of gallbladder without cholecystitis without obstruction Transaminitis Home Medications ?Medication ?Instructions ?Recorded ?Last Taken ?Type benztropine 0.5 mg tablet 0.5 mg PO BID 12/29/2308/13 History lamotrigine 200 mg tablet 200 mg PO BID 12/29/2308/13 History donepezil 5 mg tablet (Aricept) 5 mg PO QHS 03/19/24 0 08/13/24 History docusate sodium 100 mg capsule 100 mg PO BID PRN const ipation 06/20/24 Unknown History melatonin 3 mg capsule 3 mg PO HS 06/20/24 08/13/24 History mirtazapine 15 mg tablet 15 mg PO QHS 06/20/24 History paliperidone 6 mg tablet,extended 9 mg PO QHS 06/20/24 08/13/24 History release 24 hr polyethylene glycol 3350 17 4 g PO QDAY PRN constipati on 06/20/24 08/13/24 History gram/dose oral powder potassium chloride 20 mEq 20 meq PO QDAY 06/20/2407/28 History tablet,extended release acetaminophen 325 mg capsule 650 mg PO Q4H PRN fever o r pain 08/13/24 Unknown History cetirizine 10 mg tablet (Zyrtec) 10 mg PO DAILY PRN al lergy symptoms 11/20/24 Unknown History hydroxyzine HCl 25 mg tablet 25 mg PO Q6H PRN anxiety 11/20/24 Unknown History ibuprofen 400 mg tablet (IBU) 400 mg PO Q8H PRN pain 0 11/20/24 Unknown History Allergy/AdvReac Type Severity Reaction Status Date / Time blue dye Allergy PT UNSURE Verified 11/20/24 12:23 OF REACTION monosodium glutamate (msg) Allergy PT UNSURE Verified 11/20/24 12:23 OF REACTION sertraline (From Zoloft) Allergy PT UNSURE Verified 11/20/24 12:23 OF REACTION shellfish derived Allergy PT UNSURE Verified 11/20/24 12:23 OF REACTION Sulfa (Sulfonamide Allergy unknown Verified 11/20/24 12:23 Antibiotics) Surgical History History of esophagogastroduodenoscopy (EGD) Social History Smoking Status: Never smoker Review of Systems (Anesthesia) ROS Narrative System reviewed and no additional complaints, except as documented.
[2024-11-21] MEDS: Lactated Ringers 1,000 ML 15 ML IV (06:33)
--- NOTE | 2024-11-21 06:52 | PCM.HP.STD ---
HPI - General General Date of Admission: 11/21/24 Date of Service: 11/21/24 Chief Complaint: GERD HPI Narrative VIDYA FAN, is a 59 F who presents for the evaluation of medical therapy of severe erosive esophagitis INITIAL Consult 06/20/2024 58y/o female presents for consultation for personal history of SSP in 2017. PMH is significant for hyperlipidemia, bipolar disorder, depression, obsessive-compulsive disorder, and schizoaffective disorder. She is being followed by Dr. Quinteros and was last seen 05/07/2024 for follow-up of hallucination, seizures and altered mental state. CBC and transaminases were unremarkable 03/18/2024. She complains of increased in GERD keeping her up at HS. I have added pepcid at HS in addition to Omeprazole she is taking every morning. She will schedule colonoscopy and EGD. EGD 08/14/2024 neg. for Angulo's - LA Grade C reflux esophagitis with no bleeding. Biopsied. - Moderate Schatzki ring. Dilated. - Medium-sized hiatal hernia. - No gross lesions in the first portion of the duodenum. Recommendation: - Discharge patient to home. - Resume previous diet. - Continue present medications. - Await pathology results. -Omeprazole 20 mg p.o. twice daily COLON 08/14/2024 - TA's - Diverticulosis in the recto-sigmoid colon and in the sigmoid colon. - Two 6 mm polyps in the transverse colon, removed with a jumbo cold forceps. Resected and retrieved. - One 11 mm polyp at the hepatic flexure, removed with a hot snare. Resected and retrieved. Recommendation: - Repeat colonoscopy in 3 years for surveillance. - denies any dysphagia - she has been limiting PO intake later in the evening - has been sleeping with HOB elevated - she has been talking with PT and has plans to start diaphragmatic breathing - denies any N/V - denies any abdominal pain - denies any weight loss - she is now exercising 5 days a week - reports she stopped Omeprazole with in a week of starting - states she is only taking famotidine at HS - symptoms have resolved [facility] Medical History Legal blindness Esophagitis Essential tremor Lives in long-term Gastric reflux Migraine headache Depression High cholesterol Schizophrenia Bipolar disorder Anxiety Non-smoker Elevated liver enzymes Calculus of gallbladder without cholecystitis without obstruction Transaminitis Home Medications ?Medication ?Instructions ?Recorded ?Last Taken ?Type benztropine 0.5 mg tablet 0.5 mg PO BID 12/29/23 11/20/24 History lamotrigine 200 mg tablet 200 mg PO BID 12/29/23 11/20/24 History donepezil 5 mg tablet (Aricept) 5 mg PO QHS 03/19/24 11/20/24 History docusate sodium 100 mg capsule 100 mg PO BID PRN constipation 06/20/24 Unknown History melatonin 3 mg capsule 3 mg PO HS 06/20/24 11/20/24 History mirtazapine 15 mg tablet 15 mg PO QHS 06/20/24 11/20/24 History paliperidone 6 mg tablet,extended 9 mg PO QHS 06/20/24 08/13/24 History release 24 hr polyethylene glycol 3350 17 4 g PO QDAY PRN constipation 06/20/24 08/13/24 History gram/dose oral powder potassium chloride 20 mEq 20 meq PO QDAY 06/20/24 08/13/24 History tablet,extended release acetaminophen 325 mg capsule 650 mg PO Q4H PRN fever or pain 08/13/24 Unknown History cetirizine 10 mg tablet (Zyrtec) 10 mg PO DAILY PRN allergy symptoms 11/20/24 11/20/24 History hydroxyzine HCl 25 mg tablet 25 mg PO Q6H PRN anxiety 11/20/24 Unknown History ibuprofen 400 mg tablet (IBU) 400 mg PO Q8H PRN pain 11/20/24 Unknown History omeprazole 20 mg capsule,delayed 20 mg PO BID 11/21/24 11/20/24 History release paliperidone 9 mg tablet,extended 9 mg PO QHS SCHIZOAFFECTIVE 11/21/24 11/20/24 History release 24 hr DISORDER potassium chloride 20 mEq 20 meq PO DAILY HYPOKALEMIA 11/21/24 11/20/24 History tablet,extended release(part/cryst) Allergy/AdvReac Type Severity Reaction Status Date / Time blue dye Allergy PT UNSURE Verified 11/20/24 12:23 OF REACTION monosodium glutamate (msg) Allergy PT UNSURE Verified 11/20/24 12:23 OF REACTION sertraline (From Zoloft) Allergy PT UNSURE Verified 11/20/24 12:23 OF REACTION shellfish derived Allergy PT UNSURE Verified 11/20/24 12:23 OF REACTION Sulfa (Sulfonamide Allergy unknown Verified 11/20/24 12:23 Antibiotics) Surgical History History of esophagogastroduodenoscopy (EGD) Social History Smoking Status: Never smoker ROS Constitutional Constitutional: Denies fatigue, fever(s), poor appetite, weight gain or weight loss Gastrointestinal Gastrointestinal: Denies belching, bloating, change in bowel habits, change in stool character, chewing difficulty, coffee ground emesis, constipation, cramping, diarrhea, dyspepsia, dysphagia, early satiety, excessive flatus, fecal incontinence, heartburn, hematemesis, hematochezia, hemorrhoids, loose stools, melena, nausea, odynophagia, rectal bleeding, tenesmus, vomiting or weight changes Vital Signs Vital Signs Vital Signs: 11/21/24 06:22 11/21/24 06:22 11/21/24 06:26 Temperature 98.0 F 98 F Temperature Source Temporal Pulse Rate 77 77 Respiratory Rate 18 18 Respiratory Pattern Normal Blood Pressure 125/81 H 125/81 H Blood Pressure Mean 95 Blood Pressure Source Monitor Blood Pressure Position Sitting Blood Pressure Location Left Arm Pulse Ox 97 97 Oxygen Delivery Method Room Air Room Air Weight Weight: 187 lb 6.287 oz Body Mass Index (BMI) 30.2 Physical Exam Const alert, oriented x3, no apparent distress and healthy appearing General Appearance: cooperative GI normal to inspection, nondistended, normoactive bowel sounds, soft to palpation, non-tender and non-distended Percussion: normal to percussion Rectal Exam: deferred Assessment & Plan Assessment/Plan (1) Esophagitis: (2) GERD (gastroesophageal reflux disease): QUALIFIERS: Esophagitis presence: with esophagitis Esophagitis bleeding: without hemorrhage Qualified Code(s): K21.00 - Gastro-esophageal reflux disease with esophagitis, without bleeding PLAN: Assessment and Plan Assessment and Plan (1) GERD (gastroesophageal reflux disease): Status: Acute Qualifiers: Esophagitis presence: with esophagitis Esophagitis bleeding: without hemorrhage Qualified Code(s): K21.00 - Gastro-esophageal reflux disease with esophagitis, without bleeding (2) Esophagitis: Status: Acute Plan: PPI BID, repeat EGD in 3 months Plan 59-year-old female presents for follow-up post procedures. EGD was revealing for grade C reflux esophagitis, Schatzki's ring (dilated) and medium hiatal hernia. I have recommended she discontinue famotidine and start omeprazole 20 mg twice daily. Will plan to repeat EGD in 3 months to assess mucosal healing of grade C esophagitis. Colonoscopy was revealing for tubular adenomas and is recommended to repeat colonoscopy in 3 years. Patient Instructions: Discontinue Famotidine Start Omeprazole 20mg twice a day Repeat EGD in 3 months to follow-up esophagitis healing (Grade C) The colon polyps that we removed during your colonoscopy were benign (tubular adenomas). We should repeat the colonoscopy in 3 years or sooner if new symptoms develop. Please let us know if you are having any ongoing GI symptoms or concerns. PPIs are the most effective medical treatment for GERD. Some medical studies have identified an association between the long-term use of PPIs and the development of numerous adverse conditions including intestinal infections, pneumonia, stomach cancer, osteoporosis-related bone fractures, chronic kidney disease, deficiencies of certain vitamins and minerals, heart attacks, strokes, dementia, and early . Those studies have flaws, are not considered definitive, and do not establish a [id number] relationship between PPIs and the adverse conditions. High-quality studies have found that PPIs do not significantly increase the risk of any of these conditions except intestinal infections. Nevertheless, we cannot exclude the possibility that PPIs might confer a small increase in the risk of developing these adverse conditions. For the treatment of GERD, gastroenterologists generally agree that the well-established benefits of PPIs far outweigh their theoretical risks.
--- NOTE | 2024-11-21 07:00 | EGD_PTH ---
PATIENT: VIDYA FAN LOC: EN U#:[id number] AGE/SX: 59/F ROOM: RE11/21/[address]: Dr. Luis Frye DO : 1965 BED: DIS: 11/21/2024 SPEC #: [id number] RECD: 11/21/24 11:05 STATUS: IRAIDA ROBERT #: [id number] MARTHA: 11/21/24 07:[address]: Luis Frye DEPT: SURGICAL PATHOLOGY RECD BY: Chencho Rucker ENTERED: 11/21/24 13:17 SP TYPE: EGD BIOPSY LINDA DR: Dr. Syl Machado MD Tissues: A - Esophagus, NOS Procedures: Surgery Specimen Level IV HEADER OPERATION: EGD with biopsy PRE-OP DIAGNOSIS: GERD, esophagitis TISSUE SUBMITTED: A- Distal esophagus biopsy MICROSCOPIC DIAGNOSIS A. Distal esophagus, biopsy: - Squamous mucosa with mild reactive change. - Columnar mucosa negative for goblet cell metaplasia. MICROSCOPIC DESCRIPTION Slides are reviewed. GROSS DESCRIPTION A. Received in fixative is one container labeled with the patient's name and designated Distal esophagus biopsy. The specimen consists of three irregular fragments of light feldman soft tissue that in aggregate measure 0.2 to 0.3 cm. The specimen is totally submitted in one cassette. RADHA/ 11/21/2024 CPT:[id number]
--- NOTE | 2024-11-21 07:30 | PCM.POST.ANE ---
Anesthesia: Postop Eval I Current Vital Signs Temperature: 97 F Pulse Rate: 88 Blood Pressure: 110/88 Respiratory Rate: 20 Pulse Ox: 95 Assessment Airway patent: Yes Spontaneous unlabored respirations: Yes nausea: No Vomiting: No Anesthesia Complication: No Fluid Hydration Crystalloid volume administer (ml): 300 Total IV fluid infused: 300 Progress Note Anesthesia document: Postop Eval 1 completed: Yes
--- NOTE | 2024-11-21 07:31 | OP.CCLET_ITS ---
11/21/2024 Syl Machado Md Re : Upper GI endoscopy procedure for Joleen Sevilla Dear Dr. Machado This procedure was performed on Thursday, November 21, 2024. My impressions and recommendations are as follows: Impressions : - Z-line irregular, 38 cm from the incisors. Biopsied. - Small hiatal hernia. - No gross lesions in the entire stomach. - No gross lesions in the second portion of the duodenum. Recommendations : - Discharge patient to home. - Resume previous diet. - Continue present medications. My findings are described in the full procedure note, which is enclosed. If I can be of further assistance, please feel free to contact me at . Sincerely, Luis Frye, 11/21/2024 7:30:47 AM This report has been signed electronically.
--- NOTE | 2024-11-21 07:31 | OP.EGD_ITS ---
Patient Name: Joleen Sevilla Procedure Date: 11/21/2024 7:14 AM Date of : 1965 Age: 59 Procedure: Upper GI endoscopy Indications: Heartburn, Suspected Angulo's esophagus Providers: Luis Frye DO Referring MD: Syl Machado Md Medicines: Monitored Anesthesia Care Patient Profile: This is a 59 year old female. Refer to note in patient chart for documentation of history and physical. Patient has symptoms of chronic heartburn. Complications: No immediate complications. Procedure: Pre-Anesthesia Assessment: - Prior to the procedure, a History and Physical was performed, and patient medications and allergies were reviewed. The patient is competent. The risks and benefits of the procedure and the sedation options and risks were discussed with the patient. All questions were answered and informed consent was obtained. Patient identification and proposed procedure were verified by the physician in the pre-procedure area. Mental Status Examination: alert and oriented. Airway Examination: normal oropharyngeal airway and neck mobility. Respiratory Examination: clear to auscultation. CV Examination: normal. Prophylactic Antibiotics: The patient does not require prophylactic antibiotics. Prior Anticoagulants: The patient has taken no anticoagulant or antiplatelet agents except for NSAID medication. ASA Grade Assessment: II - A patient with mild systemic disease. After reviewing the risks and benefits, the patient was deemed in satisfactory condition to undergo the procedure. The anesthesia plan was to use monitored anesthesia care (MAC). Immediately prior to administration of medications, the patient was re-assessed for adequacy to receive sedatives. The heart rate, respiratory rate, oxygen saturations, blood pressure, adequacy of pulmonary ventilation, and response to care were monitored throughout the procedure. The physical status of the patient was re-assessed after the procedure. After obtaining informed consent, the endoscope was passed under direct vision. Throughout the procedure, the patient's blood pressure, pulse, and oxygen saturations were monitored continuously. The gastroscope was introduced through the mouth, and advanced to the second part of duodenum. The upper GI endoscopy was accomplished with ease. The patient tolerated the procedure well. Scope In: 7:21:51 AM Scope Out: 7:24:25 AM Total Procedure Duration Time 0 hours 2 minutes 34 seconds Findings: The Z-line was irregular and was found 38 cm from the incisors. Biopsies were taken with a cold forceps for histology. Verification of patient identification for the specimen was done. Estimated blood loss was minimal. A small hiatal hernia was present. No gross lesions were noted in the entire examined stomach. No gross lesions were noted in the second portion of the duodenum. Impression: - Z-line irregular, 38 cm from the incisors. Biopsied. - Small hiatal hernia. - No gross lesions in the entire stomach. - No gross lesions in the second portion of the duodenum. Recommendation: - Discharge patient to home. - Resume previous diet. - Continue present medications. Procedure Code(s): --- Professional --- 10645, Esophagogastroduodenoscopy, flexible, transoral; with biopsy, single or multiple CPT copyright 2021 [employer]. All rights reserved. The codes documented in this report are preliminary and upon protective service specialist review may be revised to meet current compliance requirements. Luis Frye DO 11/21/2024 7:30:47 AM This report has been signed electronically. Number of Addenda: 0 Note Initiated On: 11/21/2024 7:14 AM
--- NOTE | 2024-11-21 08:07 | POSTOPAN2_ITS ---
Anesthesia Postop Eval I Sum Postop Eval Completion status Anesthesia document: Postop Eval 1 completed: Yes Anesthesia Postop Eval I Summary Anesthesia Postop Eval I Summary: Anesthesia Postop Eval I: Assessment Summary Airway patent Yes 11/21/24 07:31 UNIX SYSTEM ADMINISTRATOR.[email or web address] Spontaneous unlabored Yes 11/21/24 07:31 UNIX SYSTEM ADMINISTRATOR.CSIR respirations Mental status nausea No 11/21/24 07:31 UNIX SYSTEM ADMINISTRATOR.CSIR Vomiting No 11/21/24 07:31 UNIX SYSTEM ADMINISTRATOR.CSIR Anesthesia Postop Eval I: Fluid Summary Crystalloid volume administer 300 11/21/24 07:31 UNIX SYSTEM ADMINISTRATOR.CSIR (ml) Colloids volume administered ( ml) Blood Product volume administered (ml) Total IV fluid infused 300 11/21/24 07:31 UNIX SYSTEM ADMINISTRATOR.CSIR Anesthesia Postop Eval I: Summary Notes Anesthesia Complication No 11/21/24 07:31 UNIX SYSTEM [email or web address].CSIR Anesthesia Complication Comment: Post-operative progress note Anesthesia: Postop Eval II Evaluation Mental status: Awake Pain Level: 0 nausea: No Vomiting: No
--- NOTE | 2024-11-21 08:07 | PCM.POSTANE2 ---
Anesthesia Postop Eval I Sum Postop Eval Completion status Anesthesia document: Postop Eval 1 completed: Yes Anesthesia Postop Eval I Summary Anesthesia Postop Eval I Summary: Anesthesia Postop Eval I: Assessment Summary Airway patent Yes 11/21/24 07:31 PNEUMATIC TOOL OPERATOR.CSIR Spontaneous unlabored Yes 11/21/24 07:31 PNEUMATIC TOOL OPERATOR.CSIR respirations Mental status nausea No 11/21/24 07:31 PNEUMATIC TOOL OPERATOR.CSIR Vomiting No 11/21/24 07:31 PNEUMATIC TOOL OPERATOR.CSIR Anesthesia Postop Eval I: Fluid Summary Crystalloid volume administer 300 11/21/24 07:31 PNEUMATIC TOOL OPERATOR.CSIR (ml) Colloids volume administered ( ml) Blood Product volume administered (ml) Total IV fluid infused 300 11/21/24 07:31 PNEUMATIC TOOL OPERATOR.CSIR Anesthesia Postop Eval I: Summary Notes Anesthesia Complication No 11/21/24 07:31 PNEUMATIC TOOL OPERATOR.CSIR Anesthesia Complication Comment: Post-operative progress note Anesthesia: Postop Eval II Evaluation Mental status: Awake Pain Level: 0 nausea: No Vomiting: No
== END 2024-11-21 08:28 | disposition home or self-care (01) ==
LOC: EN 06:00 → AC 06:03
PROVIDERS: PCP Internal Medicine; Referring Provider Internal Medicine; Visit Provider Internal Medicine Gastroenterology
PROC: 0DJ08ZZ Inspection of Upper Intestinal Tract, Via Natural or Artificial Opening Endoscopic (ICD-10-PCS; CPT 43235; principal; 2024-11-21 06:55)
DX: K21.00 Gastro-esophageal reflux disease with esophagitis, without bleeding (principal); K44.9 Diaphragmatic hernia without obstruction or gangrene; Z79.899 Other long term (current) drug therapy
CPT/HCPCS: 43239; 88305